=== PATIENT | female | born 1980 | race Caucasian/White ===

== ENCOUNTER → 2016-12-02 | Outpatient (CLI) | payer BC ==
[~2016-12-02] MED LIST: BENA25CA4 PO; MAXA10TA14 PO; MOME50SP; PERCOCET PO; SING10TA32 PO; TOPA100T8 OR; TOPA50TA7 PO; VALA1TAB OR; VOLT100T2 OR; ZYRT10TA2 PO
[2016-12-02 11:18] LABS: BASO % 0.7 % (0.0-1.0); EOS # 0.2 K/mm3 (0.0-0.50); EOS % 3.7 % (0.0-3.0); LARGE UNSTAINED CELL # 0.1 K/mm3 (0.0-0.4); LARGE UNSTAINED CELL % 1.9 % (0.0-4.0); LYMPH # 1.5 K/mm3 (1.5-4.5); LYMPH % 29.9 % (24.0-44.0); MEAN CORPUSCULAR HEMOGLOBIN 30.4 pg (27.0-33.0); MEAN CORPUSCULAR HGB CONC 34.7 g/dl (32.0-36.5); MEAN CORPUSCULAR VOLUME 87.6 fl (80.0-96.0); MONO # 0.4 K/mm3 (0.0-0.8); MONO % 8.2 % (0.0-5.0); NEUTROPHILS # 2.5 K/mm3 (1.8-7.7); NEUTROPHILS % 55.6 % (36.0-66.0); PLATELET COUNT, AUTOMATED 188 k/mm3 (150-450); RED CELL DISTRIBUTION WIDTH 13.3 % (11.5-14.5); WHITE BLOOD COUNT 4.6 K/mm3 (4.0-10.0)
[2016-12-02 11:34] LABS: ALBUMIN 3.5 GM/DL (3.2-5.2); ALBUMIN/GLOBULIN RATIO 1.17 (1.00-1.93); ALKALINE PHOSPHATASE 58 U/L (45-117); ALT/SGPT 30 U/L (12-78); ANION GAP 14 MEQ/L (8-16); AST/SGOT 20 U/L (15-37); BILIRUBIN,TOTAL 0.3 MG/DL (0.2-1.0); BLOOD UREA NITROGEN 7 MG/DL (7-18); CALCIUM LEVEL 8.8 MG/DL (8.5-10.1); CARBON DIOXIDE LEVEL 24 MEQ/L (21-32); CHLORIDE LEVEL 106 MEQ/L (98-107); CREATININE FOR GFR 0.57 MG/DL (0.55-1.02); FERRITIN 38 NG/ML (8-252); GLOMERULAR FILTRATION RATE > 60.0 (>60); GLUCOSE, FASTING 77 MG/DL (70-105); MAGNESIUM LEVEL 2.1 MG/DL (1.8-2.4); PERCENT SATURATION 29.4 % (13.2-37.4); PHOSPHORUS LEVEL 3.7 MG/DL (2.5-4.9); POTASSIUM SERUM 3.9 MEQ/L (3.5-5.1); SODIUM LEVEL 144 MEQ/L (136-145); TOTAL IRON BINDING CAPACITY 218 UG/DL (250-450); TOTAL PROTEIN 6.5 GM/DL (6.4-8.2)
[2016-12-02 11:37] LABS: VITAMIN B12 LEVEL 1508 PG/ML (247-911)
[2016-12-04 11:32] LABS: PRETREATED FOLATE FOR RBCFOL 7.3 NG/ML
== END ==
LOC: M LAB 10:26
PROVIDERS: ATTEND Surgery
DX: K91.2 Postsurgical malabsorption, not elsewhere classified (principal); Z98.84 Bariatric surgery status; E55.9 Vitamin D deficiency, unspecified

== ENCOUNTER 2017-01-16 08:19 | Emergency (ER) | payer BC ==
[~2017-01-16] VITALS: Ht 157.5 cm; Wt 85.7 kg
[2017-01-16] MEDS ORDERED: MULT1TAB18 PO (08:54)
[2017-01-16] MEDS ORDERED: LEXA1TAB PO (08:54)
[2017-01-16] MEDS ORDERED: NS 1,000 ML IV ONE (09:30)
[2017-01-16 09:57] LABS: BASO % 0.5 % (0.0-1.0); CONTROL LINE UCG INT CTR LINE PRESENT; EOS # 0.3 K/mm3 (0.0-0.50); EOS % 4.6 % (0.0-3.0); LARGE UNSTAINED CELL # 0.1 K/mm3 (0.0-0.4); LARGE UNSTAINED CELL % 2.3 % (0.0-4.0); LYMPH # 1.3 K/mm3 (1.5-4.5); LYMPH % 21.2 % (24.0-44.0); MEAN CORPUSCULAR HEMOGLOBIN 29.4 pg (27.0-33.0); MEAN CORPUSCULAR HGB CONC 32.8 g/dl (32.0-36.5); MEAN CORPUSCULAR VOLUME 89.6 fl (80.0-96.0); MONO # 0.4 K/mm3 (0.0-0.8); MONO % 6.9 % (0.0-5.0); NEUTROPHILS # 3.7 K/mm3 (1.8-7.7); NEUTROPHILS % 64.6 % (36.0-66.0); PLATELET COUNT, AUTOMATED 198 k/mm3 (150-450); RED CELL DISTRIBUTION WIDTH 13.2 % (11.5-14.5); WHITE BLOOD COUNT 5.7 K/mm3 (4.0-10.0)
[2017-01-16 10:09] LABS: ALBUMIN/GLOBULIN RATIO 0.83 (1.00-1.93); ALKALINE PHOSPHATASE 59 U/L (45-117); ALT/SGPT 19 U/L (12-78); ANION GAP 9 MEQ/L (8-16); AST/SGOT 10 U/L (15-37); BILIRUBIN,DIRECT < 0.1 MG/DL (0.0-0.2); BILIRUBIN,TOTAL 0.3 MG/DL (0.2-1.0); BLOOD UREA NITROGEN 4 MG/DL (7-18); CALCIUM LEVEL 8.8 MG/DL (8.5-10.1); CARBON DIOXIDE LEVEL 26 MEQ/L (21-32); CHLORIDE LEVEL 109 MEQ/L (98-107); CREATININE FOR GFR 0.51 MG/DL (0.55-1.02); GLOMERULAR FILTRATION RATE > 60.0 (>60); GLUCOSE, FASTING 82 MG/DL (70-105); POTASSIUM SERUM 3.1 MEQ/L (3.5-5.1); SODIUM LEVEL 144 MEQ/L (136-145); TOTAL PROTEIN 6.6 GM/DL (6.4-8.2)
[2017-01-16] MEDS ORDERED: ISOVUE-370 76% 100ML VIAL (Q9967) As Ordered ONE (10:19)
[2017-01-16 10:46] VITALS: BP 129/75
[2017-01-16] MEDS ORDERED: ULTR50TA PO (10:47)
[2017-01-16] MEDS ORDERED: POTA10TA16 PO (10:49)
--- NOTE | 2017-01-16 10:56 | REP ---
Dyspnea, possible pulmonary embolus. PRIORS: None. Contrast utilized: 75 mL Isovue 370. There is excellent visualization of the pulmonary arterial vasculature. There are no focal filling defects present that would be considered consistent with pulmonary emboli. There is no mediastinal or hilar mass or adenopathy. There are no pleural or pericardial effusions. The imaged upper abdomen and imaged osseous structures are within normal limits. Evaluation of the lung paulino show no abnormal masses, nodules, or opacities. IMPRESSION: CT findings are within normal limits. Signed by Brandon Beck DO 01/16/2017 11:06 A
--- NOTE | 2017-01-17 09:14 | ECGEPIP ---
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
== END 2017-01-16 10:54 | disposition home or self-care (01) ==
LOC: M ED 09:57
DX: M62.838 Other muscle spasm (principal); E87.5 Hyperkalemia; E66.9 Obesity, unspecified; Z79.899 Other long term (current) drug therapy; Z88.5 Allergy status to narcotic agent; Z88.0 Allergy status to penicillin; Z88.2 Allergy status to sulfonamides
CPT/HCPCS: 71275; 80048; 80076; 81001; 82550; 82553; 83690; 84703; 85025; 93005; 96360; 99282; Q9967

== ENCOUNTER → 2017-01-19 | Outpatient (REF) | payer BC ==
[~2017-01-19] MED LIST changes: +LEXA1TAB PO; +MULT1TAB18 PO; +POTA10TA16 PO; +ULTR50TA PO
[2017-01-19 11:37] LABS: ANION GAP 8 MEQ/L (8-16); BLOOD UREA NITROGEN 7 MG/DL (7-18); CALCIUM LEVEL 8.7 MG/DL (8.5-10.1); CARBON DIOXIDE LEVEL 26 MEQ/L (21-32); CHLORIDE LEVEL 112 MEQ/L (98-107); CREATININE FOR GFR 0.61 MG/DL (0.55-1.02); GLOMERULAR FILTRATION RATE > 60.0 (>60); GLUCOSE, FASTING 92 MG/DL (70-105); POTASSIUM SERUM 3.9 MEQ/L (3.5-5.1); SODIUM LEVEL 146 MEQ/L (136-145)
== END ==
LOC: M SFHCPLAZ 08:40
PROVIDERS: ATTEND Nurse Practitioner Family
DX: E87.6 Hypokalemia (principal)

== ENCOUNTER → 2017-05-09 | Outpatient (CLI) | payer BC ==
[~2017-05-09] MED LIST changes: +TOPA100T12 OR; -TOPA100T8 OR; -TOPA50TA7 PO; +TOPA50TA8 PO; -ULTR50TA PO; +ULTR50TA8 PO; -VALA1TAB OR; +VALA1TAB2 OR
[2017-05-09 10:42] LABS: BASO % 0.6 % (0.0-1.0); EOS # 0.1 K/mm3 (0.0-0.50); EOS % 2.9 % (0.0-3.0); LARGE UNSTAINED CELL # 0.1 K/mm3 (0.0-0.4); LARGE UNSTAINED CELL % 1.7 % (0.0-4.0); LYMPH # 1.6 K/mm3 (1.5-4.5); LYMPH % 30.1 % (24.0-44.0); MEAN CORPUSCULAR HEMOGLOBIN 29.8 pg (27.0-33.0); MEAN CORPUSCULAR VOLUME 90.4 fl (80.0-96.0); MONO # 0.2 K/mm3 (0.0-0.8); MONO % 3.9 % (0.0-5.0); NEUTROPHILS % 60.8 % (36.0-66.0); PLATELET COUNT, AUTOMATED 212 k/mm3 (150-450); RED CELL DISTRIBUTION WIDTH 13.1 % (11.5-14.5); WHITE BLOOD COUNT 4.9 K/mm3 (4.0-10.0)
[2017-05-09 11:37] LABS: ALBUMIN 3.1 GM/DL (3.2-5.2); ALBUMIN/GLOBULIN RATIO 0.91 (1.00-1.93); ALKALINE PHOSPHATASE 48 U/L (45-117); ALT/SGPT 20 U/L (12-78); ANION GAP 9 MEQ/L (8-16); AST/SGOT 14 U/L (15-37); BILIRUBIN,TOTAL 0.4 MG/DL (0.2-1.0); BLOOD UREA NITROGEN 11 MG/DL (7-18); CALCIUM LEVEL 8.8 MG/DL (8.5-10.1); CARBON DIOXIDE LEVEL 24 MEQ/L (21-32); CHLORIDE LEVEL 113 MEQ/L (98-107); CREATININE FOR GFR 0.72 MG/DL (0.55-1.02); FERRITIN 36 NG/ML (8-252); GLOMERULAR FILTRATION RATE > 60.0 (>60); GLUCOSE, FASTING 74 MG/DL (70-105); MAGNESIUM LEVEL 2.3 MG/DL (1.8-2.4); PERCENT SATURATION 33.7 % (13.2-45.0); PHOSPHORUS LEVEL 3.1 MG/DL (2.5-4.9); POTASSIUM SERUM 4.4 MEQ/L (3.5-5.1); SODIUM LEVEL 146 MEQ/L (136-145); TOTAL IRON BINDING CAPACITY 255 UG/DL (250-450); TOTAL PROTEIN 6.5 GM/DL (6.4-8.2)
[2017-05-10 10:51] LABS: VITAMIN B12 LEVEL 1111 PG/ML (247-911)
[2017-05-11 11:17] LABS: PRETREATED FOLATE FOR RBCFOL 10.3 NG/ML
== END ==
LOC: M LAB 08:57
PROVIDERS: ATTEND Surgery
DX: K91.2 Postsurgical malabsorption, not elsewhere classified (principal)

== ENCOUNTER 2017-09-03 13:35 | Emergency (ER) | payer BC ==
[~2017-09-03] VITALS: Ht 157.5 cm; Wt 62.7 kg
[2017-09-03] MEDS ORDERED: diphenhydrAMINE INJ 50MG/ML VIAL (J1200) IV ONE (17:30)
[2017-09-03] MEDS ORDERED: NS 1,000 ML IV ONE (17:30)
[2017-09-03] MEDS ORDERED: KETOROLAC 30 MG/ML VIAL (J1885) IV ONE (17:30)
[2017-09-03] MEDS ORDERED: ONDANSETRON 4MG/2ML VIAL (J2405) IV ONE (17:30)
[2017-09-03] MEDS ORDERED: KETO10TAB PO (18:30)
[2017-09-03] MEDS ORDERED: ZOFR4TAB3 PO (18:30)
[2017-09-03 18:35] VITALS: BP 102/50
== END 2017-09-03 18:37 | disposition home or self-care (01) ==
LOC: M ED 13:35
DX: G43.009 Migraine without aura, not intractable, without status migrainosus (principal); F41.9 Anxiety disorder, unspecified; F33.9 Major depressive disorder, recurrent, unspecified; Z79.899 Other long term (current) drug therapy; J30.89 Other allergic rhinitis; Z88.0 Allergy status to penicillin; Z88.1 Allergy status to other antibiotic agents; Z88.2 Allergy status to sulfonamides; Z88.5 Allergy status to narcotic agent; Z98.0 Intestinal bypass and anastomosis status; Z98.890 Other specified postprocedural states; Z87.891 Personal history of nicotine dependence
CPT/HCPCS: 96374; 96375; 99284; J1200; J1885; J2405

== ENCOUNTER → 2017-10-12 | Outpatient (CLI) | payer BC ==
[2017-10-12 20:44] LABS: BASO % 0.5 % (0.0-1.0); EOS # 0.3 10^3/uL (0.0-0.50); EOS % 3.3 % (0.0-3.0); HEMOGLOBIN 12.5 g/dl (12.0-16.0); IMMATURE GRANULOCYTE % 0.3 % (0-0); LYMPH # 3.1 10^3/uL (1.5-4.5); MEAN CORPUSCULAR HEMOGLOBIN 29.8 pg (27.0-33.0); MEAN CORPUSCULAR HGB CONC 32.9 g/dl (32.0-36.5); MEAN CORPUSCULAR VOLUME 90.7 fl (80.0-96.0); MONO # 0.4 10^3/uL (0.0-0.8); MONO % 5.7 % (0.0-5.0); NEUTROPHILS # 3.7 10^3/uL (1.8-7.7); NEUTROPHILS % 49.2 % (36.0-66.0); PLATELET COUNT, AUTOMATED 241 10^3/uL (150-450); RED BLOOD COUNT 4.19 10^6/uL (4.00-5.40); RED CELL DISTRIBUTION WIDTH 12.2 % (11.5-14.5); WHITE BLOOD COUNT 7.5 10^3/uL (4.0-10.0)
[2017-10-12 21:02] LABS: ALBUMIN 3.7 GM/DL (3.2-5.2); ALKALINE PHOSPHATASE 57 U/L (45-117); ALT/SGPT 44 U/L (12-78); ANION GAP 6 MEQ/L (8-16); AST/SGOT 31 U/L (7-37); BILIRUBIN,TOTAL 0.3 MG/DL (0.2-1.0); BLOOD UREA NITROGEN 15 MG/DL (7-18); CARBON DIOXIDE LEVEL 26 MEQ/L (21-32); CHLORIDE LEVEL 109 MEQ/L (98-107); CREATININE FOR GFR 0.71 MG/DL (0.55-1.02); FERRITIN 51 NG/ML (8-252); GLOMERULAR FILTRATION RATE > 60.0 (>60); GLUCOSE, FASTING 79 MG/DL (70-105); IRON (FE) 94 UG/DL (50-170); MAGNESIUM LEVEL 2.2 MG/DL (1.8-2.4); PERCENT SATURATION 29.7 % (13.2-45.0); PHOSPHORUS LEVEL 2.8 MG/DL (2.5-4.9); SODIUM LEVEL 141 MEQ/L (136-145); TOTAL IRON BINDING CAPACITY 316 UG/DL (250-450); TOTAL PROTEIN 7.4 GM/DL (6.4-8.2)
[2017-10-12 21:04] LABS: TOTAL 25(OH) VITAMIN D 48.2 NG/ML (30.0-100.0); VITAMIN B12 LEVEL > 2000 PG/ML (247-911)
[2017-10-12 22:09] LABS: ESTIMATED AVERAGE GLUCOSE 111 MG/DL (60-110); HEMOGLOBIN A1c 5.5 %
[2017-10-15 18:58] LABS: PRETREATED FOLATE FOR RBCFOL 11.7 NG/ML; RBC FOLATE 646.6 NG/ML (280-791)
== END ==
LOC: M LAB 19:53
DX: K91.2 Postsurgical malabsorption, not elsewhere classified (principal)
CPT/HCPCS: 83550

== ENCOUNTER → 2017-10-24 | Outpatient (REF) | payer BC | LOC: M SFHCLERA 09:43 | DX: R50.9 Fever, unspecified (principal) ==

== ENCOUNTER → 2017-11-20 | Outpatient (REF) | payer BC | LOC: M SFHCLERA 17:24 | DX: R30.0 Dysuria (principal); N89.8 Other specified noninflammatory disorders of vagina | CPT/HCPCS: 87086 ==

== ENCOUNTER → 2018-01-04 | Outpatient (CLI) | payer BC ==
[2018-01-04 19:43] LABS: PROLACTIN 5.3 NG/ML
[2018-01-04 19:44] LABS: FREE T4 0.78 NG/DL (0.76-1.46); THYROID STIMULATING HORMONE 0.793 uIU/ML (0.358-3.740)
== END ==
LOC: M LAB 16:52
DX: N92.6 Irregular menstruation, unspecified (principal); Z32.02 Encounter for pregnancy test, result negative
CPT/HCPCS: 84146

== ENCOUNTER → 2018-05-16 | Outpatient (CLI) | payer BC | LOC: M RAD 14:55 | DX: R10.9 Unspecified abdominal pain (principal); N83.201 Unspecified ovarian cyst, right side; N85.2 Hypertrophy of uterus | CPT/HCPCS: 76856 ==

== ENCOUNTER → 2018-06-09 | Outpatient (REF) | payer BC ==
[2018-06-09 12:34] LABS: HEMATOCRIT 38.5 % (36.0-47.0); HEMOGLOBIN 12.7 g/dl (12.0-15.5); MEAN CORPUSCULAR HEMOGLOBIN 31.4 pg (27.0-33.0); MEAN CORPUSCULAR VOLUME 95.3 fl (80.0-96.0); PLATELET COUNT, AUTOMATED 248 10^3/uL (150-450); RED BLOOD COUNT 4.04 10^6/uL (4.00-5.40); RED CELL DISTRIBUTION WIDTH 12.3 % (11.5-14.5); WHITE BLOOD COUNT 5.1 10^3/uL (4.0-10.0)
[2018-06-09 13:11] LABS: VITAMIN B12 LEVEL > 2000 PG/ML (247-911)
[2018-06-09 13:37] LABS: ALBUMIN 3.4 GM/DL (3.2-5.2); ALBUMIN/GLOBULIN RATIO 1.03 (1.00-1.93); ALKALINE PHOSPHATASE 60 U/L (45-117); ALT/SGPT 33 U/L (12-78); ANION GAP 8 MEQ/L (8-16); AST/SGOT 22 U/L (7-37); BILIRUBIN,TOTAL 0.3 MG/DL (0.2-1.0); BLOOD UREA NITROGEN 13 MG/DL (7-18); CALCIUM LEVEL 8.8 MG/DL (8.5-10.1); CARBON DIOXIDE LEVEL 25 MEQ/L (21-32); CHLORIDE LEVEL 111 MEQ/L (98-107); CHOLESTEROL LEVEL 203 MG/DL (<200); CREATININE FOR GFR 0.76 MG/DL (0.55-1.30); FREE T4 0.86 NG/DL (0.76-1.46); GLOMERULAR FILTRATION RATE > 60.0 (>60); GLUCOSE, FASTING 68 MG/DL (70-100); HDL CHOLESTEROL 58 MG/DL (>40); NON-HDL-C 145 MG/DL; POTASSIUM SERUM 4.4 MEQ/L (3.5-5.1); SODIUM LEVEL 144 MEQ/L (136-145); THYROID STIMULATING HORMONE 0.471 uIU/ML (0.358-3.740); TOTAL PROTEIN 6.7 GM/DL (6.4-8.2); TRIGLYCERIDES LEVEL 80 MG/DL (<150)
== END ==
LOC: M SFHCPLAZ 08:38
DX: Z00.00 Encounter for general adult medical examination without abnormal findings (principal); E78.5 Hyperlipidemia, unspecified; Z98.84 Bariatric surgery status
CPT/HCPCS: 84443

== ENCOUNTER → 2018-06-13 | Outpatient (CLI) | payer BC | LOC: M RAD 06:41 | DX: K46.9 Unspecified abdominal hernia without obstruction or gangrene (principal) ==

== ENCOUNTER 2018-09-09 06:06 | Day surgery (SDC) | payer BC ==
[2018-09-09] MEDS ORDERED: LR 1,000 ML IV (06:15)
[2018-09-09 06:35] LABS: HEMATOCRIT 36.1 % (36.0-47.0); HEMOGLOBIN 12.1 g/dl (12.0-15.5); MEAN CORPUSCULAR HEMOGLOBIN 30.9 pg (27.0-33.0); MEAN CORPUSCULAR HGB CONC 33.5 g/dl (32.0-36.5); MEAN CORPUSCULAR VOLUME 92.1 fl (80.0-96.0); PLATELET COUNT, AUTOMATED 212 10^3/uL (150-450); RED BLOOD COUNT 3.92 10^6/uL (4.00-5.40)
[2018-09-09 06:48] LABS: CONTROL LINE UCG INT CTR LINE PRESENT; URINE PREG TEST NEGATIVE (NEGATIVE)
[2018-09-09 07:02] LABS: ANION GAP 7 MEQ/L (8-16); BLOOD UREA NITROGEN 11 MG/DL (7-18); CALCIUM LEVEL 8.6 MG/DL (8.5-10.1); CARBON DIOXIDE LEVEL 27 MEQ/L (21-32); CHLORIDE LEVEL 108 MEQ/L (98-107); CREATININE FOR GFR 0.73 MG/DL (0.55-1.30); GLOMERULAR FILTRATION RATE > 60.0 (>60); GLUCOSE, FASTING 76 MG/DL (70-100); POTASSIUM SERUM 3.8 MEQ/L (3.5-5.1); SODIUM LEVEL 142 MEQ/L (136-145)
[2018-09-09 07:03] LABS: ALBUMIN 3.4 GM/DL (3.2-5.2); ALKALINE PHOSPHATASE 64 U/L (45-117); ALT/SGPT 56 U/L (12-78); AST/SGOT 43 U/L (7-37); BILIRUBIN,TOTAL 0.4 MG/DL (0.2-1.0); TOTAL PROTEIN 6.5 GM/DL (6.4-8.2)
[2018-09-09] MEDS ORDERED: LIDOCAINE 1% SDV INJ 30 ML VIAL As Ordered (07:22)
[2018-09-09] MEDS ORDERED: BUPIVACAINE HCL 0.25% 30 ML VIAL As Ordered ×2 (07:23→07:25)
[2018-09-09] MEDS ORDERED: VASOPRESSIN INJ 20 UNITS/ML VIAL As Ordered (07:24)
[2018-09-09] MEDS: ACETAMINOPHEN 650 MG SUPP As Ordered (08:00)
[2018-09-09] MEDS ORDERED: GLYCOPYRROLATE INJ 0.2 MG/ML 2 ML VIAL As Ordered (08:10)
[2018-09-09] MEDS ORDERED: fentaNYL 250 MCG/5 ML INJECTION (J3010) As Ordered (08:10)
[2018-09-09] MEDS ORDERED: KETOROLAC 60 MG/2 ML VIAL (J1885) As Ordered (08:10)
[2018-09-09] MEDS ORDERED: METOCLOPRAMIDE INJ 10MG/2ML VIAL (J2765) As Ordered (08:10)
[2018-09-09] MEDS ORDERED: dexameTHASONE 4 MG/ML 1ML VIAL (J1100) As Ordered (08:10)
[2018-09-09] MEDS ORDERED: LIDOCAINE 2% INJ 100 MG/5 ML SDV (FOR ANES.) As Ordered (08:10)
[2018-09-09] MEDS ORDERED: ROCURONIUM BROMIDE 50 MG/5 ML VIAL As Ordered ×2 (08:10)
[2018-09-09] MEDS ORDERED: ONDANSETRON 4MG/2ML VIAL (J2405) As Ordered (08:10)
[2018-09-09] MEDS ORDERED: PROPOFOL 200 MG/20 ML VIAL As Ordered (08:10)
[2018-09-09] MEDS ORDERED: MIDAZOLAM INJ 2 MG/2 ML VIAL (J2250) As Ordered (08:10)
[2018-09-09] MEDS ORDERED: NEOSTIGMINE 10 MG/10 ML VIAL (J2710) As Ordered (08:10)
[2018-09-09] MEDS ORDERED: LIDOCAINE 2% JELLY 30 ML As Ordered (08:17)
[2018-09-09] MEDS ORDERED: HYDROmorphone HCL 2 MG/ML 1ML VIAL (J1170) As Ordered (08:18)
[2018-09-09] MEDS: FLUORESCEIN 10% (100MG/ML) 5 ML VIAL As Ordered (09:05)
[2018-09-09] MEDS: BUPIVACAINE/EPIN 0.25% 30 ML VIAL As Ordered (10:21)
[2018-09-09] MEDS ORDERED: RIZATRIPTAN BENZOATE 10 MG TAB PO (10:45)
[2018-09-09] MEDS ORDERED: ACETAMINOPHEN TAB 650MG DOSE (2X325MG) PO (10:45)
[2018-09-09] MEDS ORDERED: MORPHINE 4 MG/ML 1ML VIAL/SYRINGE (J2270) IV (10:45)
[2018-09-09] MEDS ORDERED: PERCOCET 5MG/325MG TAB As Ordered (11:06)
[2018-09-09] MEDS ORDERED: fentaNYL 100 MCG/2 ML INJECTION (J3010) As Ordered (11:06)
[2018-09-09] MEDS: fentaNYL 100 MCG/2 ML INJECTION (J3010) IV ×4 (11:10→11:25)
[2018-09-09] MEDS ORDERED: ONDANSETRON 4MG/2ML VIAL (J2405) IV (11:15)
[2018-09-09] MEDS: LR 1,000 ML IV ×2 (11:15→12:38)
[2018-09-09] MEDS: PERCOCET 5MG/325MG TAB PO ×2 (11:20→12:03)
[2018-09-09] MEDS: HYDROMORPHONE HCL 0.5 MG/ 0.5 ML SYRINGE (J1170 PER 1) IV ×2 (11:40→11:45)
[2018-09-09] MEDS: ceFAZolin SOD 1 GM in D5W MINI-BAG PLUS 50 ML IV (16:37)
[2018-09-09] MEDS: NORCO, ANEXSIA 5/325MG TABLET (HYDROcodone/ACETAMINOPHEN) PO ×2 (16:38→20:42)
[2018-09-09] MEDS: KETOROLAC 30 MG/ML VIAL (J1885) IV ×2 (17:24→23:28)
[2018-09-09] MEDS: ESCITALOPRAM OXALATE 10 MG TAB (LEXAPRO) PO (17:24)
[2018-09-09] MEDS: ONDANSETRON 4MG/2ML VIAL (J2405) IV (19:00)
[2018-09-09] MEDS: POTASSIUM CHLORIDE 10 MEQ SR TABLET PO (20:41)
[2018-09-09] MEDS: MONTELUKAST 10 MG TAB PO (20:41)
[2018-09-09] MEDS: AMITRIPTYLINE 25 MG TAB PO (21:29)
[2018-09-09] MEDS: TOPIRAMATE (TopAMAX) 100 MG TAB PO (21:29)
[2018-09-09] MEDS: CETIRIZINE (ZyrTEC) 10 MG TAB PO (21:29)
[2018-09-10] MEDS: ceFAZolin SOD 1 GM in D5W MINI-BAG PLUS 50 ML IV ×2 (00:47→08:23)
[2018-09-10] MEDS: NORCO, ANEXSIA 5/325MG TABLET (HYDROcodone/ACETAMINOPHEN) PO ×2 (04:06→08:29)
[2018-09-10] MEDS: KETOROLAC 30 MG/ML VIAL (J1885) IV (07:24)
[2018-09-10] MEDS: ESCITALOPRAM OXALATE 10 MG TAB (LEXAPRO) PO (08:23)
[2018-09-10] MEDS: POTASSIUM CHLORIDE 10 MEQ SR TABLET PO (08:23)
[2018-09-10] MEDS: CYANOCOBALAMIN 500 MCG TAB PO (08:23)
[2018-09-10] MEDS ORDERED: RIZATRIPTAN BENZOATE 10 MG TAB PO (09:45)
== END 2018-09-10 10:10 | disposition home or self-care (01) ==
LOC: M SDC 06:06 → M PED 12:30
DX: R10.2 Pelvic and perineal pain (principal); G89.29 Other chronic pain; N83.291 Other ovarian cyst, right side; N92.1 Excessive and frequent menstruation with irregular cycle; N80.0 Endometriosis of uterus; N72 Inflammatory disease of cervix uteri; D25.1 Intramural leiomyoma of uterus; K43.9 Ventral hernia without obstruction or gangrene; G43.909 Migraine, unspecified, not intractable, without status migrainosus; F41.9 Anxiety disorder, unspecified; J30.89 Other allergic rhinitis; Z88.0 Allergy status to penicillin; Z88.2 Allergy status to sulfonamides; Z88.5 Allergy status to narcotic agent; Z79.899 Other long term (current) drug therapy; Z98.84 Bariatric surgery status
CPT/HCPCS: 58571

== ENCOUNTER 2019-01-18 00:21 | Emergency (ER) | payer BC ==
[~2019-01-18] VITALS: Ht 157.5 cm; Wt 71.8 kg
[~2019-01-18 00:21] MED LIST changes: +AMIT75TA PO; +BOTO10VL IM; +BUTACAP78 PO; +HYDR-3715 PO; +KETO10TAB PO; +LARI1TAB3 PO; +VITA100018 PO; +ZOFR4TAB14 PO; +ZYRT10CA5 PO; -ZYRT10TA2 PO
[2019-01-18 01:59] LABS: AMORPHOUS SEDIMENT SMALL (NEGATIVE); APPEARANCE, URINE CLOUDY (CLEAR); BACTERIA, URINE AUTO 1+ (NEGATIVE); BILIRUBIN, URINE AUTO NEGATIVE (NEGATIVE); BLOOD, URINE BLOOD 3+ (NEGATIVE); COLOR, URINE YELLOW (YELLOW); GLUCOSE, URINE (UA) AUTO NEGATIVE (NEGATIVE); KETONE, URINE AUTO NEGATIVE (NEGATIVE); LEUKOCYTE ESTERASE, URINE AUTO 3+ (NEGATIVE); MUCUS, URINE SMALL (NEGATIVE); NITRITE, URINE AUTO NEGATIVE (NEGATIVE); PROTEIN, URINE AUTO 1+ mg/dL (NEGATIVE); RBC, URINE AUTO TNTC /HPF (0-3); SPECIFIC GRAVITY URINE AUTO 1.016 (1.002-1.035); SQUAMOUS EPITHELIAL CELL UR AU 1 /HPF (0-6); TRANSITIONAL EPITHELIAL AUTO 1 /HPF; UROBILINOGEN, URINE AUTO 0.2 mg/dL (0.0-2.0); WBC, URINE AUTO TNTC /HPF (0-3)
[2019-01-18] MEDS ORDERED: PHENAZOPYRIDINE 100 MG TAB PO ONE (03:30)
[2019-01-18] MEDS ORDERED: CIPROFLOXACIN 500 MG TAB PO ONE (03:30)
[2019-01-18] MEDS ORDERED: DIFL150T PO (03:32)
[2019-01-18] MEDS ORDERED: PYRI1TAB5 PO (03:32)
[2019-01-18] MEDS ORDERED: CIPR-249 PO (03:32)
[2019-01-18] MEDS ORDERED: NS 500 ML IV ONE (03:45)
[2019-01-18] MEDS ORDERED: CIPROFLOXACIN 400 MG in APPROPRIATE DILUENT 1 EA IV ONE (03:45)
--- NOTE | 2019-01-18 05:35 | REPVR ---
EXAM: CT Abdomen and Pelvis Without Contrast EXAM DATE/TIME: 01/18/2019 3:33 AM CLINICAL HISTORY: 38 years old, female; Pain; Abdominal pain; Colic; Patient HX: Left colic; Additional info: L colic TECHNIQUE: Imaging protocol: Axial computed tomography images of the abdomen and pelvis without contrast. Coronal and sagittal reformatted images were created and reviewed. Radiation optimization: All CT scans at this facility use at least one of these dose optimization techniques: automated exposure control; mA and/or kV adjustment per patient size (includes targeted exams where dose is matched to clinical indication); or iterative reconstruction. COMPARISON: CT ABD PELVIS WITH CONTRAST 07/25/2014 7:45 PM FINDINGS: Lower thorax: Minimal bibasilar fibro-atelectatic change. ABDOMEN: Liver: Normal. No mass. Gallbladder and bile ducts: Status post cholecystectomy. Pancreas: Normal. No ductal dilation. Spleen: Normal. No splenomegaly. Adrenals: Normal. No mass. Kidneys and ureters: Minimal nonobstructing bilateral renal calculi. 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 There is collapse of the bypassed stomach. Surgical clips and sutures at the cecal tip consistent with appendectomy. Mild stool throughout much of the colon. Few colonic particularly diverticulitis. Appendix: No evidence of appendicitis. PELVIS: Bladder: Unremarkable as visualized. Reproductive: Status post hysterectomy. ABDOMEN and PELVIS: Intraperitoneal space: Normal. No free air. No significant fluid collection. Bones/joints: No acute fracture. No dislocation. Soft tissues: Small fat filled umbilical hernia. Vasculature: Normal. No abdominal aortic aneurysm. Lymph nodes: Normal. No enlarged lymph nodes. IMPRESSION: 1. Interval gastric bypass since 07/25/2014. 2. Status post cholecystectomy which is similar. 3. Interval hysterectomy and appendectomy. 4. Minimal nonobstructing bilateral renal calculi. Electronically signed by: Ralph Winter On 01/18/2019 05:34:46 AM
[2019-01-18 05:49] VITALS: BP 125/69
== END 2019-01-18 05:50 | disposition home or self-care (01) ==
LOC: M ED 00:21
DX: N39.0 Urinary tract infection, site not specified (principal); F32.9 Major depressive disorder, single episode, unspecified; J45.909 Unspecified asthma, uncomplicated; J30.2 Other seasonal allergic rhinitis; G43.909 Migraine, unspecified, not intractable, without status migrainosus; Z98.84 Bariatric surgery status; N20.0 Calculus of kidney; Z79.899 Other long term (current) drug therapy; Z88.0 Allergy status to penicillin; Z88.2 Allergy status to sulfonamides; Z88.5 Allergy status to narcotic agent
CPT/HCPCS: 74176; 81001; 87088; 87186; 96365; 96366; 99284; J0744

== ENCOUNTER → 2019-06-03 | Outpatient (CLI) | payer BC ==
[~2019-06-03] MED LIST changes: +CIPR-249 PO; +DIFL150T PO; +PYRI1TAB5 PO
[2019-06-03 09:30] LABS: BASO # 0.1 10^3/uL (0.0-0.2); EOS # 0.3 10^3/uL (0.0-0.50); EOS % 5.1 % (0.0-3.0); HEMATOCRIT 35.9 % (36.0-47.0); HEMOGLOBIN 11.7 g/dl (12.0-15.5); LYMPH # 1.7 10^3/uL (1.5-4.5); LYMPH % 31.6 % (24.0-44.0); MEAN CORPUSCULAR HGB CONC 32.6 g/dl (32.0-36.5); MEAN CORPUSCULAR VOLUME 95.2 fl (80.0-96.0); MONO # 0.3 10^3/uL (0.0-0.8); MONO % 5.3 % (0.0-5.0); PLATELET COUNT, AUTOMATED 230 10^3/uL (150-450); RED BLOOD COUNT 3.77 10^6/uL (4.00-5.40); WHITE BLOOD COUNT 5.3 10^3/uL (4.0-10.0)
[2019-06-03 09:45] LABS: ALBUMIN 3.3 GM/DL (3.2-5.2); ALT/SGPT 28 U/L (12-78); BILIRUBIN,TOTAL 0.4 MG/DL (0.2-1.0); BLOOD UREA NITROGEN 15 MG/DL (7-18); CARBON DIOXIDE LEVEL 27 MEQ/L (21-32); CHLORIDE LEVEL 114 MEQ/L (98-107); CREATININE FOR GFR 0.66 MG/DL (0.55-1.30); GLOMERULAR FILTRATION RATE > 60.0 (>60); GLUCOSE, FASTING 88 MG/DL (70-100); POTASSIUM SERUM 4.5 MEQ/L (3.5-5.1); SODIUM LEVEL 149 MEQ/L (136-145); TOTAL PROTEIN 6.2 GM/DL (6.4-8.2)
[2019-06-06 09:03] LABS: TOTAL 25(OH) VITAMIN D 31.2 NG/ML (30.0-100.0)
[2019-06-06 09:04] LABS: FOLATE 17.8 NG/ML (>5.4); VITAMIN B12 LEVEL 519 PG/ML (247-911)
[2019-06-08 00:06] LABS: VITAMIN E(ALPHA TOCOPHEROL) 15.4 mg/L (5.9-19.4); VITAMIN E(GAMMA TOCOPHEROL) 0.8 mg/L (0.7-4.9)
== END ==
LOC: M LAB 08:35
PROVIDERS: ATTEND Psychiatry & Neurology Neurology
DX: G43.909 Migraine, unspecified, not intractable, without status migrainosus (principal); Z98.84 Bariatric surgery status

== ENCOUNTER → 2019-07-16 | Outpatient (REF) | payer BC ==
[2019-07-16 14:58] LABS: APPEARANCE, URINE HAZY (CLEAR); BACTERIA, URINE AUTO NEGATIVE (NEGATIVE); BILIRUBIN, URINE AUTO NEGATIVE (NEGATIVE); BLOOD, URINE BLOOD NEGATIVE (NEGATIVE); COLOR, URINE YELLOW (YELLOW); GLUCOSE, URINE (UA) AUTO NEGATIVE (NEGATIVE); KETONE, URINE AUTO NEGATIVE (NEGATIVE); LEUKOCYTE ESTERASE, URINE AUTO NEGATIVE (NEGATIVE); MUCUS, URINE SMALL (NEGATIVE); NITRITE, URINE AUTO NEGATIVE (NEGATIVE); PROTEIN, URINE AUTO NEGATIVE (NEGATIVE); RBC, URINE AUTO 1 /HPF (0-3); SPECIFIC GRAVITY URINE AUTO 1.016 (1.002-1.035); SQUAMOUS EPITHELIAL CELL UR AU 3 /HPF (0-6); UROBILINOGEN, URINE AUTO 0.2 mg/dL (0.0-2.0); WBC, URINE AUTO 0 /HPF (0-3)
== END ==
LOC: M LAB REF 08:35
PROVIDERS: ATTEND Physician Assistant Medical
DX: N39.0 Urinary tract infection, site not specified (principal)

== ENCOUNTER → 2020-02-13 | Outpatient (CLI) | payer BC ==
[~2020-02-13] MED LIST changes: -VALA1TAB2 OR; +VALA1TAB5 OR
[2020-02-13 09:08] LABS: HEMATOCRIT 36.3 % (36.0-47.0); HEMOGLOBIN 11.7 g/dl (12.0-15.5); MEAN CORPUSCULAR HEMOGLOBIN 28.4 pg (27.0-33.0); MEAN CORPUSCULAR HGB CONC 32.2 g/dl (32.0-36.5); MEAN CORPUSCULAR VOLUME 88.1 fl (80.0-96.0); PLATELET COUNT, AUTOMATED 233 10^3/uL (150-450); RED BLOOD COUNT 4.12 10^6/uL (4.00-5.40); WHITE BLOOD COUNT 4.3 10^3/uL (4.0-10.0)
[2020-02-13 09:43] LABS: ALBUMIN 3.2 GM/DL (3.2-5.2); ALT/SGPT 29 U/L (12-78); BILIRUBIN,TOTAL 0.3 MG/DL (0.2-1.0); BLOOD UREA NITROGEN 12 MG/DL (7-18); CALCIUM LEVEL 8.5 MG/DL (8.5-10.1); CARBON DIOXIDE LEVEL 23 MEQ/L (21-32); CHLORIDE LEVEL 115 MEQ/L (98-107); CREATININE FOR GFR 0.67 MG/DL (0.55-1.30); FREE T4 0.88 NG/DL (0.76-1.46); GLOMERULAR FILTRATION RATE > 60.0 (>60); GLUCOSE, FASTING 87 MG/DL (70-100); POTASSIUM SERUM 3.9 MEQ/L (3.5-5.1); SODIUM LEVEL 144 MEQ/L (136-145); THYROID STIMULATING HORMONE 0.667 uIU/ML (0.358-3.740); TOTAL PROTEIN 6.6 GM/DL (6.4-8.2)
[2020-02-13 09:47] LABS: FOLLICLE STIMULATING HORMONE 9.6 mIU/mL; LUTEINIZING HORMONE 10.8 mIU/mL
[2020-02-13 09:56] LABS: HEMOGLOBIN A1c 5.1 %
== END ==
LOC: M LAB 08:28
PROVIDERS: ATTEND Family Medicine
DX: R53.83 Other fatigue (principal); R45.4 Irritability and anger; B37.3 Candidiasis of vulva and vagina; F32.9 Major depressive disorder, single episode, unspecified

== ENCOUNTER → 2020-04-27 | Outpatient (REF) | payer BC ==
[~2020-04-27] MED LIST changes: +ALL10TAB2 PO; +AMBI5TAB PO; +DICY10CA13 PO; +FAMO1TAB25 PO; +IMIT50TA PO; +MULT1TAB8 PO; +ONDA4TAB6 PO; +SUCR1SS PO; -TOPA100T12 OR; +TOPA100T12 PO; +TOPI200T7 PO
[2020-05-23 14:07] LABS: APPEARANCE, URINE HAZY (CLEAR); BACTERIA, URINE AUTO NEGATIVE (NEGATIVE); BILIRUBIN, URINE AUTO NEGATIVE (NEGATIVE); BLOOD, URINE BLOOD NEGATIVE (NEGATIVE); COLOR, URINE YELLOW (YELLOW); GLUCOSE, URINE (UA) AUTO NEGATIVE (NEGATIVE); KETONE, URINE AUTO NEGATIVE (NEGATIVE); LEUKOCYTE ESTERASE, URINE AUTO NEGATIVE (NEGATIVE); MUCUS, URINE SMALL (NEGATIVE); NITRITE, URINE AUTO NEGATIVE (NEGATIVE); PROTEIN, URINE AUTO NEGATIVE (NEGATIVE); RBC, URINE AUTO 1 /HPF (0-3); SPECIFIC GRAVITY URINE AUTO 1.019 (1.002-1.035); SQUAMOUS EPITHELIAL CELL UR AU 1 /HPF (0-6); UROBILINOGEN, URINE AUTO 0.2 mg/dL (0.0-2.0); WBC, URINE AUTO 12 /HPF (0-3)
== END ==
LOC: M LAB REF 07:08
PROVIDERS: ATTEND Physician Assistant Medical
DX: N39.0 Urinary tract infection, site not specified (principal)

== ENCOUNTER 2020-05-31 17:46 | Emergency (ER) | payer BC ==
[~2020-05-31] VITALS: Ht 157.5 cm; Wt 86.1 kg
[~2020-05-31 17:46] MED LIST changes: -ALL10TAB2 PO; -AMBI5TAB PO; -DICY10CA13 PO; -FAMO1TAB25 PO; -IMIT50TA PO; -MULT1TAB8 PO; -ONDA4TAB6 PO; -SUCR1SS PO; -TOPI200T7 PO
[2020-05-31] MEDS ORDERED: ONDANSETRON 4MG/2ML VIAL IV ONE ×2 (19:15→22:45)
[2020-05-31] MEDS ORDERED: NS 1,000 ML IV ONE (19:15)
[2020-05-31] MEDS ORDERED: KETOROLAC 30 MG/ML 1ML VIAL IV ONE (19:15)
[2020-05-31 19:27] LABS: BASO % 0.4 % (0.0-1.0); EOS # 0.1 10^3/uL (0.0-0.5); EOS % 1.2 % (0.0-3.0); HEMATOCRIT 34.1 % (36.0-47.0); HEMOGLOBIN 10.9 g/dl (12.0-15.5); LYMPH # 1.3 10^3/uL (1.5-5.0); LYMPH % 18.6 % (24.0-44.0); MEAN CORPUSCULAR HEMOGLOBIN 27.6 pg (27.0-33.0); MEAN CORPUSCULAR VOLUME 86.3 fl (80.0-96.0); MONO # 0.9 10^3/uL (0.0-0.8); MONO % 12.6 % (0.0-5.0); NEUTROPHILS # 4.6 10^3/uL (1.5-8.5); NEUTROPHILS % 67.1 % (36.0-66.0); PLATELET COUNT, AUTOMATED 291 10^3/uL (150-450); RED BLOOD COUNT 3.95 10^6/uL (4.00-5.40); WHITE BLOOD COUNT 6.8 10^3/uL (4.0-10.0)
[2020-05-31 19:35] LABS: ALBUMIN 3.1 GM/DL (3.2-5.2); ALT/SGPT 47 U/L (12-78); BILIRUBIN,DIRECT < 0.1 MG/DL (0.0-0.2); BILIRUBIN,TOTAL 0.3 MG/DL (0.2-1.0); LIPASE 71 U/L (73-393); TOTAL PROTEIN 6.5 GM/DL (6.4-8.2)
[2020-05-31 21:13] VITALS: BP 113/58
[2020-05-31] MEDS ORDERED: ISOVUE-370 76% 100ML VIAL As Ordered ONE (21:28)
--- NOTE | 2020-05-31 22:20 | REPVR ---
PROCEDURE INFORMATION: Exam: CT Abdomen And Pelvis With Contrast Exam date and time: 05/31/2020 9:43 PM Age: 40 years old Clinical indication: Abdominal pain; Generalized; Additional info: nausea and diarrhea TECHNIQUE: Imaging protocol: Computed tomography of the abdomen and pelvis with intravenous contrast. Radiation optimization: All CT scans at this facility use at least one of these dose optimization techniques: automated exposure control; mA and/or kV adjustment per patient size (includes targeted exams where dose is matched to clinical indication); or iterative reconstruction. Contrast material: ISOVUE 370; Contrast volume: 100 ml; Contrast route: INTRAVENOUS (IV); COMPARISON: CT ABD PELVIS W/O CONTRAST 01/18/2019 3:42 AM FINDINGS: Lungs: The imaged portions of the lung bases are clear. The lungs were not fully imaged. Heart: No cardiomegaly or pericardial effusion. Liver: Unremarkable. No liver lesion is identified. The contour of the liver is smooth. No hepatomegaly is noted. Gallbladder and bile ducts: There has been a cholecystectomy. There is no fluid collection in the gallbladder fossa. No dilation of the bile ducts is noted. No calcified stones are seen in the common bile duct. Pancreas: Normal. No dilation of the main pancreatic duct is noted. There is no inflammatory fat stranding around the pancreas to suggest acute pancreatitis. Spleen: Normal. No splenomegaly is noted. Incidental note is made of two small accessory spleens. Adrenals: Normal. No adrenal mass is noted. Kidneys and ureters: The kidneys are normal in appearance. No renal lesion is noted. No stones are noted in the kidneys or ureters. There is no hydronephrosis or hydroureter. There are no wedge-shaped areas of low attenuation in the kidneys to suggest pyelonephritis. There is no renal abscess or perinephric fluid collection. Stomach and bowel: Postoperative changes are noted from a Issac-en-Y gastric bypass surgery. There is thickening of the wall of the ascending colon and transverse colon with associated pericolonic inflammatory fat stranding, which are findings compatible with a colitis. No perforated viscus, fistula, pneumatosis intestinalis, or bowel obstruction is noted. Appendix: The appendix has been removed. Intraperitoneal space: No fluid collection. No free air. Retroperitoneal space: No fluid collection. No mass. Vasculature: The abdominal aorta is patent, normal in caliber, and there is no dissection. The iliac arteries, common femoral arteries, renal arteries, celiac artery, superior mesenteric artery, and inferior mesenteric artery are patent. Lymph nodes: No enlarged lymph nodes. Bladder: The urinary bladder is decompressed, limiting its optimal evaluation. No stones are seen in the bladder. Reproductive: There has been a hysterectomy. The ovaries are not identified and may have been removed. No adnexal mass is noted. Bones/joints: There is no fracture or dislocation. No suspicious osteolytic or osteoblastic lesion. Soft tissues: There is a small fat and fluid containing umbilical hernia. IMPRESSION: 1. Colitis involving the ascending colon and transverse colon. No free air or abscess. 2. Small fat and fluid containing umbilical hernia. Electronically signed by: Ashish Orourke On 05/31/2020 22:19:41 PM
[2020-05-31] MEDS ORDERED: DICYCLOMINE 10 MG CAP PO ONE (22:45)
[2020-05-31] MEDS ORDERED: DICY10CA13 PO (22:57)
[2020-05-31] MEDS ORDERED: ONDA4TAB6 PO (22:57)
[2020-08-01] MEDS ORDERED: SUCR1SS PO (14:33)
[2020-08-01] MEDS ORDERED: ALL10TAB2 PO (14:33)
[2020-08-01] MEDS ORDERED: TOPI200T7 PO (14:33)
[2020-08-01] MEDS ORDERED: IMIT50TA PO (14:33)
[2020-08-01] MEDS ORDERED: ONDA4TAB6 PO (14:33)
[2020-08-01] MEDS ORDERED: MULT1TAB8 PO (14:33)
[2020-08-01] MEDS ORDERED: AMBI5TAB PO (14:33)
[2020-08-01] MEDS ORDERED: FAMO1TAB25 PO (14:33)
== END 2020-05-31 23:11 | disposition home or self-care (01) ==
LOC: M ED 17:46
DX: A04.5 Campylobacter enteritis (principal); Z79.899 Other long term (current) drug therapy; Z91.048 Other nonmedicinal substance allergy status; Z88.0 Allergy status to penicillin; Z88.2 Allergy status to sulfonamides; Z88.1 Allergy status to other antibiotic agents; Z88.5 Allergy status to narcotic agent; Z90.710 Acquired absence of both cervix and uterus; Z98.890 Other specified postprocedural states; Z90.89 Acquired absence of other organs; Z98.0 Intestinal bypass and anastomosis status; Z86.69 Personal history of other diseases of the nervous system and sense organs
CPT/HCPCS: 74177; 80047; 80076; 81001; 83605; 83690; 85025; 87507; 96374; 96375; 96376; 99284; J1885; J2405; Q9967

== ENCOUNTER → 2020-08-03 | Outpatient (CLI) | payer BC ==
[~2020-08-03] MED LIST changes: +ALL10TAB2 PO; +AMBI5TAB PO; +DICY10CA13 PO; +FAMO1TAB25 PO; +IMIT50TA PO; +MULT1TAB8 PO; +ONDA4TAB6 PO; +SUCR1SS PO; +TOPI200T7 PO
== END ==
LOC: M LABSMTC 11:27
PROVIDERS: ATTEND Anesthesiology
DX: Z01.818 Encounter for other preprocedural examination (principal); Z20.828 Contact with and (suspected) exposure to other viral communicable diseases
CPT/HCPCS: C9803; U0003

== ENCOUNTER 2020-08-08 08:36 | Day surgery (SDC) | payer BC ==
[~2020-08-08] VITALS: Ht 157.5 cm; Wt 44.5 kg
[~2020-08-08 08:36] MED LIST changes: +NS 1,000 ML IV ONE
[2020-08-08] MEDS ORDERED: LIDOCAINE 2% 100MG/5ML SDV (FOR ANES.) As Ordered ONE ×2 (09:31→09:33)
[2020-08-08] MEDS ORDERED: propofoL 200 MG/20 ML VIAL As Ordered ONE ×2 (09:31→09:41)
--- NOTE | 2020-08-08 10:05 | ROOR ---
Patient Name: Nick Guzman Procedure Date: 08/08/2020 9:30 AM Date of : 1980 Age: 40 Room: [facility] Gender: Female Note Status: Finalized Procedure: Upper GI endoscopy Indications: Epigastric abdominal pain, Nausea Providers: Aubrey Bañuelos MD Referring MD: GUTIERREZ GALLARDO MD Requesting Provider: Medicines: Monitored Anesthesia Care Complications: No immediate complications. Procedure: Pre-Anesthesia Assessment: - Prior to the procedure, a History and Physical was performed, and patient medications and allergies were reviewed. The patient is competent. The risks and benefits of the procedure and the sedation options and risks were discussed with the patient. All questions were answered and informed consent was obtained. Patient identification and proposed procedure were verified by the physician, the nurse and the anesthesiologist in the procedure room. Mental Status Examination: alert and oriented. Airway Examination: normal oropharyngeal airway and neck mobility. Respiratory Examination: clear to auscultation. CV Examination: normal. Prophylactic Antibiotics: The patient does not require prophylactic antibiotics. Prior Anticoagulants: The patient has taken no previous anticoagulant or antiplatelet agents. ASA Grade Assessment: II - A patient with mild systemic disease. After reviewing the risks and benefits, the patient was deemed in satisfactory condition to undergo the procedure. The anesthesia plan was to use monitored anesthesia care (MAC). Immediately prior to administration of medications, the patient was re-assessed for adequacy to receive sedatives. The heart rate, respiratory rate, oxygen saturations, blood pressure, adequacy of pulmonary ventilation, and response to care were monitored throughout the procedure. The physical status of the patient was re-assessed after the procedure. The Endoscope was introduced through the mouth, and advanced to the second part of duodenum. The upper GI endoscopy was accomplished without difficulty. The patient tolerated the procedure well. Findings: The examined esophagus was normal. The Z-line was regular and was found 35 cm from the incisors. Evidence of a Issac-en-Y gastrojejunostomy was found. The gastrojejunal anastomosis was characterized by healthy appearing mucosa, erythema and an intact staple line. This was traversed. The fihcz-sq-hfkazwr limb was characterized by healthy appearing mucosa. The jejunojejunal anastomosis was characterized by healthy appearing mucosa. The cdwletpc-ki-zlqjvcp limb was not examined as it could not be found. Scattered mild inflammation characterized by erythema and granularity was found in the gastric fundus. Biopsies were taken with a cold forceps for Helicobacter pylori testing. Verification of patient identification for the specimen was done by the physician and nurse using the patient's name, date and medical record number. Estimated blood loss was minimal. The examined jejunum was normal. Biopsies for histology were taken with a cold forceps for evaluation of celiac disease. Impression: - Normal esophagus. - Z-line regular, 35 cm from the incisors. - Issac-en-Y gastrojejunostomy with gastrojejunal anastomosis characterized by healthy appearing mucosa, erythema and an intact staple line. - Gastritis. Biopsied. - Normal examined jejunum. Biopsied. Recommendation: - Patient has a contact number available for emergencies. The signs and symptoms of potential delayed complications were discussed with the patient. Return to normal activities tomorrow. Written discharge instructions were provided to the patient. - Post gastric bypass diet (small frequent meals and avoid fatty/ fried foods). - Continue present medications. - Await pathology results. - Follow an antireflux regimen. - Telephone GI clinic for pathology results in 2 weeks. - Return to primary care physician. Aubrey Bañuelos MD Aubrey Bañuelos MD 08/08/2020 10:04:42 AM Electronically signed by Aubrey Bañuelos MD Number of Addenda: 0 Note Initiated On: 08/08/2020 9:30 AM Estimated Blood Loss: Estimated blood loss was minimal.
[2020-08-08 10:20] VITALS: BP 155/69
== END 2020-08-08 10:31 | disposition home or self-care (01) ==
LOC: M OPP 08:36
PROVIDERS: ATTEND Internal Medicine Gastroenterology
DX: K29.70 Gastritis, unspecified, without bleeding (principal); Z98.0 Intestinal bypass and anastomosis status; R10.13 Epigastric pain; R11.0 Nausea; K21.9 Gastro-esophageal reflux disease without esophagitis; Z79.899 Other long term (current) drug therapy; Z88.0 Allergy status to penicillin; Z88.2 Allergy status to sulfonamides; Z88.5 Allergy status to narcotic agent

== ENCOUNTER → 2020-09-10 | Outpatient (REF) | payer SELFPAY ==
[~2020-09-10] MED LIST changes: -NS 1,000 ML IV ONE
== END ==
LOC: M LABCAHC 09:14
PROVIDERS: ATTEND Pediatrics
DX: Z20.828 Contact with and (suspected) exposure to other viral communicable diseases (principal)

== ENCOUNTER 2021-04-11 00:37 | Emergency (ER) | payer BC, SELFPAY ==
[~2021-04-11] VITALS: Ht 157.5 cm; Wt 73.3 kg
[~2021-04-11 00:37] MED LIST changes: +FAMO10TA50 PO; -FAMO1TAB25 PO
[2021-04-11 01:25] LABS: BASO # 0.1 10^3/uL (0.0-0.2); BASO % 0.8 % (0.0-1.0); EOS # 0.3 10^3/uL (0.0-0.5); EOS % 4.8 % (0.0-3.0); HEMATOCRIT 33.1 % (36.0-47.0); HEMOGLOBIN 10.2 g/dl (12.0-15.5); LYMPH % 31.3 % (24.0-44.0); MEAN CORPUSCULAR HGB CONC 30.8 g/dl (32.0-36.5); MEAN CORPUSCULAR VOLUME 84.4 fl (80.0-96.0); MONO # 0.4 10^3/uL (0.0-0.8); NEUTROPHILS # 3.7 10^3/uL (1.5-8.5); NEUTROPHILS % 56.8 % (36.0-66.0); PLATELET COUNT, AUTOMATED 345 10^3/uL (150-450); RED BLOOD COUNT 3.92 10^6/uL (4.00-5.40); WHITE BLOOD COUNT 6.5 10^3/uL (4.0-10.0)
[2021-04-11] MEDS ORDERED: KETOROLAC 30 MG/ML 1ML VIAL IV ONE (01:40)
[2021-04-11 02:00] LABS: ALBUMIN 3.5 GM/DL (3.2-5.2); ALT/SGPT 25 U/L (12-78); BILIRUBIN,DIRECT < 0.1 MG/DL (0.0-0.2); BILIRUBIN,TOTAL 0.2 MG/DL (0.2-1.0); BLOOD UREA NITROGEN 16 MG/DL (7-18); CALCIUM LEVEL 8.8 MG/DL (8.5-10.1); CARBON DIOXIDE LEVEL 26 MEQ/L (21-32); CHLORIDE LEVEL 111 MEQ/L (98-107); CK-MB VALUE MASS 2.1 NG/ML (<3.6); CPK CREATINE PHOSPHOKINASE 142 U/L (26-192); CREATININE FOR GFR 0.73 MG/DL (0.55-1.30); GLOMERULAR FILTRATION RATE > 60.0 (>58); GLUCOSE, FASTING 89 MG/DL (70-100); MB/CK RELATIVE INDEX 1.48 (< OR =4); POTASSIUM SERUM 3.5 MEQ/L (3.5-5.1); SODIUM LEVEL 143 MEQ/L (136-145); TOTAL PROTEIN 6.5 GM/DL (6.4-8.2); TROPONIN I < 0.02 NG/ML (< 0.10)
[2021-04-11] MEDS ORDERED: ISOVUE-370 76% 100ML VIAL As Ordered ONE (02:03)
--- NOTE | 2021-04-11 03:51 | REPVR ---
PROCEDURE INFORMATION: Exam: XR Chest Exam date and time: 04/11/2021 1:39 AM Age: 41 years old Clinical indication: Other: Chest pain TECHNIQUE: Imaging protocol: XR of the chest. Views: 1 view. COMPARISON: CT ANGIO CHEST 01/16/2017 10:23 AM FINDINGS: LUNGS and PLEURAL SPACE: The lungs are symmetrically expanded. Lung volumes are within normal limits. No evidence of peribronchial thickening. There is no consolidation, pneumothorax, or pleural effusion. No evidence of pulmonary vascular redistribution or overt edema. MEDIASTINUM: There is no mediastinal shift or widening. CARDIAC SILHOUETTE: Cardiothoracic ratio is within normal limits. BONY THORAX: No acute findings are seen. There is mild scoliosis. IMPRESSION: No acute infiltrate. Other findings discussed above. Electronically signed by: Allen Francis On 04/11/2021 03:50:35 AM
--- NOTE | 2021-04-11 04:09 | REPVR ---
PROCEDURE INFORMATION: Exam: CTA Chest With Contrast Exam date and time: 04/11/2021 3:31 AM Age: 41 years old Clinical indication: Sternal or substernal pain; Additional info: Antiphospolipid ab, chest pain TECHNIQUE: Imaging protocol: Computed tomographic angiography of the chest with contrast. 3D rendering (Not supervised by radiologist): MIP and/or 3D reconstructed images were created by the technologist. Radiation optimization: All CT scans at this facility use at least one of these dose optimization techniques: automated exposure control; mA and/or kV adjustment per patient size (includes targeted exams where dose is matched to clinical indication); or iterative reconstruction. Contrast material: ISOVUE 370; Contrast volume: 75 ml; Contrast route: INTRAVENOUS (IV); COMPARISON: CT ANGIO CHEST 01/16/2017 10:23 AM FINDINGS: PULMONARY ARTERIES: Diameter of the main pulmonary trunk is 2.4 cm, within normal limits. Enhancement within the pulmonary arteries is preserved bilaterally through the distal segmental levels, without evidence of acute appearing occlusive pulmonary emboli. HEART AND AORTA: Cardiac size is at the upper end of normal. Trace amount of pericardial fluid noted. Evaluation of the aortic root and ascending thoracic aorta is compromised by cardiac motion artifact. No thoracic aortic aneurysm or dissection is seen otherwise. Visualized proximal great vessels within the superior mediastinum are preserved. MEDIASTINUM: No mediastinal gas. The visualized thyroid gland is within normal limits. There is some soft tissue density within the anterior mediastinal fat, most likely residual thymus. No mediastinal hematoma seen. Trace amount of fluid is seen within the pericardial recesses. Mediastinal and hilar lymph nodes are noted but not obviously pathologic by size criteria. No hiatal hernia or periesophageal inflammatory change. LUNGS: The lungs are symmetrically expanded. There is no consolidation, pneumothorax or pleural effusion. No evidence of an acute interstitial or alveolar infiltrate. No peribronchial thickening. No pulmonary edema. No suspicious pulmonary parenchymal mass. UPPER ABDOMEN: No free air or free fluid within the visualized upper most abdomen. Surgical clips are seen in the gallbladder fossa. Gastric postoperative changes are noted, consistent with gastric bypass. The stomach is not sufficiently distended to evaluate for complete diagnostic evaluation. Small bowel loops incompletely assessed but in the left mid abdomen are slightly distended with fluid and gas up to 3 cm in diameter. There is postsurgical change of bowel loops in this area. This could be postoperative. Differential may include ileus or gastroenteritis. If there is suspicion for developing or partial obstruction, consider radiographic follow-up or small-bowel follow-through. Portions of the colon visualized colon are slightly distended with fecal material. This could be correlated clinically for significance. MSK AND BODY WALL: Mild degenerative changes of the spine noted. There is scoliosis. IMPRESSION: No evidence for acute pulmonary embolus. No pulmonary infiltrate, effusion or pneumothorax. Gastrointestinal findings, incompletely assessed to be correlated clinically for significance as discussed above. Other incidental findings discussed above. Electronically signed by: lAlen Francis On 04/11/2021 04:08:28 AM
[2021-04-11] MEDS ORDERED: PERCOCET 5MG/325MG TAB PO ONE (04:40)
[2021-04-11 04:57] LABS: CK-MB VALUE MASS 1.2 NG/ML (<3.6); CPK CREATINE PHOSPHOKINASE 151 U/L (26-192); MB/CK RELATIVE INDEX 0.79 (< OR =4); TROPONIN I < 0.02 NG/ML (< 0.10)
[2021-04-11] MEDS ORDERED: GI COCKTAIL 50ML BTL(HYOSCYAMINE/MAALOX/LIDOCAINE VISCOUS)(1:3:1) PO ONE (05:05)
[2021-04-11] MEDS ORDERED: SUCR1TA PO (05:11)
[2021-04-11 05:15] VITALS: BP 164/99
--- NOTE | 2021-04-11 07:50 | ED PDOC ---
Post-Departure Follow-Up radiology report faxed to Criss Lyle MD Apr 11, 2021 07:50
--- NOTE | 2021-04-11 16:59 | ECGEPIP ---
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
--- NOTE | 2021-04-11 17:00 | ECGEPIP ---
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
== END 2021-04-11 05:25 | disposition home or self-care (01) ==
LOC: M ED 00:37
DX: R07.89 Other chest pain (principal); G43.909 Migraine, unspecified, not intractable, without status migrainosus; F32.9 Major depressive disorder, single episode, unspecified; Z82.49 Family history of ischemic heart disease and other diseases of the circulatory system; Z79.899 Other long term (current) drug therapy; J30.9 Allergic rhinitis, unspecified; Z88.0 Allergy status to penicillin; Z88.2 Allergy status to sulfonamides; Z88.5 Allergy status to narcotic agent
CPT/HCPCS: 71045; 71275; 80048; 80076; 82550; 82553; 84484; 85025; 93005; 93041; 94760; 96374; 99285; J1885; Q9967

== ENCOUNTER → 2021-05-07 | Outpatient (CLI) | payer BC ==
[~2021-05-07] MED LIST changes: +SUCR1TA PO
[2021-05-07 14:47] LABS: ALBUMIN 3.4 GM/DL (3.2-5.2); ALT/SGPT 21 U/L (12-78); BILIRUBIN,TOTAL 0.3 MG/DL (0.2-1.0); BLOOD UREA NITROGEN 10 MG/DL (7-18); CALCIUM LEVEL 8.7 MG/DL (8.5-10.1); CARBON DIOXIDE LEVEL 23 MEQ/L (21-32); CHLORIDE LEVEL 111 MEQ/L (98-107); CHOLESTEROL LEVEL 188 MG/DL (<200); CHOLESTEROL RISK RATIO 3.357 (<5); FERRITIN 7 NG/ML (8-252); FOLATE 9.2 NG/ML; FREE T4 0.97 NG/DL (0.76-1.46); GLOMERULAR FILTRATION RATE > 60.0 (>58); GLUCOSE, FASTING 85 MG/DL (70-100); HDL CHOLESTEROL 56 MG/DL (>40); IRON (FE) 25 UG/DL (50-170); LDL CHOLESTEROL 118 MG/DL (<100); MAGNESIUM LEVEL 2.3 MG/DL (1.8-2.4); NON-HDL-C 132 MG/DL; PERCENT SATURATION 8.1 % (13.2-45.0); SODIUM LEVEL 142 MEQ/L (136-145); THYROID STIMULATING HORMONE 0.602 uIU/ML (0.358-3.740); TOTAL 25(OH) VITAMIN D 34.4 NG/ML (30.0-100.0); TOTAL IRON BINDING CAPACITY 309 UG/DL (250-450); TOTAL PROTEIN 6.3 GM/DL (6.4-8.2); TRIGLYCERIDES LEVEL 72 MG/DL (<150); VITAMIN B12 LEVEL 332 PG/ML
== END ==
LOC: M PLALAB 10:03
PROVIDERS: ATTEND Family Medicine
DX: F41.9 Anxiety disorder, unspecified (principal)

== ENCOUNTER → 2021-05-13 | Outpatient (CLI) | payer BC ==
--- NOTE | 2021-05-13 10:37 | REP ---
INDICATION: S/P HERNIA REPAIR W/ LLQ PAIN. COMPARISON: Abdomen ultrasound dated 06/13/2018. TECHNIQUE: Multiple ultrasonographic images of the left inguinal canal. FINDINGS: Patient has had an interim left inguinal canal hernia repair 2 years ago. The patient complains of pain when walking. The pain is in the same area as previously. She does not feel a bulge. When sitting or lying down there is no pain. Images of the left inguinal canal are performed without and with Valsalva. No hernia is identified today. Incidentally a left ovarian cyst is identified measuring 2.7 x 2.3 x 1.8 cm. There is vascular flow in the left ovary with the Doppler resistive index in the parenchymal arteries measuring 0.61. IMPRESSION: No left inguinal hernia is identified. There is a left ovarian cyst as described. There is vascular flow in the left ovary. <Electronically signed by Jevon Rivas > 05/13/21 1030
== END ==
LOC: M RAD 09:33
PROVIDERS: ATTEND Physician Assistant Medical
DX: N83.202 Unspecified ovarian cyst, left side (principal)

== ENCOUNTER → 2021-05-20 | Outpatient (REF) | payer BC | LOC: M SFHCWAGY 12:41 | PROVIDERS: ATTEND Obstetrics & Gynecology | DX: Z12.72 Encounter for screening for malignant neoplasm of vagina (principal); Z01.419 Encounter for gynecological examination (general) (routine) without abnormal findings ==

== ENCOUNTER 2021-06-17 01:13 | Emergency (ER) | payer BC ==
[~2021-06-17] VITALS: Ht 157.5 cm; Wt 66.1 kg
[2021-06-17] MEDS ORDERED: NS 1,000 ML IV ONE (08:45)
--- NOTE | 2021-06-17 09:22 | REP ---
INDICATION: LLQ pain/L pelvic pain, h/o ovarian cysts COMPARISON: None. TECHNIQUE: Transabdominal pelvic ultrasound followed by transvaginal examination for better evaluation of the endometrium and adnexa with color Doppler evaluation of the ovaries. FINDINGS: Bladder is unremarkable and measures 7.3 x 5.8 x 4.4 cm. Patient is noted to be status post hysterectomy. Right ovary is not visualized. Left ovary measures 2.7 x 3.5 x 2.6 cm (RI 0.45) and includes 2.1 cm dominant follicle. No significant pelvic free fluid. IMPRESSION: Complex presumed involuting follicle in the left ovary. <Electronically signed by Armando Patel > 06/17/21 [id number]
[2021-06-17] MEDS: GASTROGRAFIN SOLUTION 30ML PO SCH ×2 (10:20→11:07)
[2021-06-17 10:21] LABS: BASO # 0.1 10^3/uL (0.0-0.2); BASO % 0.9 % (0.0-1.0); EOS # 0.2 10^3/uL (0.0-0.5); EOS % 3.9 % (0.0-3.0); HEMATOCRIT 31.4 % (36.0-47.0); HEMOGLOBIN 9.8 g/dl (12.0-15.5); LYMPH # 1.2 10^3/uL (1.5-5.0); LYMPH % 21.8 % (24.0-44.0); MEAN CORPUSCULAR HEMOGLOBIN 25.9 pg (27.0-33.0); MEAN CORPUSCULAR HGB CONC 31.2 g/dl (32.0-36.5); MEAN CORPUSCULAR VOLUME 83.1 fl (80.0-96.0); MONO # 0.4 10^3/uL (0.0-0.8); MONO % 7.7 % (2.0-8.0); NEUTROPHILS # 3.5 10^3/uL (1.5-8.5); NEUTROPHILS % 65.3 % (36.0-66.0); PLATELET COUNT, AUTOMATED 297 10^3/uL (150-450); RED BLOOD COUNT 3.78 10^6/uL (4.00-5.40); WHITE BLOOD COUNT 5.3 10^3/uL (4.0-10.0)
[2021-06-17 10:44] LABS: ALT/SGPT 22 U/L (12-78); BILIRUBIN,DIRECT < 0.1 MG/DL (0.0-0.2); BILIRUBIN,TOTAL 0.2 MG/DL (0.2-1.0); LIPASE 136 U/L (73-393)
[2021-06-17] MEDS ORDERED: KETOROLAC 30 MG/ML 1ML VIAL IV ONE (11:00)
[2021-06-17] MEDS ORDERED: ISOVUE-370 76% 100ML VIAL As Ordered ONE (11:51)
[2021-06-17 11:53] LABS: FERRITIN 6 NG/ML (8-252); IRON (FE) 15 UG/DL (50-170); PERCENT SATURATION 5.1 % (13.2-45.0); TOTAL IRON BINDING CAPACITY 297 UG/DL (250-450)
[2021-06-17 11:58] LABS: VITAMIN B12 LEVEL 375 PG/ML (247-911)
[2021-06-17 11:59] LABS: FOLATE 9.1 NG/ML (>5.4)
--- NOTE | 2021-06-17 12:38 | REP ---
INDICATION: LLQ pain, h/o hernia repair and gastric bypass COMPARISON: 05/31/2020. TECHNIQUE: CT Scan of the abdomen and pelvis was performed with intravenous administration of 100 cc of Isovue 370, and oral contrast. Sagittal and coronal reconstruction images are performed. FINDINGS: Lung bases: Unremarkable. Liver: Normal Gallbladder: Prior cholecystectomy. Spleen: Normal. Adrenals: Normal. Pancreas: Normal. Kidneys: Normal. Small and large bowel: There is no evidence of bowel wall thickening or inflammation. A few sigmoid diverticula are present. Prior gastric surgery. There is no free air or obstruction. Free fluid: None. Abdominal aorta: No aneurysm or dissection. Adenopathy: None. Appendix: Prior appendectomy. Osseous structures: Unremarkable. Pelvis: No mass. Prior hysterectomy. There is a small umbilical hernia containing soft tissue, unchanged in appearance compared to the prior study. IMPRESSION: No acute pathology. <Electronically signed by Jevon Pardo > 06/17/21 [id number]
[2021-06-17] MEDS ORDERED: FERR324T21 PO (13:21)
[2021-06-17] MEDS ORDERED: COLA100C5 PO (13:21)
[2021-06-17 14:01] VITALS: BP 132/79
== END 2021-06-17 14:04 | disposition home or self-care (01) ==
LOC: M ED 01:13
DX: N83.202 Unspecified ovarian cyst, left side (principal); D50.9 Iron deficiency anemia, unspecified; G43.909 Migraine, unspecified, not intractable, without status migrainosus; F41.9 Anxiety disorder, unspecified; F32.9 Major depressive disorder, single episode, unspecified; Z98.84 Bariatric surgery status; J30.1 Allergic rhinitis due to pollen; Z88.0 Allergy status to penicillin; Z88.2 Allergy status to sulfonamides; Z88.5 Allergy status to narcotic agent
CPT/HCPCS: 74177; 76830; 76856; 80047; 80076; 81001; 82607; 82728; 82746; 83550; 83690; 85025; 93976; 96361; 96374; 99284; J1885; Q9963; Q9967

== ENCOUNTER → 2021-06-20 | Outpatient (CLI) | payer BC ==
[~2021-06-20] MED LIST changes: +BUPR150T5 PO; +COLA100C5 PO; +FERR324T21 PO; +FLUC10TA PO; -MOME50SP; +NASO50SP3; +OXYC1TAB23 PO; +POTA-149 PO; -POTA10TA16 PO
== END ==
LOC: M WHC 08:03
PROVIDERS: ATTEND Obstetrics & Gynecology
DX: Z12.31 Encounter for screening mammogram for malignant neoplasm of breast (principal)

== ENCOUNTER → 2021-08-20 | Outpatient (CLI) | payer BC ==
[~2021-08-20] MED LIST changes: -BUPR150T5 PO; -FLUC10TA PO; +MOME50SP; -NASO50SP3; -OXYC1TAB23 PO; -POTA-149 PO; +POTA10TA16 PO
--- NOTE | 2021-08-21 07:36 | REP ---
INDICATION: LEFT BREAST ADD VIEWS. Left breast mass seen at screening mammogram COMPARISON: Screening mammogram, 06/20/2021. TECHNIQUE: 2D and 3D focal compression spot images of the left breast were performed in the CC and MLO orientations. Targeted left breast ultrasound was performed. FINDINGS: The [place] volumetric breast density pattern is b, there are scattered areas of fibroglandular density.. In the posterior 3rd of the left breast above and lateral to the nipple, in the upper outer quadrant, there is an isodense focal asymmetry. Left breast ultrasound: 1 o'clock, 6 cm deep to the nipple, 7 x 7 x 3 mm, intramammary lymph node. IMPRESSION: BIRADS/ACR : Category 2: Benign finding. This patient's Tyrer-Cuzick lifetime breast cancer risk assessment score is 12.1%. This mammogram was interpreted with the aid of an FDA-approved computer-aided detection system. The patient letter being requested is M2. RECOMMENDATION: Repeat screening mammography recommended 1 year (for women over 40). <Electronically signed by Reymundo Farley > 08/21/21 0726
== END ==
LOC: M WHC 10:21
PROVIDERS: ATTEND Obstetrics & Gynecology
DX: Z12.31 Encounter for screening mammogram for malignant neoplasm of breast (principal)

== ENCOUNTER → 2021-10-02 | Outpatient (CLI) | payer BC ==
[~2021-10-02] MED LIST changes: +BUPR150T5 PO
[2021-10-02 08:54] LABS: HEMATOCRIT 38.2 % (36.0-47.0); HEMOGLOBIN 12.5 g/dl (12.0-15.5); MEAN CORPUSCULAR HEMOGLOBIN 29.8 pg (27.0-33.0); MEAN CORPUSCULAR HGB CONC 32.7 g/dl (32.0-36.5); PLATELET COUNT, AUTOMATED 256 10^3/uL (150-450); WHITE BLOOD COUNT 6.6 10^3/uL (4.0-10.0)
[2021-10-02 09:04] LABS: INR 0.95; PROTHROMBIN TIME 13.1 SECONDS (12.7-14.5)
== END ==
LOC: M LAB 08:23
PROVIDERS: ATTEND Family Medicine
DX: Z01.818 Encounter for other preprocedural examination (principal)

== ENCOUNTER → 2021-10-03 | Outpatient (CLI) | payer BC | LOC: M LABSMTC 09:52 | PROVIDERS: ATTEND Anesthesiology | DX: Z01.818 Encounter for other preprocedural examination (principal); Z11.52 Encounter for screening for COVID-19 ==

== ENCOUNTER → 2021-10-06 | Outpatient (REF) | payer BC ==
[2021-10-06 18:29] LABS: COLLAGEN EPINEPHRINE > 277 SECONDS (74-162)
[2021-10-06 18:42] LABS: COLLAGEN ADP 76 SECONDS (56-103)
== END ==
LOC: M LAB 18:09
PROVIDERS: ATTEND Family Medicine
DX: Z01.818 Encounter for other preprocedural examination (principal); K43.2 Incisional hernia without obstruction or gangrene

== ENCOUNTER 2021-10-08 08:26 | Day surgery (SDC) | payer BC ==
[~2021-10-08] VITALS: Ht 157.5 cm; Wt 64.6 kg
[~2021-10-08 08:26] MED LIST changes: -MOME50SP; +NASO50SP3; +POTA-149 PO; -POTA10TA16 PO
[2021-10-08] MEDS ORDERED: OXYC1TAB23 PO (11:46)
[2021-10-08 13:15] VITALS: BP 116/69
[2021-10-08] MEDS ORDERED: FLUC10TA PO (15:17)
== END 2021-10-08 13:24 | disposition home or self-care (01) ==
LOC: M SDC 08:26
PROVIDERS: ATTEND Surgery
DX: K42.0 Umbilical hernia with obstruction, without gangrene (principal); K43.2 Incisional hernia without obstruction or gangrene; M62.08 Separation of muscle (nontraumatic), other site; D50.9 Iron deficiency anemia, unspecified; K21.9 Gastro-esophageal reflux disease without esophagitis; Z90.710 Acquired absence of both cervix and uterus; Z98.84 Bariatric surgery status; G43.909 Migraine, unspecified, not intractable, without status migrainosus; F41.9 Anxiety disorder, unspecified; F32.9 Major depressive disorder, single episode, unspecified; J30.1 Allergic rhinitis due to pollen; J32.9 Chronic sinusitis, unspecified; Z86.16 Personal history of COVID-19; Z88.5 Allergy status to narcotic agent; Z88.0 Allergy status to penicillin; Z88.2 Allergy status to sulfonamides; Z88.8 Allergy status to other drugs, medicaments and biological substances; Z87.891 Personal history of nicotine dependence; Z79.899 Other long term (current) drug therapy
CPT/HCPCS: 49657; 64486; C1781; C9290; J0131; J1100; J1956; J2250; J2405; J2765; J3010; S2900

== ENCOUNTER → 2021-10-30 | Outpatient (CLI) | payer BC ==
[~2021-10-30] MED LIST changes: +FLUC10TA PO; +OXYC1TAB23 PO
[2021-10-30 11:57] LABS: CLOSTRIDIUM DIFFICILE PCR NEGATIVE (NEGATIVE)
== END ==
LOC: M LAB 10:44
PROVIDERS: ATTEND Surgery
DX: R19.7 Diarrhea, unspecified (principal)

== ENCOUNTER 2022-02-08 18:25 | Emergency (ER) | payer BC ==
[~2022-02-08] VITALS: Ht 157.5 cm; Wt 61.5 kg
[~2022-02-08 18:25] MED LIST changes: +BUPR-71 PO; -BUPR150T5 PO
[2022-02-08] MEDS ORDERED: KETOROLAC 30 MG/ML 1ML VIAL IM ONE (22:10)
[2022-02-08 22:28] VITALS: BP 123/66
== END 2022-02-08 22:29 | disposition home or self-care (01) ==
LOC: M ED 18:25
DX: S93.402A Sprain of unspecified ligament of left ankle, initial encounter (principal); W10.8XXA Fall (on) (from) other stairs and steps, initial encounter; Y92.89 Other specified places as the place of occurrence of the external cause
CPT/HCPCS: 73610; 73630; 96372; 99284; J1885

== ENCOUNTER → 2022-02-14 | Outpatient (CLI) | payer BC ==
[~2022-02-14] MED LIST changes: +AMIT-257 PO; +BUSP15TA47 PO; +CLON0.5T17 PO; +DICY1CAP8 PO; +DOCU-153 PO; +HYDR-3363 PO; +LEXA1TAB2 PO; +MIRA3350 PO; +PANT40TA29 PO; +PRAM0.252 PO; +VALA1TAB5 PO
== END ==
LOC: M LABSMTC 11:15
PROVIDERS: ATTEND Anesthesiology
DX: Z01.818 Encounter for other preprocedural examination (principal); Z11.52 Encounter for screening for COVID-19

== ENCOUNTER 2022-02-19 09:57 | Observation (INO) | payer BC ==
[~2022-02-19] VITALS: Ht 157.5 cm; Wt 58.6 kg
[~2022-02-19 09:57] MED LIST changes: +CLINDAMYCIN 600 MG in IV 1 EA IV ONE
[2022-02-19] MEDS ORDERED: fentaNYL 250 MCG/5 ML INJECTION As Ordered ONE (11:10)
[2022-02-19] MEDS ORDERED: LIDOCAINE 2% 100MG/5ML SDV (FOR ANES.) As Ordered ONE (11:11)
[2022-02-19] MEDS ORDERED: MIDAZOLAM INJ 2MG/2ML VIAL (J2250 PER 1MG) As Ordered ONE (11:11)
[2022-02-19] MEDS ORDERED: propofoL 200 MG/20 ML VIAL As Ordered ONE (11:11)
[2022-02-19] MEDS ORDERED: ROCURONIUM BROMIDE 50 MG/5 ML VIAL As Ordered ONE ×2 (11:12→13:02)
[2022-02-19] MEDS ORDERED: dexameTHASONE 4 MG/ML 1ML VIAL (J1100 PER 1MG) As Ordered ONE (11:13)
[2022-02-19] MEDS ORDERED: GENTAMICIN SULF 80MG/2ML VIAL As Ordered ONE (11:29)
[2022-02-19] MEDS ORDERED: BUPIVACAINE HCL 0.25% 10ML VIAL As Ordered ONE (11:29)
[2022-02-19] MEDS ORDERED: BUPIVACAINE LIPOSOME/PF 1.3% 20ML VIAL (13.3MG/ML)(EXPAREL) As Ordered ONE (11:30)
[2022-02-19] MEDS ORDERED: ACETAMINOPHEN 1000MG 100ML IV BTL (OFIRMEV) (J0131 PER 10MG) As Ordered ONE (12:13)
[2022-02-19] MEDS ORDERED: PHENYLephrine 500MCG 5ML (100MCG/ML) SYRINGE As Ordered ONE ×2 (12:13→12:38)
[2022-02-19] MEDS ORDERED: ePHEDrine SULFATE 25 MG/5 ML(5MG/ML) SYRINGE As Ordered ONE (13:15)
[2022-02-19] MEDS ORDERED: METOCLOPRAMIDE INJ 10MG/2ML VIAL (J2765 PER 1) As Ordered ONE (13:32)
[2022-02-19] MEDS ORDERED: diphenhydrAMINE 50MG/ML VIAL (J1200) As Ordered ONE (13:32)
[2022-02-19] MEDS ORDERED: HYDROmorphone HCL 2MG/ML 1ML VIAL As Ordered ONE (13:47)
[2022-02-19] MEDS ORDERED: SUGAMMADEX SODIUM 500 MG/5 ML VIAL (BRIDION) As Ordered ONE (14:26)
[2022-02-19] MEDS ORDERED: ONDANSETRON 4MG/2ML VIAL As Ordered ONE (14:26)
[2022-02-19] MEDS ORDERED: ONDANSETRON 4MG/2ML VIAL IV PRN ×2 (15:20→16:20)
[2022-02-19] MEDS: LR 1,000 ML IV SCH (15:20)
[2022-02-19] MEDS ORDERED: ACETAMINOPHEN TAB 650MG DOSE (2X325MG) PO PRN (15:20)
[2022-02-19] MEDS ORDERED: LR 1,000 ML IV SCH (16:20)
[2022-02-19] MEDS ORDERED: oxyCODONE 5MG TAB PO PRN (16:20)
[2022-02-19] MEDS ORDERED: fentaNYL 100 MCG/2 ML INJECTION IV PRN (16:20)
[2022-02-19] MEDS ORDERED: HYDROMORPHONE HCL 0.5 MG/ 0.5 ML SYRINGE (J1170 PER 1) IV PRN (16:20)
[2022-02-19 17:30] VITALS: BP 95/62
[2022-02-19 18:00] VITALS: BP 91/59
[2022-02-19] MEDS ORDERED: CLINDAMYCIN 600 MG in IV 1 EA IV ONE (18:00)
[2022-02-19 18:30] VITALS: BP 92/59
[2022-02-19] MEDS: traMADol 50 MG TAB PO PRN ×2 (18:35→22:36)
[2022-02-19 19:50] VITALS: BP 91/59
[2022-02-19 20:37] VITALS: BP 94/60
[2022-02-19 21:54] VITALS: BP 116/71
[2022-02-19] MEDS ORDERED: PROCHLORPERAZINE 10MG/2ML VIAL (J0780 PER 1) IV ONE (22:15)
[2022-02-19] MEDS ORDERED: diphenhydrAMINE 50MG/ML VIAL (J1200) IV ONE (22:15)
[2022-02-20 01:17] VITALS: BP 94/63
[2022-02-20] MEDS: traMADol 50 MG TAB PO PRN (06:19)
[2022-02-20] MEDS: LR 1,000 ML IV SCH (06:19)
[2022-02-20 06:40] VITALS: BP 96/63
[2022-02-20] MEDS ORDERED: RIZATRIPTAN MLT 10 MG TAB PO PRN (08:20)
[2022-02-20] MEDS ORDERED: PERCOCET 5MG/325MG TAB PO PRN (08:20)
[2022-02-20 10:00] VITALS: BP 101/64
[2022-02-20] MEDS ORDERED: PERCOCET PO (10:03)
== END 2022-02-20 14:00 | disposition home or self-care (01) ==
LOC: M SDC 09:57 → M MS5PR 09:58 → M SDC 02-20 14:00
PROVIDERS: ADMIT Plastic Surgery Surgery of the Hand; ATTEND Plastic Surgery Surgery of the Hand
DX: M79.3 Panniculitis, unspecified (principal); R19.09 Other intra-abdominal and pelvic swelling, mass and lump; G43.909 Migraine, unspecified, not intractable, without status migrainosus; K21.9 Gastro-esophageal reflux disease without esophagitis; Z98.84 Bariatric surgery status; J30.1 Allergic rhinitis due to pollen; Z88.0 Allergy status to penicillin; Z88.5 Allergy status to narcotic agent; Z88.2 Allergy status to sulfonamides
CPT/HCPCS: 15830; 15847; 88300; 88305; 88342; 96374; 96375; C9290; J0131; J0780; J1100; J1170; J1200; J1580; J2250; J2370; J2405; J2765; J3010

== ENCOUNTER 2022-02-26 21:35 | Emergency (ER) | payer BC ==
[~2022-02-26] VITALS: Ht 157.5 cm; Wt 65.9 kg
[~2022-02-26 21:35] MED LIST changes: -CLINDAMYCIN 600 MG in IV 1 EA IV ONE
[2022-02-27] MEDS ORDERED: PERCOCET 5MG/325MG TAB PO ONE (00:05)
[2022-02-27 00:25] LABS: BASO % 0.6 % (0.0-1.0); EOS # 0.2 10^3/uL (0.0-0.5); EOS % 3.7 % (0.0-3.0); HEMATOCRIT 30.1 % (36.0-47.0); HEMOGLOBIN 9.6 g/dl (12.0-15.5); LYMPH # 1.9 10^3/uL (1.5-5.0); LYMPH % 30.1 % (24.0-44.0); MEAN CORPUSCULAR HEMOGLOBIN 29.9 pg (27.0-33.0); MEAN CORPUSCULAR HGB CONC 31.9 g/dl (32.0-36.5); MEAN CORPUSCULAR VOLUME 93.8 fl (80.0-96.0); MONO # 0.5 10^3/uL (0.0-0.8); MONO % 8.3 % (2.0-8.0); NEUTROPHILS # 3.6 10^3/uL (1.5-8.5); NEUTROPHILS % 56.8 % (36.0-66.0); PLATELET COUNT, AUTOMATED 325 10^3/uL (150-450); RED BLOOD COUNT 3.21 10^6/uL (4.00-5.40); WHITE BLOOD COUNT 6.4 10^3/uL (4.0-10.0)
[2022-02-27 00:38] LABS: ALBUMIN 2.3 GM/DL (3.2-5.2); ALT/SGPT 9 U/L (12-78); BILIRUBIN,DIRECT < 0.1 MG/DL (0.0-0.2); BILIRUBIN,TOTAL 0.2 MG/DL (0.2-1.0); BLOOD UREA NITROGEN 17 MG/DL (7-18); CALCIUM LEVEL 7.8 MG/DL (8.5-10.1); CARBON DIOXIDE LEVEL 25 MEQ/L (21-32); CHLORIDE LEVEL 113 MEQ/L (98-107); CREATININE FOR GFR 0.64 MG/DL (0.55-1.30); GLOMERULAR FILTRATION RATE > 60.0 (>58); GLUCOSE, FASTING 82 MG/DL (70-100); POTASSIUM SERUM 3.6 MEQ/L (3.5-5.1); SODIUM LEVEL 142 MEQ/L (136-145); TOTAL PROTEIN 4.8 GM/DL (6.4-8.2)
[2022-02-27] MEDS ORDERED: ISOVUE-370 76% 100ML VIAL As Ordered ONE (01:03)
[2022-02-27 01:49] VITALS: BP 108/63
[2022-02-27] MEDS ORDERED: SUMA100T2 PO (18:26)
[2022-02-27] MEDS ORDERED: CLON0.5T2 PO (18:26)
[2022-02-27] MEDS ORDERED: LEXA1TAB2 PO (18:26)
== END 2022-02-27 02:05 | disposition home or self-care (01) ==
LOC: M ED 21:35
DX: L76.32 Postprocedural hematoma of skin and subcutaneous tissue following other procedure (principal); G43.909 Migraine, unspecified, not intractable, without status migrainosus; Z86.16 Personal history of COVID-19; F32.A Depression, unspecified; F41.9 Anxiety disorder, unspecified; Z98.84 Bariatric surgery status; Z88.0 Allergy status to penicillin; Z88.2 Allergy status to sulfonamides; Z88.6 Allergy status to analgesic agent; Z79.899 Other long term (current) drug therapy
CPT/HCPCS: 36415; 74177; 80048; 80076; 85025; 93970; 99283; Q9967

== ENCOUNTER 2022-02-27 13:39 | Inpatient (IN) | payer BC ==
[~2022-02-27] VITALS: Ht 157.5 cm; Wt 67.1 kg
[2022-02-27] MEDS ORDERED: fentaNYL 100 MCG/2 ML INJECTION IV ONE (16:10)
[2022-02-27] MEDS ORDERED: FUROSEMIDE 20MG/2ML VIAL (J1940) IV ONE (16:55)
[2022-02-27] MEDS ORDERED: SUMA100T2 PO (18:26)
[2022-02-27] MEDS ORDERED: LEXA1TAB2 PO (18:26)
[2022-02-27] MEDS ORDERED: CLON0.5T2 PO (18:26)
[2022-02-27] MEDS ORDERED: HOME MED LIST COMPLETE! XX SCH (18:30)
[2022-02-27 19:46] LABS: RSV AMPLIFICATION NEGATIVE (NEGATIVE)
[2022-02-27] MEDS: NORCO, ANEXSIA 5/325MG TABLET (HYDROcodone/ACETAMINOPHEN) PO PRN (20:53)
[2022-02-27] MEDS ORDERED: ONDANSETRON 4MG/2ML VIAL IV ONE (21:00)
[2022-02-27] MEDS: PRAMIPEXOLE 0.25 MG TAB PO SCH (21:00)
[2022-02-27 22:25] VITALS: BP 116/83
[2022-02-27] MEDS ORDERED: KETOROLAC 30 MG/ML 1ML VIAL IV ONE (22:50)
[2022-02-28] MEDS ORDERED: ONDANSETRON 4MG ORAL DISINTEGRATING TAB PO PRN (01:30)
[2022-02-28] MEDS ORDERED: MIRALAX *UNIT DOSE* 17GM PACKET PO PRN (01:30)
[2022-02-28] MEDS ORDERED: DOCUSATE SODIUM 100MG CAPSULE PO PRN (01:30)
[2022-02-28] MEDS ORDERED: CETIRIZINE (ZyrTEC) 10 MG TAB PO PRN (01:30)
[2022-02-28] MEDS ORDERED: zolPIDEM TARTRATE 5 MG TAB PO PRN (01:30)
[2022-02-28] MEDS ORDERED: PANTOPRAZOLE 40MG TAB (PROTONIX) PO PRN (01:30)
[2022-02-28] MEDS: MONTELUKAST 10 MG TAB PO SCH ×2 (02:28→20:15)
[2022-02-28] MEDS: AMITRIPTYLINE 50 MG TAB PO SCH ×2 (02:29→20:15)
[2022-02-28] MEDS: ACETAMINOPHEN TAB 650MG DOSE (2X325MG) PO PRN ×2 (02:30→17:07)
[2022-02-28] MEDS: SUMAtriptan SUCCINATE 25 MG TAB PO PRN ×2 (05:54→18:16)
[2022-02-28 06:00] VITALS: BP 109/72
[2022-02-28 06:12] LABS: HEMATOCRIT 29.4 % (36.0-47.0); HEMOGLOBIN 9.4 g/dl (12.0-15.5); MEAN CORPUSCULAR HEMOGLOBIN 29.8 pg (27.0-33.0); MEAN CORPUSCULAR VOLUME 93.3 fl (80.0-96.0); PLATELET COUNT, AUTOMATED 298 10^3/uL (150-450); RED BLOOD COUNT 3.15 10^6/uL (4.00-5.40); WHITE BLOOD COUNT 5.5 10^3/uL (4.0-10.0)
[2022-02-28 06:40] LABS: BLOOD UREA NITROGEN 12 MG/DL (7-18); CALCIUM LEVEL 8.2 MG/DL (8.5-10.1); CARBON DIOXIDE LEVEL 26 MEQ/L (21-32); CHLORIDE LEVEL 112 MEQ/L (98-107); CREATININE FOR GFR 0.51 MG/DL (0.55-1.30); GLOMERULAR FILTRATION RATE > 60.0 (>58); GLUCOSE, FASTING 87 MG/DL (70-100); MAGNESIUM LEVEL 1.9 MG/DL (1.8-2.4); POTASSIUM SERUM 3.9 MEQ/L (3.5-5.1); SODIUM LEVEL 141 MEQ/L (136-145)
[2022-02-28] MEDS: buPROPion **SR TABLET** (ZYBAN) 150MG PO SCH ×2 (08:28→20:14)
[2022-02-28] MEDS: busPIRone 5 MG TAB PO SCH ×2 (08:29→20:15)
[2022-02-28] MEDS: TOPIRAMATE (TopAMAX) 100 MG TAB PO SCH ×2 (08:29→20:15)
[2022-02-28] MEDS: clonazePAM 0.5 MG TAB PO PRN ×2 (08:31→21:11)
[2022-02-28] MEDS: ESCITALOPRAM OXALATE 10 MG TAB (LEXAPRO) PO SCH (08:33)
[2022-02-28] MEDS: NORCO, ANEXSIA 5/325MG TABLET (HYDROcodone/ACETAMINOPHEN) PO PRN ×3 (08:33→21:11)
[2022-02-28] MEDS ORDERED: FUROSEMIDE 20 MG TAB PO ONE (09:35)
[2022-02-28] MEDS ORDERED: FUROSEMIDE 20MG/2ML VIAL (J1940) IV ONE (11:45)
[2022-02-28 14:00] VITALS: BP 111/76
[2022-02-28] MEDS ORDERED: INFLUENZA QUADRIVALENT PF VACCINE 0.5ML SYRINGE IM ONE (17:00)
[2022-02-28] MEDS: hydrOXYzine 25 MG TAB PO PRN (17:07)
[2022-02-28] MEDS: PRAMIPEXOLE 0.25 MG TAB PO SCH (20:14)
[2022-02-28 22:00] VITALS: BP 114/81
[2022-03-01 06:00] VITALS: BP 114/74
[2022-03-01 07:16] LABS: HEMATOCRIT 30.2 % (36.0-47.0); HEMOGLOBIN 9.5 g/dl (12.0-15.5); MEAN CORPUSCULAR HEMOGLOBIN 29.5 pg (27.0-33.0); MEAN CORPUSCULAR HGB CONC 31.5 g/dl (32.0-36.5); MEAN CORPUSCULAR VOLUME 93.8 fl (80.0-96.0); PLATELET COUNT, AUTOMATED 317 10^3/uL (150-450); RED BLOOD COUNT 3.22 10^6/uL (4.00-5.40); WHITE BLOOD COUNT 6.2 10^3/uL (4.0-10.0)
[2022-03-01 07:50] LABS: ALBUMIN 2.3 GM/DL (3.2-5.2); BLOOD UREA NITROGEN 13 MG/DL (7-18); CALCIUM LEVEL 8.2 MG/DL (8.5-10.1); CARBON DIOXIDE LEVEL 26 MEQ/L (21-32); CHLORIDE LEVEL 112 MEQ/L (98-107); GLOMERULAR FILTRATION RATE > 60.0 (>58); GLUCOSE, FASTING 82 MG/DL (70-100); POTASSIUM SERUM 3.9 MEQ/L (3.5-5.1); PREALBUMIN 21.1 MG/DL (20.0-40.0); SODIUM LEVEL 142 MEQ/L (136-145)
[2022-03-01] MEDS: buPROPion **SR TABLET** (ZYBAN) 150MG PO SCH ×2 (08:42→20:43)
[2022-03-01] MEDS: busPIRone 5 MG TAB PO SCH ×2 (08:42→20:43)
[2022-03-01] MEDS: ESCITALOPRAM OXALATE 10 MG TAB (LEXAPRO) PO SCH (08:42)
[2022-03-01] MEDS: TOPIRAMATE (TopAMAX) 100 MG TAB PO SCH ×2 (08:42→20:44)
[2022-03-01] MEDS ORDERED: FUROSEMIDE 20MG/2ML VIAL (J1940) IV ONE (09:30)
[2022-03-01] MEDS: clonazePAM 0.5 MG TAB PO PRN ×2 (10:05→20:42)
[2022-03-01] MEDS: NORCO, ANEXSIA 5/325MG TABLET (HYDROcodone/ACETAMINOPHEN) PO PRN ×3 (10:06→23:27)
[2022-03-01] MEDS: SUMAtriptan SUCCINATE 25 MG TAB PO PRN ×2 (11:12→23:39)
[2022-03-01 14:00] VITALS: BP 114/73
[2022-03-01] MEDS: hydrOXYzine 25 MG TAB PO PRN (15:27)
[2022-03-01] MEDS: ACETAMINOPHEN TAB 650MG DOSE (2X325MG) PO PRN ×2 (15:27→20:45)
[2022-03-01] MEDS: MONTELUKAST 10 MG TAB PO SCH (20:43)
[2022-03-01] MEDS: PRAMIPEXOLE 0.25 MG TAB PO SCH (20:43)
[2022-03-01] MEDS: AMITRIPTYLINE 50 MG TAB PO SCH (20:43)
[2022-03-01 22:00] VITALS: BP 118/74
[2022-03-02 06:00] VITALS: BP 120/81
[2022-03-02 06:27] LABS: HEMATOCRIT 32.2 % (36.0-47.0); HEMOGLOBIN 9.9 g/dl (12.0-15.5); MEAN CORPUSCULAR HEMOGLOBIN 29.4 pg (27.0-33.0); MEAN CORPUSCULAR HGB CONC 30.7 g/dl (32.0-36.5); MEAN CORPUSCULAR VOLUME 95.5 fl (80.0-96.0); PLATELET COUNT, AUTOMATED 339 10^3/uL (150-450); RED BLOOD COUNT 3.37 10^6/uL (4.00-5.40); WHITE BLOOD COUNT 8.2 10^3/uL (4.0-10.0)
[2022-03-02 06:54] LABS: ALBUMIN 2.5 GM/DL (3.2-5.2); BLOOD UREA NITROGEN 16 MG/DL (7-18); CALCIUM LEVEL 8.3 MG/DL (8.5-10.1); CARBON DIOXIDE LEVEL 27 MEQ/L (21-32); CHLORIDE LEVEL 109 MEQ/L (98-107); CREATININE FOR GFR 0.56 MG/DL (0.55-1.30); GLOMERULAR FILTRATION RATE > 60.0 (>58); GLUCOSE, FASTING 82 MG/DL (70-100); MAGNESIUM LEVEL 2.1 MG/DL (1.8-2.4); POTASSIUM SERUM 4.1 MEQ/L (3.5-5.1); SODIUM LEVEL 141 MEQ/L (136-145)
[2022-03-02] MEDS: clonazePAM 0.5 MG TAB PO PRN (08:13)
[2022-03-02] MEDS: ESCITALOPRAM OXALATE 10 MG TAB (LEXAPRO) PO SCH (08:14)
[2022-03-02] MEDS: buPROPion **SR TABLET** (ZYBAN) 150MG PO SCH (08:14)
[2022-03-02] MEDS: busPIRone 5 MG TAB PO SCH (08:14)
[2022-03-02] MEDS: TOPIRAMATE (TopAMAX) 100 MG TAB PO SCH (08:14)
[2022-03-02] MEDS: NORCO, ANEXSIA 5/325MG TABLET (HYDROcodone/ACETAMINOPHEN) PO PRN (08:15)
[2022-03-02] MEDS ORDERED: PERCOCET PO (08:59)
[2022-03-02] MEDS ORDERED: FURO20TA2 PO (08:59)
[2022-03-02] MEDS ORDERED: FUROSEMIDE 20 MG TAB PO SCH (09:00)
== END 2022-03-02 10:40 | disposition home or self-care (01) | DRG 425 ==
LOC: M ED 13:39 → M ED INP 16:54 → M MS5PR 22:19
PROVIDERS: ADMIT Family Medicine; ATTEND Family Medicine
DX: E87.70 Fluid overload, unspecified (principal); E88.09 Other disorders of plasma-protein metabolism, not elsewhere classified; F32.A Depression, unspecified; F41.9 Anxiety disorder, unspecified; G43.909 Migraine, unspecified, not intractable, without status migrainosus; J30.9 Allergic rhinitis, unspecified; R60.0 Localized edema; Z98.890 Other specified postprocedural states; Z79.899 Other long term (current) drug therapy; Z88.0 Allergy status to penicillin; Z88.2 Allergy status to sulfonamides; Z88.5 Allergy status to narcotic agent

== ENCOUNTER → 2022-03-10 | Outpatient (CLI) | payer BC ==
[~2022-03-10] MED LIST changes: +CLON0.5T2 PO; +FURO20TA2 PO; +SUMA100T2 PO
== END ==
LOC: M LAB 11:40
PROVIDERS: ATTEND Plastic Surgery Surgery of the Hand
DX: M54.07 Panniculitis affecting regions of neck and back, lumbosacral region (principal)

== ENCOUNTER → 2022-03-27 | Outpatient (CLI) | payer BC ==
[~2022-03-27] MED LIST changes: +HYDR1CAP25 PO; +POTA-136 PO; +RIZA10TA58 SL
[2022-03-27 13:36] LABS: HEMOGLOBIN 13.4 g/dl (12.0-15.5); MEAN CORPUSCULAR HEMOGLOBIN 29.3 pg (27.0-33.0); MEAN CORPUSCULAR HGB CONC 34.4 g/dl (32.0-36.5); MEAN CORPUSCULAR VOLUME 85.3 fl (80.0-96.0); PLATELET COUNT, AUTOMATED 357 10^3/uL (150-450); RED BLOOD COUNT 4.57 10^6/uL (4.00-5.40); WHITE BLOOD COUNT 5.9 10^3/uL (4.0-10.0)
[2022-03-27 14:24] LABS: ALBUMIN 3.4 GM/DL (3.2-5.2); ALT/SGPT 24 U/L (12-78); BILIRUBIN,TOTAL 0.2 MG/DL (0.2-1.0); BLOOD UREA NITROGEN 16 MG/DL (7-18); CARBON DIOXIDE LEVEL 38 MEQ/L (21-32); CHLORIDE LEVEL 82 MEQ/L (98-107); CREATININE FOR GFR 0.86 MG/DL (0.55-1.30); GLOMERULAR FILTRATION RATE > 60.0 (>58); GLUCOSE, FASTING 81 MG/DL (70-100); MAGNESIUM LEVEL 2.2 MG/DL (1.8-2.4); POTASSIUM SERUM 2.4 MEQ/L (3.5-5.1); SODIUM LEVEL 130 MEQ/L (136-145); TOTAL PROTEIN 6.9 GM/DL (6.4-8.2)
== END ==
LOC: M PLALAB 10:14
PROVIDERS: ATTEND Family Medicine
DX: E88.09 Other disorders of plasma-protein metabolism, not elsewhere classified (principal)

== ENCOUNTER 2022-03-29 19:26 | Inpatient (IN) | payer BC ==
[~2022-03-29] VITALS: Ht 157.5 cm; Wt 56.1 kg
[~2022-03-29 19:26] MED LIST changes: -HYDR1CAP25 PO; -POTA-136 PO; -RIZA10TA58 SL
[2022-03-29 20:02] LABS: BASO # 0.1 10^3/uL (0.0-0.2); BASO % 0.6 % (0.0-1.0); EOS # 0.2 10^3/uL (0.0-0.5); EOS % 2.2 % (0.0-3.0); HEMOGLOBIN 13.5 g/dl (12.0-15.5); LYMPH # 1.9 10^3/uL (1.5-5.0); LYMPH % 20.9 % (24.0-44.0); MEAN CORPUSCULAR HEMOGLOBIN 29.9 pg (27.0-33.0); MEAN CORPUSCULAR HGB CONC 36.5 g/dl (32.0-36.5); MONO # 0.6 10^3/uL (0.0-0.8); MONO % 7.2 % (2.0-8.0); NEUTROPHILS # 6.1 10^3/uL (1.5-8.5); NEUTROPHILS % 68.8 % (36.0-66.0); PLATELET COUNT, AUTOMATED 335 10^3/uL (150-450); RED BLOOD COUNT 4.51 10^6/uL (4.00-5.40); WHITE BLOOD COUNT 8.9 10^3/uL (4.0-10.0)
[2022-03-29 20:13] LABS: INR 0.93; PROTHROMBIN TIME 12.9 SECONDS (12.7-14.5)
[2022-03-29 20:21] LABS: HCG, SERUM QUALITATIVE NEGATIVE (NEGATIVE)
[2022-03-29 20:24] LABS: CK-MB VALUE MASS 2.3 NG/ML (<3.6); MB/CK RELATIVE INDEX 1.54 (< OR =4)
[2022-03-29 20:34] LABS: AMPHETAMINES LEVEL URINE NEGATIVE (NEGATIVE); BARBITURATES URINE NEGATIVE (NEGATIVE); BENZODIAZEPINES URINE NEGATIVE (NEGATIVE); CANNABINOIDS URINE NEGATIVE (NEGATIVE); COCAINE METABOLITE URINE NEGATIVE (NEGATIVE); METHADONE URINE NEGATIVE (NEGATIVE); OPIATES URINE NEGATIVE (NEGATIVE); PHENCYCLIDINE URINE NEGATIVE (NEGATIVE)
[2022-03-29 20:39] LABS: BLOOD UREA NITROGEN 19 MG/DL (7-18); CALCIUM LEVEL 9.4 MG/DL (8.5-10.1); CARBON DIOXIDE LEVEL 37 MEQ/L (21-32); CHLORIDE LEVEL 79 MEQ/L (98-107); CREATININE FOR GFR 1.05 MG/DL (0.55-1.30); FREE T4 1.56 NG/DL (0.76-1.46); GLOMERULAR FILTRATION RATE > 60.0 (>58); GLUCOSE, FASTING 125 MG/DL (70-100); MAGNESIUM LEVEL 2.2 MG/DL (1.8-2.4); POTASSIUM SERUM 1.8 MEQ/L (3.5-5.1); SODIUM LEVEL 126 MEQ/L (136-145); THYROID STIMULATING HORMONE 0.776 uIU/ML (0.358-3.740)
[2022-03-29] MEDS ORDERED: KCL 10MEQ/100ML SWI (KRUN) 10 MEQ in IV 1 EA IV ONE (20:40)
[2022-03-29] MEDS ORDERED: METOCLOPRAMIDE INJ 10MG/2ML VIAL (J2765 PER 1) IV ONE (20:40)
[2022-03-29] MEDS ORDERED: POTASSIUM CHLORIDE 10MEQ SR TABLET PO ONE (20:40)
[2022-03-29] MEDS ORDERED: KETOROLAC 30 MG/ML 1ML VIAL IV ONE (22:05)
[2022-03-29] MEDS ORDERED: HYDR1CAP25 PO (22:35)
[2022-03-29] MEDS ORDERED: RIZA10TA58 SL (22:35)
[2022-03-29] MEDS ORDERED: HOME MED LIST COMPLETE! XX SCH (22:35)
[2022-03-29] MEDS ORDERED: ACETAMINOPHEN TAB 650MG DOSE (2X325MG) PO PRN (23:00)
[2022-03-29] MEDS ORDERED: MAALOX 30 ML SUSP *UDC PO PRN (23:00)
[2022-03-29] MEDS ORDERED: MOM 30ML SUSPENSION UDC PO PRN (23:00)
[2022-03-29] MEDS ORDERED: PANTOPRAZOLE 40MG TAB (PROTONIX) PO PRN (23:25)
[2022-03-29] MEDS ORDERED: RIZATRIPTAN MLT 10 MG TAB SL PRN (23:25)
[2022-03-29] MEDS ORDERED: SUMAtriptan SUCCINATE 25 MG TAB PO PRN (23:25)
[2022-03-30 00:16] LABS: RSV AMPLIFICATION NEGATIVE (NEGATIVE)
[2022-03-30 00:35] LABS: BLOOD UREA NITROGEN 18 MG/DL (7-18); CALCIUM LEVEL 8.8 MG/DL (8.5-10.1); CARBON DIOXIDE LEVEL 32 MEQ/L (21-32); CHLORIDE LEVEL 80 MEQ/L (98-107); GLOMERULAR FILTRATION RATE > 60.0 (>58); GLUCOSE, FASTING 90 MG/DL (70-100); SODIUM LEVEL 124 MEQ/L (136-145)
[2022-03-30] MEDS: KCL 10MEQ/100ML SWI (KRUN) 10 MEQ in IV 1 EA IV SCH ×6 (00:38→11:44)
[2022-03-30] MEDS: POTASSIUM CHLORIDE 10MEQ SR TABLET PO SCH ×6 (00:38→20:40)
[2022-03-30] MEDS ORDERED: NS 500 ML IV ONE (01:35)
[2022-03-30] MEDS ORDERED: POTASSIUM CHLORIDE INJ 10 MEQ in NS 1,000 ML IV SCH (02:00)
[2022-03-30 03:23] VITALS: BP 80/48
[2022-03-30 03:48] LABS: BASO % 0.6 % (0.0-1.0); EOS # 0.3 10^3/uL (0.0-0.5); EOS % 4.4 % (0.0-3.0); HEMATOCRIT 31.1 % (36.0-47.0); LYMPH % 31.2 % (24.0-44.0); MEAN CORPUSCULAR HEMOGLOBIN 30.1 pg (27.0-33.0); MEAN CORPUSCULAR HGB CONC 35.7 g/dl (32.0-36.5); MEAN CORPUSCULAR VOLUME 84.3 fl (80.0-96.0); MONO # 0.6 10^3/uL (0.0-0.8); NEUTROPHILS # 3.5 10^3/uL (1.5-8.5); NEUTROPHILS % 54.5 % (36.0-66.0); PLATELET COUNT, AUTOMATED 274 10^3/uL (150-450); RED BLOOD COUNT 3.69 10^6/uL (4.00-5.40); WHITE BLOOD COUNT 6.4 10^3/uL (4.0-10.0)
[2022-03-30 03:59] LABS: HEMOGLOBIN 11.1 g/dl (12.0-15.5)
[2022-03-30 04:10] LABS: BLOOD UREA NITROGEN 18 MG/DL (7-18); CALCIUM LEVEL 8.1 MG/DL (8.5-10.1); CARBON DIOXIDE LEVEL 33 MEQ/L (21-32); CHLORIDE LEVEL 86 MEQ/L (98-107); CREATININE FOR GFR 0.94 MG/DL (0.55-1.30); GLOMERULAR FILTRATION RATE > 60.0 (>58); GLUCOSE, FASTING 87 MG/DL (70-100); POTASSIUM SERUM 2.2 MEQ/L (3.5-5.1); SODIUM LEVEL 130 MEQ/L (136-145)
[2022-03-30 04:27] VITALS: BP 102/68
[2022-03-30] MEDS: HEPARIN SOD (PORCINE) 5000UNITS/ML 1ML VIAL/SYRINGE SC SCH ×3 (05:33→21:19)
[2022-03-30] MEDS ORDERED: POTASSIUM CHLORIDE 10MEQ SR TABLET PO ONE ×2 (06:00→13:35)
[2022-03-30 08:00] VITALS: BP 96/54
[2022-03-30] MEDS: ESCITALOPRAM OXALATE 10 MG TAB (LEXAPRO) PO SCH (08:02)
[2022-03-30] MEDS: busPIRone 5 MG TAB PO SCH ×2 (08:02→20:39)
[2022-03-30] MEDS: TOPIRAMATE (TopAMAX) 100 MG TAB PO SCH ×2 (08:02→20:41)
[2022-03-30] MEDS: buPROPion **SR TABLET** (ZYBAN) 150MG PO SCH ×2 (08:02→20:41)
[2022-03-30 08:47] LABS: BLOOD UREA NITROGEN 15 MG/DL (7-18); CALCIUM LEVEL 8.8 MG/DL (8.5-10.1); CARBON DIOXIDE LEVEL 31 MEQ/L (21-32); CHLORIDE LEVEL 89 MEQ/L (98-107); CREATININE FOR GFR 0.78 MG/DL (0.55-1.30); GLOMERULAR FILTRATION RATE > 60.0 (>58); GLUCOSE, FASTING 80 MG/DL (70-100); POTASSIUM SERUM 2.5 MEQ/L (3.5-5.1); SODIUM LEVEL 130 MEQ/L (136-145)
[2022-03-30] MEDS ORDERED: ONDANSETRON 4MG 2ML VIAL IV PRN (13:40)
[2022-03-30 14:33] LABS: BLOOD UREA NITROGEN 14 MG/DL (7-18); CALCIUM LEVEL 9.6 MG/DL (8.5-10.1); CARBON DIOXIDE LEVEL 31 MEQ/L (21-32); CHLORIDE LEVEL 98 MEQ/L (98-107); CREATININE FOR GFR 1.03 MG/DL (0.55-1.30); GLOMERULAR FILTRATION RATE > 60.0 (>58); GLUCOSE, FASTING 152 MG/DL (70-100); POTASSIUM SERUM 2.6 MEQ/L (3.5-5.1); SODIUM LEVEL 137 MEQ/L (136-145)
[2022-03-30 19:40] VITALS: BP 86/54
[2022-03-30 20:15] VITALS: BP 92/58
[2022-03-30] MEDS: MONTELUKAST 10 MG TAB PO SCH (20:38)
[2022-03-30] MEDS: AMITRIPTYLINE 50 MG TAB PO SCH (20:41)
[2022-03-30] MEDS: PRAMIPEXOLE 0.25 MG TAB PO SCH (20:41)
[2022-03-30 20:50] LABS: BLOOD UREA NITROGEN 18 MG/DL (7-18); CALCIUM LEVEL 8.8 MG/DL (8.5-10.1); CARBON DIOXIDE LEVEL 33 MEQ/L (21-32); CHLORIDE LEVEL 99 MEQ/L (98-107); CREATININE FOR GFR 0.94 MG/DL (0.55-1.30); GLOMERULAR FILTRATION RATE > 60.0 (>58); GLUCOSE, FASTING 117 MG/DL (70-100); POTASSIUM SERUM 2.8 MEQ/L (3.5-5.1); SODIUM LEVEL 136 MEQ/L (136-145)
[2022-03-30 23:45] VITALS: BP 95/54
[2022-03-31] VITALS (9 sets, daily range): BP systolic 78–114; BP diastolic 50–64
[2022-03-31 02:01] LABS: BLOOD UREA NITROGEN 19 MG/DL (7-18); CARBON DIOXIDE LEVEL 33 MEQ/L (21-32); CHLORIDE LEVEL 101 MEQ/L (98-107); GLOMERULAR FILTRATION RATE > 60.0 (>58); GLUCOSE, FASTING 104 MG/DL (70-100); SODIUM LEVEL 140 MEQ/L (136-145)
[2022-03-31 02:02] LABS: POTASSIUM SERUM 2.7 MEQ/L (3.5-5.1)
[2022-03-31] MEDS ORDERED: POTASSIUM CHLORIDE 10MEQ SR TABLET PO ONE ×3 (03:00→19:20)
[2022-03-31] MEDS: HEPARIN SOD (PORCINE) 5000UNITS/ML 1ML VIAL/SYRINGE SC SCH ×3 (05:46→21:54)
[2022-03-31 06:41] LABS: BASO # 0.1 10^3/uL (0.0-0.2); BASO % 0.9 % (0.0-1.0); EOS # 0.4 10^3/uL (0.0-0.5); EOS % 6.3 % (0.0-3.0); HEMOGLOBIN 11.5 g/dl (12.0-15.5); LYMPH # 1.8 10^3/uL (1.5-5.0); LYMPH % 32.5 % (24.0-44.0); MEAN CORPUSCULAR HEMOGLOBIN 29.9 pg (27.0-33.0); MEAN CORPUSCULAR HGB CONC 33.8 g/dl (32.0-36.5); MEAN CORPUSCULAR VOLUME 88.5 fl (80.0-96.0); MONO # 0.5 10^3/uL (0.0-0.8); MONO % 9.2 % (2.0-8.0); NEUTROPHILS # 2.9 10^3/uL (1.5-8.5); NEUTROPHILS % 50.9 % (36.0-66.0); PLATELET COUNT, AUTOMATED 273 10^3/uL (150-450); RED BLOOD COUNT 3.84 10^6/uL (4.00-5.40); WHITE BLOOD COUNT 5.7 10^3/uL (4.0-10.0)
[2022-03-31 06:59] LABS: BLOOD UREA NITROGEN 16 MG/DL (7-18); CALCIUM LEVEL 9.2 MG/DL (8.5-10.1); CARBON DIOXIDE LEVEL 32 MEQ/L (21-32); CHLORIDE LEVEL 100 MEQ/L (98-107); CREATININE FOR GFR 0.73 MG/DL (0.55-1.30); GLOMERULAR FILTRATION RATE > 60.0 (>58); GLUCOSE, FASTING 94 MG/DL (70-100); POTASSIUM SERUM 2.9 MEQ/L (3.5-5.1); SODIUM LEVEL 139 MEQ/L (136-145)
[2022-03-31] MEDS: TOPIRAMATE (TopAMAX) 100 MG TAB PO SCH ×2 (09:47→21:55)
[2022-03-31] MEDS: ESCITALOPRAM OXALATE 10 MG TAB (LEXAPRO) PO SCH (09:48)
[2022-03-31] MEDS: buPROPion **SR TABLET** (ZYBAN) 150MG PO SCH ×2 (09:48→21:55)
[2022-03-31] MEDS: busPIRone 5 MG TAB PO SCH ×2 (09:48→21:55)
[2022-03-31] MEDS: POTASSIUM CHLORIDE 10MEQ SR TABLET PO SCH ×3 (09:48→21:55)
[2022-03-31 11:37] LABS: APPEARANCE, URINE CLEAR (CLEAR); BACTERIA, URINE AUTO 1+ (NEGATIVE); BILIRUBIN, URINE AUTO NEGATIVE (NEGATIVE); BLOOD, URINE BLOOD NEGATIVE (NEGATIVE); COLOR, URINE YELLOW (YELLOW); GLUCOSE, URINE (UA) AUTO NEGATIVE (NEGATIVE); KETONE, URINE AUTO NEGATIVE (NEGATIVE); LEUKOCYTE ESTERASE, URINE AUTO NEGATIVE (NEGATIVE); MUCUS, URINE SMALL (NEGATIVE); NITRITE, URINE AUTO NEGATIVE (NEGATIVE); PROTEIN, URINE AUTO NEGATIVE (NEGATIVE); RBC, URINE AUTO 0 /HPF (0-3); SPECIFIC GRAVITY URINE AUTO 1.006 (1.002-1.035); SQUAMOUS EPITHELIAL CELL UR AU 1 /HPF (0-6); UROBILINOGEN, URINE AUTO 0.2 mg/dL (0.0-2.0); WBC, URINE AUTO 1 /HPF (0-3)
[2022-03-31] MEDS ORDERED: POTA-136 PO ×2 (12:27→13:39)
[2022-03-31 13:28] LABS: BLOOD UREA NITROGEN 13 MG/DL (7-18); CALCIUM LEVEL 8.8 MG/DL (8.5-10.1); CARBON DIOXIDE LEVEL 33 MEQ/L (21-32); CHLORIDE LEVEL 95 MEQ/L (98-107); CREATININE FOR GFR 0.69 MG/DL (0.55-1.30); GLOMERULAR FILTRATION RATE > 60.0 (>58); GLUCOSE, FASTING 92 MG/DL (70-100); POTASSIUM SERUM 2.7 MEQ/L (3.5-5.1); SODIUM LEVEL 133 MEQ/L (136-145)
[2022-03-31 14:16] LABS: CREATININE,RANDOM URINE 39.3 MG/DL; POTASSIUM RANDOM URINE 30.9 MEQ/L
[2022-03-31 18:03] LABS: BLOOD UREA NITROGEN 11 MG/DL (7-18); CALCIUM LEVEL 9.7 MG/DL (8.5-10.1); CARBON DIOXIDE LEVEL 35 MEQ/L (21-32); CHLORIDE LEVEL 92 MEQ/L (98-107); GLOMERULAR FILTRATION RATE > 60.0 (>58); GLUCOSE, FASTING 100 MG/DL (70-100); POTASSIUM SERUM 2.8 MEQ/L (3.5-5.1); SODIUM LEVEL 131 MEQ/L (136-145)
[2022-03-31] MEDS: ONDANSETRON 4MG ORAL DISINTEGRATING TAB PO PRN (19:39)
[2022-03-31] MEDS ORDERED: NS 1,000 ML IV ONE ×2 (21:05→23:05)
[2022-03-31] MEDS: AMITRIPTYLINE 50 MG TAB PO SCH (21:56)
[2022-03-31] MEDS: PRAMIPEXOLE 0.25 MG TAB PO SCH (21:56)
[2022-03-31] MEDS: MONTELUKAST 10 MG TAB PO SCH (21:56)
[2022-03-31] MEDS ORDERED: ONDANSETRON 4MG 2ML VIAL IV ONE (22:00)
[2022-04-01] VITALS (8 sets, daily range): BP systolic 82–101; BP diastolic 48–60
[2022-04-01 01:18] LABS: BLOOD UREA NITROGEN 11 MG/DL (7-18); CALCIUM LEVEL 7.6 MG/DL (8.5-10.1); CARBON DIOXIDE LEVEL 33 MEQ/L (21-32); CHLORIDE LEVEL 102 MEQ/L (98-107); CREATININE FOR GFR 0.66 MG/DL (0.55-1.30); GLOMERULAR FILTRATION RATE > 60.0 (>58); GLUCOSE, FASTING 86 MG/DL (70-100); POTASSIUM SERUM 2.6 MEQ/L (3.5-5.1); SODIUM LEVEL 138 MEQ/L (136-145)
[2022-04-01] MEDS ORDERED: MIDODRINE 5 MG TAB PO ONE (02:00)
[2022-04-01] MEDS ORDERED: POTASSIUM CHLORIDE 10MEQ SR TABLET PO ONE ×2 (02:00→05:00)
[2022-04-01] MEDS ORDERED: LR 1,000 ML IV ONE ×4 (02:00→06:30)
[2022-04-01] MEDS: HEPARIN SOD (PORCINE) 5000UNITS/ML 1ML VIAL/SYRINGE SC SCH ×3 (06:16→21:15)
[2022-04-01 07:07] LABS: BASO % 0.9 % (0.0-1.0); EOS # 0.4 10^3/uL (0.0-0.5); EOS % 8.8 % (0.0-3.0); HEMATOCRIT 28.5 % (36.0-47.0); LYMPH # 1.9 10^3/uL (1.5-5.0); MEAN CORPUSCULAR HGB CONC 33.3 g/dl (32.0-36.5); MEAN CORPUSCULAR VOLUME 89.9 fl (80.0-96.0); MONO # 0.4 10^3/uL (0.0-0.8); MONO % 8.6 % (2.0-8.0); NEUTROPHILS # 1.7 10^3/uL (1.5-8.5); NEUTROPHILS % 37.7 % (36.0-66.0); PLATELET COUNT, AUTOMATED 234 10^3/uL (150-450); RED BLOOD COUNT 3.17 10^6/uL (4.00-5.40); WHITE BLOOD COUNT 4.4 10^3/uL (4.0-10.0)
[2022-04-01 07:12] LABS: HEMOGLOBIN 9.5 g/dl (12.0-15.5)
[2022-04-01 07:35] LABS: BLOOD UREA NITROGEN 8 MG/DL (7-18); CALCIUM LEVEL 8.3 MG/DL (8.5-10.1); CARBON DIOXIDE LEVEL 31 MEQ/L (21-32); CHLORIDE LEVEL 107 MEQ/L (98-107); CREATININE FOR GFR 0.67 MG/DL (0.55-1.30); GLOMERULAR FILTRATION RATE > 60.0 (>58); GLUCOSE, FASTING 81 MG/DL (70-100); MAGNESIUM LEVEL 1.7 MG/DL (1.8-2.4); POTASSIUM SERUM 3.2 MEQ/L (3.5-5.1); SODIUM LEVEL 141 MEQ/L (136-145)
[2022-04-01] MEDS: MIDODRINE 5 MG TAB PO SCH ×2 (07:53→17:24)
[2022-04-01] MEDS: ESCITALOPRAM OXALATE 10 MG TAB (LEXAPRO) PO SCH (08:59)
[2022-04-01] MEDS: POTASSIUM CHLORIDE 10MEQ SR TABLET PO SCH ×4 (08:59→20:54)
[2022-04-01] MEDS: buPROPion **SR TABLET** (ZYBAN) 150MG PO SCH ×2 (09:00→20:55)
[2022-04-01] MEDS: busPIRone 5 MG TAB PO SCH ×2 (09:00→20:54)
[2022-04-01] MEDS: TOPIRAMATE (TopAMAX) 100 MG TAB PO SCH ×2 (09:00→20:53)
[2022-04-01] MEDS ORDERED: MAGNESIUM OXIDE 400MG TAB (MAG-OX) PO ONE (09:00)
[2022-04-01] MEDS ORDERED: MAG SULF 1GM/100ML (MAG RUN) 1 GM in IV 1 EA IV ONE (09:00)
[2022-04-01 10:48] LABS: POTASSIUM RANDOM URINE 7.1 MEQ/L
[2022-04-01 12:46] LABS: BLOOD UREA NITROGEN 7 MG/DL (7-18); CALCIUM LEVEL 9.1 MG/DL (8.5-10.1); CARBON DIOXIDE LEVEL 29 MEQ/L (21-32); CHLORIDE LEVEL 106 MEQ/L (98-107); GLOMERULAR FILTRATION RATE > 60.0 (>58); GLUCOSE, FASTING 89 MG/DL (70-100); POTASSIUM SERUM 3.7 MEQ/L (3.5-5.1); SODIUM LEVEL 138 MEQ/L (136-145)
[2022-04-01 18:53] LABS: BLOOD UREA NITROGEN 7 MG/DL (7-18); CALCIUM LEVEL 8.9 MG/DL (8.5-10.1); CARBON DIOXIDE LEVEL 28 MEQ/L (21-32); CHLORIDE LEVEL 108 MEQ/L (98-107); CREATININE FOR GFR 0.75 MG/DL (0.55-1.30); GLOMERULAR FILTRATION RATE > 60.0 (>58); GLUCOSE, FASTING 96 MG/DL (70-100); POTASSIUM SERUM 3.8 MEQ/L (3.5-5.1); SODIUM LEVEL 140 MEQ/L (136-145)
[2022-04-01] MEDS: AMITRIPTYLINE 50 MG TAB PO SCH (20:55)
[2022-04-01] MEDS: PRAMIPEXOLE 0.25 MG TAB PO SCH (20:55)
[2022-04-01] MEDS: MONTELUKAST 10 MG TAB PO SCH (20:55)
[2022-04-01] MEDS: ONDANSETRON 4MG ORAL DISINTEGRATING TAB PO PRN (22:11)
[2022-04-02] VITALS: BP 94/62
[2022-04-02 04:00] VITALS: BP 91/50
[2022-04-02] MEDS: HEPARIN SOD (PORCINE) 5000UNITS/ML 1ML VIAL/SYRINGE SC SCH (05:45)
[2022-04-02 05:55] LABS: BASO % 0.6 % (0.0-1.0); EOS # 0.4 10^3/uL (0.0-0.5); EOS % 5.9 % (0.0-3.0); HEMATOCRIT 31.8 % (36.0-47.0); HEMOGLOBIN 10.4 g/dl (12.0-15.5); LYMPH # 1.7 10^3/uL (1.5-5.0); MEAN CORPUSCULAR HEMOGLOBIN 29.8 pg (27.0-33.0); MEAN CORPUSCULAR HGB CONC 32.7 g/dl (32.0-36.5); MEAN CORPUSCULAR VOLUME 91.1 fl (80.0-96.0); MONO # 0.4 10^3/uL (0.0-0.8); MONO % 5.5 % (2.0-8.0); NEUTROPHILS # 4.4 10^3/uL (1.5-8.5); NEUTROPHILS % 62.9 % (36.0-66.0); PLATELET COUNT, AUTOMATED 247 10^3/uL (150-450); RED BLOOD COUNT 3.49 10^6/uL (4.00-5.40)
[2022-04-02 06:28] LABS: BLOOD UREA NITROGEN 9 MG/DL (7-18); CALCIUM LEVEL 8.6 MG/DL (8.5-10.1); CARBON DIOXIDE LEVEL 26 MEQ/L (21-32); CHLORIDE LEVEL 111 MEQ/L (98-107); CREATININE FOR GFR 0.68 MG/DL (0.55-1.30); GLOMERULAR FILTRATION RATE > 60.0 (>58); GLUCOSE, FASTING 87 MG/DL (70-100); POTASSIUM SERUM 4.3 MEQ/L (3.5-5.1); SODIUM LEVEL 142 MEQ/L (136-145)
[2022-04-02] MEDS ORDERED: POTA-136 PO (07:33)
[2022-04-02 07:51] VITALS: BP 98/48
[2022-04-02] MEDS: MIDODRINE 5 MG TAB PO SCH (08:12)
[2022-04-02] MEDS: busPIRone 5 MG TAB PO SCH (08:12)
[2022-04-02] MEDS: buPROPion **SR TABLET** (ZYBAN) 150MG PO SCH (08:12)
[2022-04-02] MEDS: TOPIRAMATE (TopAMAX) 100 MG TAB PO SCH (08:12)
[2022-04-02] MEDS: ESCITALOPRAM OXALATE 10 MG TAB (LEXAPRO) PO SCH (08:12)
[2022-04-02] MEDS ORDERED: POTASSIUM CHLORIDE 10MEQ SR TABLET PO SCH (09:00)
[2022-04-02 09:29] LABS: MAGNESIUM LEVEL 2.1 MG/DL (1.8-2.4)
== END 2022-04-02 10:00 | disposition home or self-care (01) | DRG 204 ==
LOC: M ED 19:26 → M ED INP 23:00 → M PCU 03-30 01:17
PROVIDERS: ADMIT Family Medicine; ATTEND Internal Medicine Nephrology
DX: I95.1 Orthostatic hypotension (principal); E87.3 Alkalosis; E87.1 Hypo-osmolality and hyponatremia; E83.42 Hypomagnesemia; F50.9 Eating disorder, unspecified; G43.909 Migraine, unspecified, not intractable, without status migrainosus; F32.A Depression, unspecified; F41.9 Anxiety disorder, unspecified; E87.6 Hypokalemia; E86.0 Dehydration; R11.0 Nausea; I95.89 Other hypotension; R40.0 Somnolence; R53.1 Weakness; M48.061 Spinal stenosis, lumbar region without neurogenic claudication; J30.9 Allergic rhinitis, unspecified; Z98.84 Bariatric surgery status; Z90.49 Acquired absence of other specified parts of digestive tract; Z79.899 Other long term (current) drug therapy; Z88.0 Allergy status to penicillin; Z88.5 Allergy status to narcotic agent; Z88.2 Allergy status to sulfonamides

== ENCOUNTER → 2022-04-14 | Outpatient (CLI) | payer BC ==
[~2022-04-14] MED LIST changes: +HYDR1CAP25 PO; +POTA-136 PO; +RIZA10TA58 SL
[2022-04-14 18:38] LABS: ALBUMIN 3.4 GM/DL (3.2-5.2); ALT/SGPT 21 U/L (12-78); BILIRUBIN,TOTAL 0.3 MG/DL (0.2-1.0); BLOOD UREA NITROGEN 9 MG/DL (7-18); CALCIUM LEVEL 9.3 MG/DL (8.5-10.1); CARBON DIOXIDE LEVEL 33 MEQ/L (21-32); CHLORIDE LEVEL 96 MEQ/L (98-107); CREATININE FOR GFR 0.86 MG/DL (0.55-1.30); GLOMERULAR FILTRATION RATE > 60.0 (>58); GLUCOSE, FASTING 79 MG/DL (70-100); POTASSIUM SERUM 2.6 MEQ/L (3.5-5.1); SODIUM LEVEL 134 MEQ/L (136-145); TOTAL PROTEIN 6.4 GM/DL (6.4-8.2)
== END ==
LOC: M PLALAB 12:52
DX: E87.8 Other disorders of electrolyte and fluid balance, not elsewhere classified (principal)

== ENCOUNTER 2022-04-17 19:00 | Inpatient (IN) | payer BC ==
[~2022-04-17] VITALS: Ht 157.5 cm; Wt 51.2 kg
[~2022-04-17 19:00] MED LIST changes: -POTA10CA32 PO
[2022-04-17] MEDS ORDERED: KCL 10MEQ/100ML SWI (KRUN) 10 MEQ in IV 1 EA IV ONE ×4 (20:55)
[2022-04-17 21:02] LABS: BASO # 0.1 10^3/uL (0.0-0.2); BASO % 0.7 % (0.0-1.0); EOS # 0.4 10^3/uL (0.0-0.5); EOS % 4.5 % (0.0-3.0); HEMATOCRIT 32.9 % (36.0-47.0); HEMOGLOBIN 11.7 g/dl (12.0-15.5); LYMPH # 2.7 10^3/uL (1.5-5.0); LYMPH % 31.8 % (24.0-44.0); MEAN CORPUSCULAR HEMOGLOBIN 30.3 pg (27.0-33.0); MEAN CORPUSCULAR HGB CONC 35.6 g/dl (32.0-36.5); MEAN CORPUSCULAR VOLUME 85.2 fl (80.0-96.0); MONO # 0.5 10^3/uL (0.0-0.8); MONO % 6.2 % (2.0-8.0); NEUTROPHILS # 4.7 10^3/uL (1.5-8.5); NEUTROPHILS % 56.4 % (36.0-66.0); PLATELET COUNT, AUTOMATED 333 10^3/uL (150-450); RED BLOOD COUNT 3.86 10^6/uL (4.00-5.40); WHITE BLOOD COUNT 8.4 10^3/uL (4.0-10.0)
[2022-04-17 21:56] LABS: BLOOD UREA NITROGEN 11 MG/DL (7-18); CALCIUM LEVEL 8.6 MG/DL (8.5-10.1); CARBON DIOXIDE LEVEL 31 MEQ/L (21-32); CHLORIDE LEVEL 99 MEQ/L (98-107); CREATININE FOR GFR 0.73 MG/DL (0.55-1.30); GLOMERULAR FILTRATION RATE > 60.0 (>58); GLUCOSE, FASTING 90 MG/DL (70-100); MAGNESIUM LEVEL 2.2 MG/DL (1.8-2.4); POTASSIUM SERUM 2.4 MEQ/L (3.5-5.1); SODIUM LEVEL 138 MEQ/L (136-145)
[2022-04-17] MEDS ORDERED: POTA10CA32 PO (22:37)
[2022-04-17] MEDS ORDERED: ONDA4TAB6 PO (22:37)
[2022-04-17] MEDS ORDERED: HOME MED LIST COMPLETE! XX SCH (22:40)
[2022-04-17 23:06] LABS: RSV AMPLIFICATION NEGATIVE (NEGATIVE)
[2022-04-17] MEDS ORDERED: ACETAMINOPHEN TAB 650MG DOSE (2X325MG) PO PRN (23:25)
[2022-04-18 06:18] LABS: APPEARANCE, URINE CLEAR (CLEAR); BACTERIA, URINE AUTO NEGATIVE (NEGATIVE); BILIRUBIN, URINE AUTO NEGATIVE (NEGATIVE); BLOOD, URINE BLOOD NEGATIVE (NEGATIVE); COLOR, URINE STRAW (YELLOW); GLUCOSE, URINE (UA) AUTO NEGATIVE (NEGATIVE); KETONE, URINE AUTO NEGATIVE (NEGATIVE); LEUKOCYTE ESTERASE, URINE AUTO NEGATIVE (NEGATIVE); MUCUS, URINE SMALL (NEGATIVE); NITRITE, URINE AUTO NEGATIVE (NEGATIVE); PROTEIN, URINE AUTO NEGATIVE (NEGATIVE); RBC, URINE AUTO 1 /HPF (0-3); SPECIFIC GRAVITY URINE AUTO 1.004 (1.002-1.035); SQUAMOUS EPITHELIAL CELL UR AU 0 /HPF (0-6); UROBILINOGEN, URINE AUTO 0.2 mg/dL (0.0-2.0); WBC, URINE AUTO 1 /HPF (0-3)
[2022-04-18 06:28] LABS: CREATININE,RANDOM URINE 27.9 MG/DL; POTASSIUM RANDOM URINE 4.4 MEQ/L
[2022-04-18 06:31] LABS: BLOOD UREA NITROGEN 9 MG/DL (7-18); CALCIUM LEVEL 8.6 MG/DL (8.5-10.1); CARBON DIOXIDE LEVEL 30 MEQ/L (21-32); CHLORIDE LEVEL 103 MEQ/L (98-107); CREATININE FOR GFR 0.79 MG/DL (0.55-1.30); GLOMERULAR FILTRATION RATE > 60.0 (>58); GLUCOSE, FASTING 98 MG/DL (70-100); MAGNESIUM LEVEL 2.1 MG/DL (1.8-2.4); POTASSIUM SERUM 2.4 MEQ/L (3.5-5.1); SODIUM LEVEL 141 MEQ/L (136-145)
[2022-04-18] MEDS: KCL 10MEQ/100ML SWI (KRUN) 10 MEQ in IV 1 EA IV SCH ×2 (07:12→08:39)
[2022-04-18 07:29] LABS: OSMOLALITY URINE 232 MOSM/KG (50-1400)
[2022-04-18] MEDS ORDERED: POTASSIUM CHLORIDE 10% LIQ 20 MEQ/15 ML UDC PO ONE (08:00)
[2022-04-18] MEDS ORDERED: POTASSIUM CHLORIDE 10MEQ SR TABLET PO SCH (09:00)
[2022-04-18] MEDS ORDERED: PANTOPRAZOLE 40MG TAB (PROTONIX) PO PRN (09:45)
[2022-04-18] MEDS ORDERED: SUMAtriptan SUCCINATE 25 MG TAB PO PRN (09:45)
[2022-04-18] MEDS ORDERED: DOCUSATE SODIUM 100MG CAPSULE PO PRN (09:45)
[2022-04-18] MEDS ORDERED: CETIRIZINE (ZyrTEC) 10 MG TAB PO PRN (09:45)
[2022-04-18] MEDS ORDERED: valACYclovir HCL 500 MG TAB PO PRN (09:45)
[2022-04-18 11:39] LABS: BLOOD UREA NITROGEN 9 MG/DL (7-18); CALCIUM LEVEL 8.5 MG/DL (8.5-10.1); CARBON DIOXIDE LEVEL 31 MEQ/L (21-32); CHLORIDE LEVEL 105 MEQ/L (98-107); CREATININE FOR GFR 0.64 MG/DL (0.55-1.30); GLOMERULAR FILTRATION RATE > 60.0 (>58); GLUCOSE, FASTING 103 MG/DL (70-100); POTASSIUM SERUM 2.5 MEQ/L (3.5-5.1); SODIUM LEVEL 142 MEQ/L (136-145)
[2022-04-18] MEDS: busPIRone 5 MG TAB PO SCH ×2 (12:53→22:13)
[2022-04-18] MEDS: ESCITALOPRAM OXALATE 10 MG TAB (LEXAPRO) PO SCH (12:53)
[2022-04-18] MEDS: buPROPion **SR TABLET** (ZYBAN) 150MG PO SCH ×2 (12:53→20:22)
[2022-04-18 13:30] LABS: BLOOD UREA NITROGEN 8 MG/DL (7-18); CALCIUM LEVEL 8.7 MG/DL (8.5-10.1); CARBON DIOXIDE LEVEL 30 MEQ/L (21-32); CHLORIDE LEVEL 105 MEQ/L (98-107); CREATININE FOR GFR 0.69 MG/DL (0.55-1.30); GLOMERULAR FILTRATION RATE > 60.0 (>58); GLUCOSE, FASTING 143 MG/DL (70-100); POTASSIUM SERUM 2.4 MEQ/L (3.5-5.1); SODIUM LEVEL 143 MEQ/L (136-145)
[2022-04-18 15:00] VITALS: BP 96/59
[2022-04-18 17:40] LABS: BLOOD UREA NITROGEN 9 MG/DL (7-18); CALCIUM LEVEL 8.7 MG/DL (8.5-10.1); CARBON DIOXIDE LEVEL 27 MEQ/L (21-32); CHLORIDE LEVEL 108 MEQ/L (98-107); GLOMERULAR FILTRATION RATE > 60.0 (>58); GLUCOSE, FASTING 90 MG/DL (70-100); POTASSIUM SERUM 3.5 MEQ/L (3.5-5.1); SODIUM LEVEL 142 MEQ/L (136-145)
[2022-04-18 17:48] LABS: OSMOLALITY SERUM 279 MOSM/KG (275-295)
[2022-04-18 18:00] VITALS: BP_SYST 102; BP_SYST 87; BP_DIAS 51; BP_DIAS 56
[2022-04-18 18:24] LABS: VENOUS BASE EXCESS -0.3 (-2.0-2.0); VENOUS HCO3 23.8 MEQ/L (23.0-27.0); VENOUS O2 SATURATION 81.9 % (60.0-80.0); VENOUS PARTIAL PRESSURE CO2 36.8 mmHg (38.0-50.0); VENOUS PARTIAL PRESSURE O2 43.5 mmHg (30.0-50.0); VENOUS PH 7.428 UNITS (7.330-7.430); VENOUS STANDARD HCO3 23.9 MEQ/L; VENOUS TOTAL CO2 24.9 MEQ/L (24.0-28.0)
[2022-04-18 19:19] VITALS: BP 92/58
[2022-04-18 20:04] VITALS: BP 90/52
[2022-04-18] MEDS: KCL 20MEQ IN D5/NS 1000ML 1,000 ML IV SCH (20:19)
[2022-04-18] MEDS: MONTELUKAST 10 MG TAB PO SCH (20:22)
[2022-04-18] MEDS: PRAMIPEXOLE 0.25 MG TAB PO SCH (20:22)
[2022-04-18] MEDS: TOPIRAMATE (TopAMAX) 100 MG TAB PO SCH (20:22)
[2022-04-18] MEDS: AMITRIPTYLINE 50 MG TAB PO SCH (20:22)
[2022-04-18] MEDS: ENOXAPARIN 30MG/0.3ML SYRINGE (J1650 PER 10MG) SC SCH (20:23)
[2022-04-18] MEDS: POTASSIUM CHLORIDE 10MEQ SR TABLET PO SCH (20:23)
[2022-04-18 20:49] VITALS: BP 96/62
[2022-04-18] MEDS: zolPIDEM TARTRATE 5 MG TAB PO PRN (20:51)
[2022-04-18] MEDS: clonazePAM 0.5 MG TAB PO PRN (20:52)
[2022-04-18 22:40] VITALS: BP 90/58
[2022-04-19] VITALS (10 sets, daily range): BP systolic 80–115; BP diastolic 43–75
[2022-04-19] MEDS ORDERED: NS 500 ML IV ONE ×2 (05:00→05:50)
[2022-04-19] MEDS: KCL 20MEQ IN D5/NS 1000ML 1,000 ML IV SCH (06:38)
[2022-04-19 07:49] LABS: HEMATOCRIT 31.4 % (36.0-47.0); HEMOGLOBIN 10.5 g/dl (12.0-15.5); MEAN CORPUSCULAR HEMOGLOBIN 29.9 pg (27.0-33.0); MEAN CORPUSCULAR HGB CONC 33.4 g/dl (32.0-36.5); MEAN CORPUSCULAR VOLUME 89.5 fl (80.0-96.0); PLATELET COUNT, AUTOMATED 262 10^3/uL (150-450); RED BLOOD COUNT 3.51 10^6/uL (4.00-5.40); WHITE BLOOD COUNT 5.3 10^3/uL (4.0-10.0)
[2022-04-19 08:26] LABS: BLOOD UREA NITROGEN 6 MG/DL (7-18); CALCIUM LEVEL 8.1 MG/DL (8.5-10.1); CARBON DIOXIDE LEVEL 28 MEQ/L (21-32); CHLORIDE LEVEL 110 MEQ/L (98-107); CREATININE FOR GFR 0.61 MG/DL (0.55-1.30); FREE T4 1.03 NG/DL (0.76-1.46); GLOMERULAR FILTRATION RATE > 60.0 (>58); GLUCOSE, FASTING 99 MG/DL (70-100); POTASSIUM SERUM 2.9 MEQ/L (3.5-5.1); SODIUM LEVEL 144 MEQ/L (136-145)
[2022-04-19] MEDS ORDERED: POTASSIUM CHLORIDE 10MEQ SR TABLET PO ONE (08:35)
[2022-04-19] MEDS: ESCITALOPRAM OXALATE 10 MG TAB (LEXAPRO) PO SCH (08:45)
[2022-04-19] MEDS: TOPIRAMATE (TopAMAX) 100 MG TAB PO SCH ×2 (08:45→20:29)
[2022-04-19] MEDS: buPROPion **SR TABLET** (ZYBAN) 150MG PO SCH ×2 (08:45→20:29)
[2022-04-19] MEDS: POTASSIUM CHLORIDE 10MEQ SR TABLET PO SCH ×3 (08:46→20:29)
[2022-04-19] MEDS: busPIRone 5 MG TAB PO SCH ×2 (08:46→21:01)
[2022-04-19 11:37] LABS: POTASSIUM 24 HOUR URINE 31.8 MEQ/24HR (25-125); POTASSIUM URINE 9.8 MEQ/L
[2022-04-19] MEDS: ONDANSETRON 4MG TAB PO PRN (16:30)
[2022-04-19 20:28] LABS: BLOOD UREA NITROGEN 10 MG/DL (7-18); CALCIUM LEVEL 7.8 MG/DL (8.5-10.1); CARBON DIOXIDE LEVEL 29 MEQ/L (21-32); CHLORIDE LEVEL 110 MEQ/L (98-107); CREATININE FOR GFR 0.75 MG/DL (0.55-1.30); GLOMERULAR FILTRATION RATE > 60.0 (>58); GLUCOSE, FASTING 118 MG/DL (70-100); POTASSIUM SERUM 3.1 MEQ/L (3.5-5.1); SODIUM LEVEL 143 MEQ/L (136-145)
[2022-04-19] MEDS: MONTELUKAST 10 MG TAB PO SCH (20:29)
[2022-04-19] MEDS: AMITRIPTYLINE 50 MG TAB PO SCH (20:29)
[2022-04-19] MEDS: PRAMIPEXOLE 0.25 MG TAB PO SCH (20:29)
[2022-04-19] MEDS: ENOXAPARIN 30MG/0.3ML SYRINGE (J1650 PER 10MG) SC SCH (20:30)
[2022-04-19] MEDS ORDERED: NS 1,000 ML IV SCH (20:50)
[2022-04-19] MEDS: clonazePAM 0.5 MG TAB PO PRN (21:02)
[2022-04-19] MEDS: zolPIDEM TARTRATE 5 MG TAB PO PRN (21:54)
[2022-04-20] VITALS: BP 100/58
[2022-04-20] MEDS ORDERED: NS 1,000 ML IV ONE (02:40)
[2022-04-20 04:35] VITALS: BP 110/70
[2022-04-20 04:44] LABS: HEMATOCRIT 29.9 % (36.0-47.0); HEMOGLOBIN 9.9 g/dl (12.0-15.5); MEAN CORPUSCULAR HEMOGLOBIN 30.1 pg (27.0-33.0); MEAN CORPUSCULAR HGB CONC 33.1 g/dl (32.0-36.5); MEAN CORPUSCULAR VOLUME 90.9 fl (80.0-96.0); PLATELET COUNT, AUTOMATED 250 10^3/uL (150-450); RED BLOOD COUNT 3.29 10^6/uL (4.00-5.40); WHITE BLOOD COUNT 6.1 10^3/uL (4.0-10.0)
[2022-04-20 05:09] LABS: BLOOD UREA NITROGEN 8 MG/DL (7-18); CALCIUM LEVEL 7.9 MG/DL (8.5-10.1); CARBON DIOXIDE LEVEL 24 MEQ/L (21-32); CHLORIDE LEVEL 115 MEQ/L (98-107); CREATININE FOR GFR 0.67 MG/DL (0.55-1.30); GLOMERULAR FILTRATION RATE > 60.0 (>58); GLUCOSE, FASTING 82 MG/DL (70-100); POTASSIUM SERUM 2.8 MEQ/L (3.5-5.1); SODIUM LEVEL 144 MEQ/L (136-145)
[2022-04-20] MEDS ORDERED: POTASSIUM CHLORIDE 10MEQ SR TABLET PO ONE (06:00)
[2022-04-20 08:00] VITALS: BP 88/50
[2022-04-20] MEDS: TOPIRAMATE (TopAMAX) 100 MG TAB PO SCH ×2 (08:15→20:26)
[2022-04-20] MEDS: buPROPion **SR TABLET** (ZYBAN) 150MG PO SCH ×2 (08:15→20:24)
[2022-04-20] MEDS: ESCITALOPRAM OXALATE 10 MG TAB (LEXAPRO) PO SCH (08:16)
[2022-04-20 08:28] LABS: ALBUMIN 2.6 GM/DL (3.2-5.2); ALT/SGPT 15 U/L (12-78); BILIRUBIN,TOTAL 0.2 MG/DL (0.2-1.0); BLOOD UREA NITROGEN 7 MG/DL (7-18); CALCIUM LEVEL 8.2 MG/DL (8.5-10.1); CARBON DIOXIDE LEVEL 27 MEQ/L (21-32); CHLORIDE LEVEL 111 MEQ/L (98-107); GLOMERULAR FILTRATION RATE > 60.0 (>58); GLUCOSE, FASTING 88 MG/DL (70-100); POTASSIUM SERUM 3.2 MEQ/L (3.5-5.1); SODIUM LEVEL 144 MEQ/L (136-145); TOTAL PROTEIN 5.2 GM/DL (6.4-8.2)
[2022-04-20] MEDS ORDERED: POTASSIUM CHLORIDE 10MEQ SR TABLET PO SCH ×2 (09:00)
[2022-04-20] MEDS: busPIRone 5 MG TAB PO SCH ×2 (09:17→20:25)
[2022-04-20] MEDS: clonazePAM 0.5 MG TAB PO PRN ×2 (09:17→20:35)
[2022-04-20] MEDS: KCL 20MEQ IN D5/NS 1000ML 1,000 ML IV SCH ×2 (11:24→20:26)
[2022-04-20] MEDS: POTASSIUM CHL PWD 20 MEQ PACKET PO SCH ×3 (11:24→20:25)
[2022-04-20 13:13] VITALS: BP 90/52
[2022-04-20 16:12] VITALS: BP 93/54
[2022-04-20] MEDS ORDERED: GOLYTELY SOLN 4000 ML BTL PO ONE (19:00)
[2022-04-20] MEDS: MONTELUKAST 10 MG TAB PO SCH (20:23)
[2022-04-20] MEDS: PRAMIPEXOLE 0.25 MG TAB PO SCH (20:24)
[2022-04-20 20:25] VITALS: BP 94/62
[2022-04-20] MEDS: AMITRIPTYLINE 50 MG TAB PO SCH (20:25)
[2022-04-20] MEDS: ENOXAPARIN 30MG/0.3ML SYRINGE (J1650 PER 10MG) SC SCH (20:25)
[2022-04-20] MEDS: zolPIDEM TARTRATE 5 MG TAB PO PRN (20:34)
[2022-04-21] VITALS: BP 96/62
[2022-04-21] MEDS: ONDANSETRON 4MG TAB PO PRN ×3 (02:37→21:24)
[2022-04-21] MEDS: KCL 20MEQ IN D5/NS 1000ML 1,000 ML IV SCH ×2 (02:42→11:36)
[2022-04-21 06:13] VITALS: BP 98/54
[2022-04-21 06:37] LABS: HEMATOCRIT 29.9 % (36.0-47.0); HEMOGLOBIN 10.1 g/dl (12.0-15.5); MEAN CORPUSCULAR HEMOGLOBIN 30.3 pg (27.0-33.0); MEAN CORPUSCULAR HGB CONC 33.8 g/dl (32.0-36.5); MEAN CORPUSCULAR VOLUME 89.8 fl (80.0-96.0); PLATELET COUNT, AUTOMATED 240 10^3/uL (150-450); RED BLOOD COUNT 3.33 10^6/uL (4.00-5.40); WHITE BLOOD COUNT 4.9 10^3/uL (4.0-10.0)
[2022-04-21 07:12] LABS: ALBUMIN 2.5 GM/DL (3.2-5.2); ALT/SGPT 23 U/L (12-78); BILIRUBIN,TOTAL 0.3 MG/DL (0.2-1.0); BLOOD UREA NITROGEN 4 MG/DL (7-18); CALCIUM LEVEL 8.2 MG/DL (8.5-10.1); CARBON DIOXIDE LEVEL 27 MEQ/L (21-32); CHLORIDE LEVEL 110 MEQ/L (98-107); CREATININE FOR GFR 0.58 MG/DL (0.55-1.30); GLOMERULAR FILTRATION RATE > 60.0 (>58); GLUCOSE, FASTING 89 MG/DL (70-100); POTASSIUM SERUM 2.8 MEQ/L (3.5-5.1); SODIUM LEVEL 142 MEQ/L (136-145); TOTAL PROTEIN 5.3 GM/DL (6.4-8.2)
[2022-04-21 08:00] VITALS: BP 88/50
[2022-04-21] MEDS: busPIRone 5 MG TAB PO SCH ×2 (08:12→21:15)
[2022-04-21] MEDS: ESCITALOPRAM OXALATE 10 MG TAB (LEXAPRO) PO SCH (08:12)
[2022-04-21] MEDS: buPROPion **SR TABLET** (ZYBAN) 150MG PO SCH ×2 (08:12→21:15)
[2022-04-21] MEDS: POTASSIUM CHL PWD 20 MEQ PACKET PO SCH ×3 (08:12→21:15)
[2022-04-21] MEDS: clonazePAM 0.5 MG TAB PO PRN ×2 (08:17→21:24)
[2022-04-21] MEDS: RIZATRIPTAN MLT 10 MG TAB SL SCH (10:32)
[2022-04-21 11:45] LABS: BLOOD UREA NITROGEN 3 MG/DL (7-18); CALCIUM LEVEL 8.4 MG/DL (8.5-10.1); CARBON DIOXIDE LEVEL 29 MEQ/L (21-32); CHLORIDE LEVEL 109 MEQ/L (98-107); CREATININE FOR GFR 0.64 MG/DL (0.55-1.30); GLOMERULAR FILTRATION RATE > 60.0 (>58); GLUCOSE, FASTING 81 MG/DL (70-100); POTASSIUM SERUM 3.5 MEQ/L (3.5-5.1); SODIUM LEVEL 142 MEQ/L (136-145)
[2022-04-21 12:28] VITALS: BP 98/55
[2022-04-21] MEDS ORDERED: fentaNYL 100 MCG/2 ML INJECTION As Ordered ONE (14:35)
[2022-04-21] MEDS ORDERED: LIDOCAINE 2% 100MG/5ML SDV (FOR ANES.) As Ordered ONE (14:36)
[2022-04-21] MEDS ORDERED: propofoL 200 MG/20 ML VIAL As Ordered ONE ×2 (14:36→14:51)
[2022-04-21] MEDS ORDERED: ePHEDrine SULFATE 25 MG/5 ML(5MG/ML) SYRINGE As Ordered ONE (14:42)
[2022-04-21] MEDS ORDERED: PHENYLephrine 500MCG 5ML (100MCG/ML) SYRINGE As Ordered ONE ×2 (14:47→15:01)
[2022-04-21 16:28] VITALS: BP 90/51
[2022-04-21 19:57] VITALS: BP 98/62
[2022-04-21] MEDS ORDERED: TOPIRAMATE (TopAMAX) 100 MG TAB PO SCH (21:00)
[2022-04-21] MEDS: ENOXAPARIN 30MG/0.3ML SYRINGE (J1650 PER 10MG) SC SCH (21:13)
[2022-04-21] MEDS: MONTELUKAST 10 MG TAB PO SCH (21:15)
[2022-04-21] MEDS: PRAMIPEXOLE 0.25 MG TAB PO SCH (21:17)
[2022-04-21] MEDS: zolPIDEM TARTRATE 5 MG TAB PO PRN (21:18)
[2022-04-21] MEDS: AMITRIPTYLINE 50 MG TAB PO SCH (21:18)
[2022-04-22] VITALS (7 sets, daily range): BP systolic 88–102; BP diastolic 50–62
[2022-04-22 06:33] LABS: HEMATOCRIT 29.6 % (36.0-47.0); HEMOGLOBIN 9.6 g/dl (12.0-15.5); MEAN CORPUSCULAR HEMOGLOBIN 29.5 pg (27.0-33.0); MEAN CORPUSCULAR HGB CONC 32.4 g/dl (32.0-36.5); MEAN CORPUSCULAR VOLUME 91.1 fl (80.0-96.0); PLATELET COUNT, AUTOMATED 230 10^3/uL (150-450); RED BLOOD COUNT 3.25 10^6/uL (4.00-5.40); WHITE BLOOD COUNT 4.7 10^3/uL (4.0-10.0)
[2022-04-22 07:11] LABS: ALBUMIN 2.4 GM/DL (3.2-5.2); ALT/SGPT 27 U/L (12-78); BILIRUBIN,TOTAL < 0.1 MG/DL (0.2-1.0); BLOOD UREA NITROGEN 6 MG/DL (7-18); CALCIUM LEVEL 8.3 MG/DL (8.5-10.1); CARBON DIOXIDE LEVEL 28 MEQ/L (21-32); CHLORIDE LEVEL 111 MEQ/L (98-107); CREATININE FOR GFR 0.66 MG/DL (0.55-1.30); GLOMERULAR FILTRATION RATE > 60.0 (>58); GLUCOSE, FASTING 87 MG/DL (70-100); POTASSIUM SERUM 3.1 MEQ/L (3.5-5.1); SODIUM LEVEL 144 MEQ/L (136-145)
[2022-04-22] MEDS: buPROPion **SR TABLET** (ZYBAN) 150MG PO SCH ×2 (09:13→22:43)
[2022-04-22] MEDS: ESCITALOPRAM OXALATE 10 MG TAB (LEXAPRO) PO SCH (09:13)
[2022-04-22] MEDS: busPIRone 5 MG TAB PO SCH ×2 (09:14→22:43)
[2022-04-22] MEDS: POTASSIUM CHL PWD 20 MEQ PACKET PO SCH ×3 (09:14→22:49)
[2022-04-22] MEDS: clonazePAM 0.5 MG TAB PO PRN ×2 (09:35→22:49)
[2022-04-22] MEDS: RIZATRIPTAN MLT 10 MG TAB SL SCH ×3 (09:35→23:13)
[2022-04-22] MEDS ORDERED: aMILoride 5 MG TAB PO ONE (11:35)
[2022-04-22] MEDS: ONDANSETRON 4MG TAB PO PRN (20:11)
[2022-04-22] MEDS ORDERED: TOPIRAMATE (TopAMAX) 25 MG TAB PO SCH (21:00)
[2022-04-22] MEDS: AMITRIPTYLINE 50 MG TAB PO SCH (22:45)
[2022-04-22] MEDS: MONTELUKAST 10 MG TAB PO SCH (22:45)
[2022-04-22] MEDS: zolPIDEM TARTRATE 5 MG TAB PO PRN (22:46)
[2022-04-22] MEDS: PRAMIPEXOLE 0.25 MG TAB PO SCH (22:46)
[2022-04-22] MEDS: DIVALPROEX 250MG *ER* TAB PO SCH (22:49)
[2022-04-22] MEDS: ENOXAPARIN 30MG/0.3ML SYRINGE (J1650 PER 10MG) SC SCH (22:54)
[2022-04-23 00:30] VITALS: BP 98/64
[2022-04-23] MEDS ORDERED: SLF 3 ML SYR IV PRN (01:40)
[2022-04-23 04:00] VITALS: BP 94/60
[2022-04-23] MEDS ORDERED: SLF 3 ML SYR IV SCH (06:00)
[2022-04-23 07:57] LABS: HEMATOCRIT 30.9 % (36.0-47.0); HEMOGLOBIN 9.8 g/dl (12.0-15.5); MEAN CORPUSCULAR HEMOGLOBIN 29.6 pg (27.0-33.0); MEAN CORPUSCULAR HGB CONC 31.7 g/dl (32.0-36.5); MEAN CORPUSCULAR VOLUME 93.4 fl (80.0-96.0); PLATELET COUNT, AUTOMATED 255 10^3/uL (150-450); RED BLOOD COUNT 3.31 10^6/uL (4.00-5.40); WHITE BLOOD COUNT 5.2 10^3/uL (4.0-10.0)
[2022-04-23 08:00] VITALS: BP 96/49
[2022-04-23] MEDS: buPROPion **SR TABLET** (ZYBAN) 150MG PO SCH (08:08)
[2022-04-23] MEDS: POTASSIUM CHL PWD 20 MEQ PACKET PO SCH (08:08)
[2022-04-23] MEDS: DIVALPROEX 250MG *ER* TAB PO SCH (08:09)
[2022-04-23] MEDS: ESCITALOPRAM OXALATE 10 MG TAB (LEXAPRO) PO SCH (08:09)
[2022-04-23] MEDS: busPIRone 5 MG TAB PO SCH (08:09)
[2022-04-23 08:37] LABS: ALBUMIN 2.7 GM/DL (3.2-5.2); ALT/SGPT 30 U/L (12-78); BILIRUBIN,TOTAL 0.2 MG/DL (0.2-1.0); BLOOD UREA NITROGEN 8 MG/DL (7-18); CALCIUM LEVEL 8.7 MG/DL (8.5-10.1); CARBON DIOXIDE LEVEL 28 MEQ/L (21-32); CHLORIDE LEVEL 111 MEQ/L (98-107); CREATININE FOR GFR 0.72 MG/DL (0.55-1.30); GLOMERULAR FILTRATION RATE > 60.0 (>58); GLUCOSE, FASTING 82 MG/DL (70-100); POTASSIUM SERUM 3.6 MEQ/L (3.5-5.1); SODIUM LEVEL 145 MEQ/L (136-145); TOTAL PROTEIN 5.4 GM/DL (6.4-8.2)
[2022-04-23] MEDS ORDERED: aMILoride 5 MG TAB PO SCH (09:00)
[2022-04-23] MEDS: clonazePAM 0.5 MG TAB PO PRN (11:52)
[2022-04-23] MEDS ORDERED: AMIL5TAB4 PO (12:26)
[2022-04-23] MEDS ORDERED: DEPA250T2 PO (12:26)
[2022-04-23] MEDS ORDERED: POTA20PW PO (12:26)
[2022-04-23 14:00] VITALS: BP 96/53
[2022-04-24] MEDS ORDERED: POTA-151 PO (18:35)
== END 2022-04-23 15:10 | disposition home or self-care (01) | DRG 425 ==
LOC: M ED 19:00 → M ED INP 19:01 → ENRESERV 04-18 13:06 → M MSPAV 04-18 15:03 → M 4MAIN 04-18 17:46 → OBSVTOIN 04-18 18:02 → M 4MAIN 04-18 18:02
PROVIDERS: ADMIT Internal Medicine; ATTEND Family Medicine
PROC: 0DB98ZX Excision of Duodenum, Via Natural or Artificial Opening Endoscopic, Diagnostic (ICD-10-PCS; 2022-04-21)
PROC: 0DBA8ZX Excision of Jejunum, Via Natural or Artificial Opening Endoscopic, Diagnostic (ICD-10-PCS; principal; 2022-04-21 14:00)
DX: E87.6 Hypokalemia (principal); I95.89 Other hypotension; D50.9 Iron deficiency anemia, unspecified; T42.6X5A Adverse effect of other antiepileptic and sedative-hypnotic drugs, initial encounter; G47.00 Insomnia, unspecified; F41.9 Anxiety disorder, unspecified; F32.A Depression, unspecified; G43.909 Migraine, unspecified, not intractable, without status migrainosus; G25.81 Restless legs syndrome; J30.9 Allergic rhinitis, unspecified; K64.4 Residual hemorrhoidal skin tags; D12.8 Benign neoplasm of rectum; K64.8 Other hemorrhoids; Z98.84 Bariatric surgery status; Z88.0 Allergy status to penicillin; Z88.2 Allergy status to sulfonamides; Z88.5 Allergy status to narcotic agent; Z90.49 Acquired absence of other specified parts of digestive tract; Z79.899 Other long term (current) drug therapy

== ENCOUNTER → 2022-04-17 | Outpatient (CLI) | payer BC ==
[~2022-04-17] MED LIST changes: +POTA10CA32 PO
[2022-04-17 15:12] LABS: ALBUMIN 3.2 GM/DL (3.2-5.2); ALT/SGPT 19 U/L (12-78); BILIRUBIN,TOTAL 0.3 MG/DL (0.2-1.0); BLOOD UREA NITROGEN 11 MG/DL (7-18); CARBON DIOXIDE LEVEL 32 MEQ/L (21-32); CHLORIDE LEVEL 97 MEQ/L (98-107); CREATININE FOR GFR 0.77 MG/DL (0.55-1.30); GLOMERULAR FILTRATION RATE > 60.0 (>58); GLUCOSE, FASTING 81 MG/DL (70-100); POTASSIUM SERUM 2.4 MEQ/L (3.5-5.1); SODIUM LEVEL 139 MEQ/L (136-145); TOTAL PROTEIN 6.3 GM/DL (6.4-8.2)
== END ==
LOC: M PLALAB 12:24
DX: E87.6 Hypokalemia (principal)

== ENCOUNTER 2022-04-24 17:48 | Emergency (ER) | payer BC ==
[~2022-04-24] VITALS: Ht 157.5 cm; Wt 54.5 kg
[~2022-04-24 17:48] MED LIST changes: +AMIL5TAB4 PO; +DEPA250T2 PO; +POTA10CA32 PO; +POTA20PW PO
[2022-04-24] MEDS ORDERED: POTA-151 PO (18:35)
[2022-04-24] MEDS ORDERED: LORazepam 1 MG TAB PO ONE (20:10)
[2022-04-24] MEDS ORDERED: ACETAMINOPHEN TAB 650MG DOSE (2X325MG) PO ONE (20:35)
[2022-04-24 22:35] VITALS: BP 113/65
== END 2022-04-24 22:36 | disposition home or self-care (01) ==
LOC: EDBD 17:48 → M ED 17:48
DX: F41.9 Anxiety disorder, unspecified (principal); F32.A Depression, unspecified; E87.6 Hypokalemia; Z98.84 Bariatric surgery status; Z88.0 Allergy status to penicillin; Z88.1 Allergy status to other antibiotic agents; Z88.2 Allergy status to sulfonamides; Z88.5 Allergy status to narcotic agent; J30.89 Other allergic rhinitis; Z79.899 Other long term (current) drug therapy

== ENCOUNTER → 2022-05-04 | Outpatient (CLI) | payer BC ==
[~2022-05-04] MED LIST changes: +POTA-151 PO
[2022-05-04 12:59] LABS: ALBUMIN 2.8 GM/DL (3.2-5.2); ALT/SGPT 27 U/L (12-78); BILIRUBIN,TOTAL 0.2 MG/DL (0.2-1.0); BLOOD UREA NITROGEN 11 MG/DL (7-18); CALCIUM LEVEL 8.9 MG/DL (8.5-10.1); CARBON DIOXIDE LEVEL 31 MEQ/L (21-32); CHLORIDE LEVEL 108 MEQ/L (98-107); CREATININE FOR GFR 0.71 MG/DL (0.55-1.30); GLOMERULAR FILTRATION RATE > 60.0 (>58); GLUCOSE, FASTING 77 MG/DL (70-100); MAGNESIUM LEVEL 2.2 MG/DL (1.8-2.4); POTASSIUM SERUM 4.6 MEQ/L (3.5-5.1); SODIUM LEVEL 141 MEQ/L (136-145); TOTAL PROTEIN 6.3 GM/DL (6.4-8.2)
== END ==
LOC: M PLALAB 08:56
PROVIDERS: ATTEND Family Medicine
DX: E87.6 Hypokalemia (principal); E88.09 Other disorders of plasma-protein metabolism, not elsewhere classified

== ENCOUNTER → 2022-05-04 | Outpatient (CLI) | payer BC ==
[2022-05-04 12:23] LABS: BASO % 0.7 % (0.0-1.0); EOS # 0.3 10^3/uL (0.0-0.5); EOS % 5.1 % (0.0-3.0); HEMATOCRIT 34.5 % (36.0-47.0); HEMOGLOBIN 10.9 g/dl (12.0-15.5); LYMPH # 1.3 10^3/uL (1.5-5.0); LYMPH % 23.3 % (24.0-44.0); MEAN CORPUSCULAR HEMOGLOBIN 29.9 pg (27.0-33.0); MEAN CORPUSCULAR HGB CONC 31.6 g/dl (32.0-36.5); MEAN CORPUSCULAR VOLUME 94.5 fl (80.0-96.0); MONO # 0.5 10^3/uL (0.0-0.8); MONO % 9.4 % (2.0-8.0); NEUTROPHILS # 3.3 10^3/uL (1.5-8.5); NEUTROPHILS % 61.1 % (36.0-66.0); PLATELET COUNT, AUTOMATED 273 10^3/uL (150-450); RED BLOOD COUNT 3.65 10^6/uL (4.00-5.40); WHITE BLOOD COUNT 5.5 10^3/uL (4.0-10.0)
[2022-05-04 13:01] LABS: ALBUMIN 2.8 GM/DL (3.2-5.2); ALT/SGPT 29 U/L (12-78); BILIRUBIN,TOTAL 0.2 MG/DL (0.2-1.0); BLOOD UREA NITROGEN 11 MG/DL (7-18); CALCIUM LEVEL 8.6 MG/DL (8.5-10.1); CARBON DIOXIDE LEVEL 30 MEQ/L (21-32); CHLORIDE LEVEL 108 MEQ/L (98-107); CREATININE FOR GFR 0.68 MG/DL (0.55-1.30); GLOMERULAR FILTRATION RATE > 60.0 (>58); GLUCOSE, FASTING 77 MG/DL (70-100); MAGNESIUM LEVEL 2.3 MG/DL (1.8-2.4); POTASSIUM SERUM 5.1 MEQ/L (3.5-5.1); SODIUM LEVEL 142 MEQ/L (136-145); TOTAL PROTEIN 5.9 GM/DL (6.4-8.2); VALPROIC ACID (DEPAKOTE) 18.3 UG/ML (50.0-100.0)
== END ==
LOC: M PLALAB 08:54
PROVIDERS: ATTEND Psychiatry & Neurology Neurology
DX: R51.9 Headache, unspecified (principal)

== ENCOUNTER 2022-07-17 17:53 | Emergency (ER) | payer BC ==
[~2022-07-17] VITALS: Ht 157.5 cm; Wt 64.9 kg
[~2022-07-17 17:53] MED LIST changes: -MAXA10TA14 PO; +RIZA10TA64 PO
[2022-07-17] MEDS ORDERED: EXCETAB32 PO (18:10)
[2022-07-17] MEDS ORDERED: FURO20TA2 (18:10)
[2022-07-17 20:16] LABS: BASO # 0.1 10^3/uL (0.0-0.2); BASO % 0.7 % (0.0-1.0); EOS # 0.3 10^3/uL (0.0-0.5); EOS % 3.2 % (0.0-3.0); HEMATOCRIT 29.1 % (36.0-47.0); HEMOGLOBIN 8.9 g/dl (12.0-15.5); LYMPH # 2.4 10^3/uL (1.5-5.0); LYMPH % 27.5 % (24.0-44.0); MEAN CORPUSCULAR HEMOGLOBIN 27.1 pg (27.0-33.0); MEAN CORPUSCULAR HGB CONC 30.6 g/dl (32.0-36.5); MEAN CORPUSCULAR VOLUME 88.7 fl (80.0-96.0); MONO # 0.6 10^3/uL (0.0-0.8); MONO % 6.7 % (2.0-8.0); NEUTROPHILS # 5.4 10^3/uL (1.5-8.5); NEUTROPHILS % 61.7 % (36.0-66.0); PLATELET COUNT, AUTOMATED 337 10^3/uL (150-450); RED BLOOD COUNT 3.28 10^6/uL (4.00-5.40); WHITE BLOOD COUNT 8.7 10^3/uL (4.0-10.0)
[2022-07-17 20:45] LABS: ERYTHROCYTE SEDIMENTATION RATE 22 mm/hr (0-20)
[2022-07-17 20:52] LABS: CPK CREATINE PHOSPHOKINASE 154 U/L (26-192)
[2022-07-17 20:54] LABS: ALT/SGPT 26 U/L (12-78); BILIRUBIN,DIRECT < 0.1 MG/DL (0.0-0.2); BILIRUBIN,TOTAL 0.2 MG/DL (0.2-1.0); BLOOD UREA NITROGEN 21 MG/DL (7-18); CALCIUM LEVEL 8.8 MG/DL (8.5-10.1); CARBON DIOXIDE LEVEL 28 MEQ/L (21-32); CHLORIDE LEVEL 107 MEQ/L (98-107); CREATININE FOR GFR 0.96 MG/DL (0.55-1.30); FREE T4 0.95 NG/DL (0.76-1.46); GLOMERULAR FILTRATION RATE > 60.0 (>58); GLUCOSE, FASTING 84 MG/DL (70-100); LIPASE 217 U/L (73-393); NT-PRO BNP 140 PG/ML (<125); POTASSIUM SERUM 3.6 MEQ/L (3.5-5.1); SODIUM LEVEL 142 MEQ/L (136-145); THYROID STIMULATING HORMONE 0.641 uIU/ML (0.358-3.740)
[2022-07-17] MEDS ORDERED: POTASSIUM CHLORIDE 10MEQ SR TABLET PO ONE (21:30)
[2022-07-17] MEDS ORDERED: ACETAMINOPHEN 500 MG TAB PO ONE (21:35)
[2022-07-17] MEDS ORDERED: FERR324T21 PO (21:57)
[2022-07-17 22:18] VITALS: BP 125/56
== END 2022-07-17 22:37 | disposition home or self-care (01) ==
LOC: M ED 17:53
DX: R60.0 Localized edema (principal); E87.6 Hypokalemia; D50.9 Iron deficiency anemia, unspecified; I49.8 Other specified cardiac arrhythmias; R25.2 Cramp and spasm; G43.909 Migraine, unspecified, not intractable, without status migrainosus; K57.92 Diverticulitis of intestine, part unspecified, without perforation or abscess without bleeding; Z88.0 Allergy status to penicillin; Z88.2 Allergy status to sulfonamides; Z88.5 Allergy status to narcotic agent; Z87.42 Personal history of other diseases of the female genital tract

== ENCOUNTER 2022-08-16 17:08 | Emergency (ER) | payer BC ==
[~2022-08-16] VITALS: Ht 157.5 cm; Wt 61.9 kg
[~2022-08-16 17:08] MED LIST changes: +EXCETAB32 PO; +FURO20TA2
[2022-08-16] MEDS ORDERED: NS 1,000 ML IV ONE (18:15)
[2022-08-16] MEDS ORDERED: ONDANSETRON 4MG 2ML VIAL IV ONE (18:15)
[2022-08-16] MEDS ORDERED: KETOROLAC 30 MG/ML 1ML VIAL IV ONE (18:15)
[2022-08-16 18:35] LABS: BASO % 0.7 % (0.0-1.0); EOS # 0.2 10^3/uL (0.0-0.5); EOS % 2.8 % (0.0-3.0); HEMATOCRIT 31.9 % (36.0-47.0); HEMOGLOBIN 10.1 g/dl (12.0-15.5); LYMPH # 1.8 10^3/uL (1.5-5.0); LYMPH % 32.1 % (24.0-44.0); MEAN CORPUSCULAR HEMOGLOBIN 27.8 pg (27.0-33.0); MEAN CORPUSCULAR HGB CONC 31.7 g/dl (32.0-36.5); MEAN CORPUSCULAR VOLUME 87.9 fl (80.0-96.0); MONO # 0.4 10^3/uL (0.0-0.8); MONO % 7.8 % (2.0-8.0); NEUTROPHILS # 3.2 10^3/uL (1.5-8.5); NEUTROPHILS % 56.2 % (36.0-66.0); PLATELET COUNT, AUTOMATED 261 10^3/uL (150-450); RED BLOOD COUNT 3.63 10^6/uL (4.00-5.40); WHITE BLOOD COUNT 5.7 10^3/uL (4.0-10.0)
[2022-08-16 18:48] LABS: ABG BASE EXCESS -3.9 (-2.0-2.0); ABG HCO3 19.5 MEQ/L (22.0-26.0); ABG O2 SATURATION 98.2 % (95.0-99.0); ABG PARTIAL PRESSURE O2 107.6 mmHg (75.0-100.0); ABG STANDARD HCO3 21.2 MEQ/L (22.0-26.0); ABG TOTAL CO2 20.4 MEQ/L (22.0-29.0); ABG pH (ARTERIAL) 7.431 UNITS (7.350-7.450)
[2022-08-16] MEDS ORDERED: POTASSIUM CHLORIDE 10MEQ SR TABLET PO ONE (18:50)
[2022-08-16 19:37] LABS: AMPHETAMINES LEVEL URINE NEGATIVE (NEGATIVE); BARBITURATES URINE NEGATIVE (NEGATIVE); BENZODIAZEPINES URINE NEGATIVE (NEGATIVE); CANNABINOIDS URINE NEGATIVE (NEGATIVE); COCAINE METABOLITE URINE NEGATIVE (NEGATIVE); METHADONE URINE NEGATIVE (NEGATIVE); OPIATES URINE NEGATIVE (NEGATIVE); PHENCYCLIDINE URINE NEGATIVE (NEGATIVE)
[2022-08-16 19:49] LABS: ACETAMINOPHEN LEVEL < 2.0 UG/ML (10.0-30.0); ALBUMIN 2.8 GM/DL (3.2-5.2); ALT/SGPT 27 U/L (12-78); BILIRUBIN,DIRECT < 0.1 MG/DL (0.0-0.2); BILIRUBIN,TOTAL 0.3 MG/DL (0.2-1.0); C REACTIVE PROTEIN QUANTITATIV 1.49 MG/DL (0.00-0.30); ETHYL ALCOHOL (ETHANOL) 0.025 % (0.000-0.010); LIPASE 101 U/L (73-393); MAGNESIUM LEVEL 1.9 MG/DL (1.8-2.4); POTASSIUM SERUM 3.2 MEQ/L (3.5-5.1); SALICYLATE LEVEL < 1.7 MG/DL (5.0-30.0); THYROID STIMULATING HORMONE 0.435 uIU/ML (0.358-3.740); TOTAL PROTEIN 5.9 GM/DL (6.4-8.2)
[2022-08-16] MEDS ORDERED: ISOVUE-370 76% 100ML VIAL As Ordered ONE (19:55)
[2022-08-16 21:07] VITALS: BP 121/64
== END 2022-08-16 21:10 | disposition home or self-care (01) ==
LOC: M ED 17:08
DX: U07.1 COVID-19 (principal); R41.0 Disorientation, unspecified; R44.3 Hallucinations, unspecified; F41.9 Anxiety disorder, unspecified; D64.9 Anemia, unspecified; K57.92 Diverticulitis of intestine, part unspecified, without perforation or abscess without bleeding; G43.909 Migraine, unspecified, not intractable, without status migrainosus; Z87.42 Personal history of other diseases of the female genital tract; Z98.84 Bariatric surgery status; J30.2 Other seasonal allergic rhinitis; Z88.0 Allergy status to penicillin; Z88.5 Allergy status to narcotic agent; Z88.2 Allergy status to sulfonamides; Z79.899 Other long term (current) drug therapy; Z79.82 Long term (current) use of aspirin
CPT/HCPCS: 36600; 70450; 71046; 71275; 80047; 80076; 80143; 80307; 81002; 82077; 82140; 82803; 83605; 83690; 83735; 84132; 84443; 84484; 85025; 85379; 86140; 87040; 93005; 96361; 96374; 96375; 99284; J1885; J2405

== ENCOUNTER 2023-01-05 18:43 | Inpatient (IN) | payer BC ==
[~2023-01-05] VITALS: Ht 157.5 cm; Wt 61.5 kg
[~2023-01-05 18:43] MED LIST changes: -LORA1TAB4 PO; -TOPI100T9; -TOPI100T9 PO; -VIT1TAB.8 PO
[2023-01-05] MEDS ORDERED: TOPI100T9 (18:57)
[2023-01-05] MEDS ORDERED: ONDANSETRON 4MG 2ML VIAL IV ONE (19:55)
[2023-01-05] MEDS ORDERED: METOCLOPRAMIDE INJ 10MG/2ML VIAL IV ONE (20:05)
[2023-01-05 20:21] LABS: BLOOD UREA NITROGEN 10 MG/DL (9-23); CALCIUM LEVEL 8.9 MG/DL (8.5-10.1); CARBON DIOXIDE LEVEL 39 MMOL/L (20-31); CHLORIDE LEVEL 94 MMOL/L (98-107); CREATININE FOR GFR 0.92 MG/DL (0.55-1.30); GLOMERULAR FILTRATION RATE > 60.0 (>58); GLUCOSE, FASTING 88 MG/DL (60-100); MAGNESIUM LEVEL 3.2 MG/DL (1.8-2.4); POTASSIUM SERUM 2.3 MMOL/L (3.5-5.1); SODIUM LEVEL 139 MMOL/L (136-145)
[2023-01-05] MEDS ORDERED: KCL 10MEQ/100ML SWI (KRUN) 10 MEQ in IV 1 EA IV ONE (22:35)
[2023-01-05] MEDS ORDERED: POTASSIUM CHLORIDE 10MEQ SR TABLET PO ONE (23:00)
[2023-01-05] MEDS ORDERED: ACETAMINOPHEN TAB 650MG DOSE (2X325MG) PO PRN (23:15)
[2023-01-06] MEDS ORDERED: VIT1TAB.8 PO (00:14)
[2023-01-06] MEDS ORDERED: FURO20TA2 PO (00:14)
[2023-01-06] MEDS ORDERED: LORA1TAB4 PO (00:14)
[2023-01-06] MEDS ORDERED: TOPI100T9 PO (00:14)
[2023-01-06 00:15] VITALS: BP 107/71
[2023-01-06] MEDS ORDERED: LEXA1TAB PO (00:15)
[2023-01-06] MEDS ORDERED: HOME MED LIST COMPLETE! XX SCH (00:20)
[2023-01-06] MEDS ORDERED: POTASSIUM CHLORIDE 10MEQ SR TABLET PO ONE ×3 (00:30→21:00)
[2023-01-06 01:23] LABS: ABG BASE EXCESS 10.7 (-2.0-2.0); ABG HCO3 34.3 MEQ/L (22.0-26.0); ABG O2 SATURATION 97.7 % (95.0-99.0); ABG PARTIAL PRESSURE CO2 41.2 mmHg (35.0-45.0); ABG PARTIAL PRESSURE O2 106.3 mmHg (75.0-100.0); ABG STANDARD HCO3 34.5 MEQ/L (22.0-26.0); ABG TOTAL CO2 35.5 MEQ/L (22.0-29.0); ABG pH (ARTERIAL) 7.538 UNITS (7.350-7.450)
[2023-01-06] MEDS: AMITRIPTYLINE 50 MG TAB PO SCH ×2 (01:48→20:16)
[2023-01-06] MEDS: MONTELUKAST 10 MG TAB PO SCH ×2 (01:48→20:16)
[2023-01-06] MEDS: busPIRone 5 MG TAB PO SCH ×3 (01:48→20:16)
[2023-01-06] MEDS: TOPIRAMATE (TopAMAX) 100 MG TAB PO SCH ×3 (01:49→20:16)
[2023-01-06 02:20] LABS: ALBUMIN 3.8 G/DL (3.2-5.2)
[2023-01-06] MEDS: PRAMIPEXOLE 0.25 MG TAB PO SCH ×2 (02:50→20:19)
[2023-01-06] MEDS: buPROPion **SR TABLET** (ZYBAN) 150MG PO SCH ×3 (02:51→20:15)
[2023-01-06] MEDS: POTASSIUM CHLORIDE 10MEQ SR TABLET PO SCH ×2 (04:29→06:14)
[2023-01-06 06:00] VITALS: BP 104/69
[2023-01-06 07:27] LABS: BLOOD UREA NITROGEN 14 MG/DL (9-23); CALCIUM LEVEL 8.4 MG/DL (8.5-10.1); CARBON DIOXIDE LEVEL 31 MMOL/L (20-31); CHLORIDE LEVEL 100 MMOL/L (98-107); CREATININE FOR GFR 0.98 MG/DL (0.55-1.30); GLOMERULAR FILTRATION RATE > 60.0 (>58); GLUCOSE, FASTING 83 MG/DL (60-100); MAGNESIUM LEVEL 2.4 MG/DL (1.8-2.4); POTASSIUM SERUM 2.9 MMOL/L (3.5-5.1); SODIUM LEVEL 139 MMOL/L (136-145)
[2023-01-06] MEDS: ESCITALOPRAM OXALATE 10 MG TAB (LEXAPRO) PO SCH (08:21)
[2023-01-06 12:00] LABS: POTASSIUM RANDOM URINE 9.1 MMOL/L
[2023-01-06 12:09] LABS: CREATININE,RANDOM URINE 35.8 MG/DL
[2023-01-06] MEDS ORDERED: CETIRIZINE (ZyrTEC) 10 MG TAB PO PRN (13:10)
[2023-01-06] MEDS ORDERED: ONDANSETRON 4MG ORAL DISINTEGRATING TAB PO PRN (13:10)
[2023-01-06] MEDS ORDERED: zolPIDEM TARTRATE 5 MG TAB PO PRN (13:10)
[2023-01-06] MEDS: SUMAtriptan SUCCINATE 25 MG TAB PO PRN (13:56)
[2023-01-06 14:00] VITALS: BP 94/68
[2023-01-06] MEDS ORDERED: NS 250 ML IV SCH (15:05)
[2023-01-06] MEDS: KCL 10MEQ/100ML SWI (KRUN) 10 MEQ in IV 1 EA IV SCH ×3 (15:07→22:24)
[2023-01-06] MEDS: LORazepam 1 MG TAB PO PRN (20:16)
[2023-01-06 21:06] VITALS: BP 98/65
[2023-01-06] MEDS ORDERED: NS 1,000 ML IV SCH (22:55)
[2023-01-07] MEDS: KCL 10MEQ/100ML SWI (KRUN) 10 MEQ in IV 1 EA IV SCH (00:40)
[2023-01-07 03:15] LABS: CHLORIDE,RANDOM URINE 19.99999 MMOL/L
[2023-01-07 05:45] VITALS: BP 97/64
[2023-01-07 07:10] LABS: BASO # 0.1 10^3/uL (0.0-0.2); BASO % 0.6 % (0.0-1.0); EOS # 0.3 10^3/uL (0.0-0.5); EOS % 3.8 % (0.0-3.0); HEMATOCRIT 32.8 % (36.0-47.0); HEMOGLOBIN 10.3 g/dl (12.0-15.5); LYMPH # 2.2 10^3/uL (1.5-5.0); LYMPH % 26.3 % (24.0-44.0); MEAN CORPUSCULAR HEMOGLOBIN 26.8 pg (27.0-33.0); MEAN CORPUSCULAR HGB CONC 31.4 g/dl (32.0-36.5); MEAN CORPUSCULAR VOLUME 85.2 fl (80.0-96.0); MONO # 0.6 10^3/uL (0.0-0.8); NEUTROPHILS # 5.1 10^3/uL (1.5-8.5); NEUTROPHILS % 61.9 % (36.0-66.0); PLATELET COUNT, AUTOMATED 299 10^3/uL (150-450); RED BLOOD COUNT 3.85 10^6/uL (4.00-5.40); WHITE BLOOD COUNT 8.2 10^3/uL (4.0-10.0)
[2023-01-07 07:30] LABS: ALBUMIN 2.6 G/DL (3.2-5.2); ALKALINE PHOSPHATASE 46 U/L (46-116); ALT/SGPT 18 U/L (7.0-40); AST/SGOT 15 U/L (<34); BILIRUBIN,TOTAL < 0.2 MG/DL (0.3-1.2); BLOOD UREA NITROGEN 14 MG/DL (9-23); CALCIUM LEVEL 8.3 MG/DL (8.5-10.1); CARBON DIOXIDE LEVEL 29 MMOL/L (20-31); CHLORIDE LEVEL 105 MMOL/L (98-107); CREATININE FOR GFR 0.89 MG/DL (0.55-1.30); GLOMERULAR FILTRATION RATE > 60.0 (>58); GLUCOSE, FASTING 84 MG/DL (60-100); MAGNESIUM LEVEL 1.9 MG/DL (1.8-2.4); SODIUM LEVEL 142 MMOL/L (136-145)
[2023-01-07] MEDS ORDERED: POTASSIUM CHLORIDE 10MEQ SR TABLET PO ONE (07:45)
[2023-01-07] MEDS ORDERED: KCL 10MEQ/100ML SWI (KRUN) 10 MEQ in IV 1 EA IV ONE (08:00)
[2023-01-07] MEDS: busPIRone 5 MG TAB PO SCH ×2 (09:05→20:13)
[2023-01-07] MEDS: TOPIRAMATE (TopAMAX) 100 MG TAB PO SCH ×2 (09:05→20:11)
[2023-01-07] MEDS: buPROPion **SR TABLET** (ZYBAN) 150MG PO SCH ×2 (09:05→20:12)
[2023-01-07] MEDS: ESCITALOPRAM OXALATE 10 MG TAB (LEXAPRO) PO SCH (09:06)
[2023-01-07] MEDS: LORazepam 1 MG TAB PO PRN ×3 (09:10→23:11)
[2023-01-07 13:16] LABS: POTASSIUM RANDOM URINE 5.8 MMOL/L
[2023-01-07] MEDS: SUMAtriptan SUCCINATE 25 MG TAB PO PRN (13:48)
[2023-01-07 14:00] VITALS: BP 128/80
[2023-01-07] MEDS: POTASSIUM CHLORIDE 10MEQ SR TABLET PO SCH ×2 (15:31→20:11)
[2023-01-07] MEDS: PRAMIPEXOLE 0.25 MG TAB PO SCH (20:11)
[2023-01-07] MEDS: MONTELUKAST 10 MG TAB PO SCH (20:11)
[2023-01-07] MEDS: AMITRIPTYLINE 50 MG TAB PO SCH (20:12)
[2023-01-07 21:44] VITALS: BP 101/73
[2023-01-07 22:00] VITALS: BP 101/73
[2023-01-08 05:45] VITALS: BP 103/69
[2023-01-08] MEDS: LORazepam 1 MG TAB PO PRN ×3 (06:55→21:39)
[2023-01-08 06:56] LABS: BASO # 0.1 10^3/uL (0.0-0.2); BASO % 0.7 % (0.0-1.0); EOS # 0.3 10^3/uL (0.0-0.5); EOS % 3.7 % (0.0-3.0); HEMATOCRIT 35.1 % (36.0-47.0); HEMOGLOBIN 10.9 g/dl (12.0-15.5); LYMPH # 2.4 10^3/uL (1.5-5.0); LYMPH % 27.6 % (24.0-44.0); MEAN CORPUSCULAR HEMOGLOBIN 26.3 pg (27.0-33.0); MEAN CORPUSCULAR HGB CONC 31.1 g/dl (32.0-36.5); MEAN CORPUSCULAR VOLUME 84.8 fl (80.0-96.0); MONO # 0.5 10^3/uL (0.0-0.8); MONO % 5.9 % (2.0-8.0); NEUTROPHILS # 5.3 10^3/uL (1.5-8.5); NEUTROPHILS % 61.8 % (36.0-66.0); PLATELET COUNT, AUTOMATED 321 10^3/uL (150-450); RED BLOOD COUNT 4.14 10^6/uL (4.00-5.40); WHITE BLOOD COUNT 8.6 10^3/uL (4.0-10.0)
[2023-01-08 07:30] LABS: ALBUMIN 2.8 G/DL (3.2-5.2); ALKALINE PHOSPHATASE 52 U/L (46-116); ALT/SGPT 20 U/L (7.0-40); AST/SGOT 16 U/L (<34); BILIRUBIN,TOTAL < 0.2 MG/DL (0.3-1.2); BLOOD UREA NITROGEN 12 MG/DL (9-23); CALCIUM LEVEL 8.5 MG/DL (8.5-10.1); CARBON DIOXIDE LEVEL 26 MMOL/L (20-31); CHLORIDE LEVEL 107 MMOL/L (98-107); CREATININE FOR GFR 0.88 MG/DL (0.55-1.30); GLOMERULAR FILTRATION RATE > 60.0 (>58); GLUCOSE, FASTING 87 MG/DL (60-100); MAGNESIUM LEVEL 1.7 MG/DL (1.8-2.4); POTASSIUM SERUM 3.1 MMOL/L (3.5-5.1); SODIUM LEVEL 141 MMOL/L (136-145); TOTAL PROTEIN 5.4 G/DL (5.7-8.2)
[2023-01-08] MEDS: buPROPion **SR TABLET** (ZYBAN) 150MG PO SCH ×2 (07:54→21:38)
[2023-01-08] MEDS: busPIRone 5 MG TAB PO SCH ×2 (07:54→21:38)
[2023-01-08] MEDS: POTASSIUM CHLORIDE 10MEQ SR TABLET PO SCH ×3 (07:54→21:38)
[2023-01-08] MEDS: ESCITALOPRAM OXALATE 10 MG TAB (LEXAPRO) PO SCH (07:55)
[2023-01-08] MEDS: MAGNESIUM OXIDE 400MG TAB (MAG-OX) PO SCH ×3 (07:55→21:38)
[2023-01-08] MEDS: TOPIRAMATE (TopAMAX) 100 MG TAB PO SCH ×2 (07:56→21:38)
[2023-01-08] MEDS: KCL 10MEQ/100ML SWI (KRUN) 10 MEQ in IV 1 EA IV SCH ×2 (07:56→09:09)
[2023-01-08 14:00] VITALS: BP 106/77
[2023-01-08 15:04] LABS: POTASSIUM RANDOM URINE 8.4 MMOL/L
[2023-01-08] MEDS: ENOXAPARIN 40MG/0.4ML SYRINGE (J1650 PER 10MG) SC SCH (15:09)
[2023-01-08 21:32] VITALS: BP 103/70
[2023-01-08] MEDS: AMITRIPTYLINE 50 MG TAB PO SCH (21:38)
[2023-01-08] MEDS: PRAMIPEXOLE 0.25 MG TAB PO SCH (21:38)
[2023-01-08] MEDS: MONTELUKAST 10 MG TAB PO SCH (21:39)
[2023-01-09 06:00] VITALS: BP 92/61
[2023-01-09 06:07] LABS: BASO # 0.1 10^3/uL (0.0-0.2); BASO % 0.5 % (0.0-1.0); EOS # 0.4 10^3/uL (0.0-0.5); EOS % 3.7 % (0.0-3.0); HEMATOCRIT 32.6 % (36.0-47.0); HEMOGLOBIN 10.2 g/dl (12.0-15.5); LYMPH # 2.4 10^3/uL (1.5-5.0); LYMPH % 24.4 % (24.0-44.0); MEAN CORPUSCULAR HGB CONC 31.3 g/dl (32.0-36.5); MEAN CORPUSCULAR VOLUME 86.2 fl (80.0-96.0); MONO # 0.6 10^3/uL (0.0-0.8); MONO % 6.3 % (2.0-8.0); NEUTROPHILS # 6.4 10^3/uL (1.5-8.5); NEUTROPHILS % 64.8 % (36.0-66.0); PLATELET COUNT, AUTOMATED 323 10^3/uL (150-450); RED BLOOD COUNT 3.78 10^6/uL (4.00-5.40); WHITE BLOOD COUNT 9.9 10^3/uL (4.0-10.0)
[2023-01-09 06:47] LABS: ALBUMIN 2.6 G/DL (3.2-5.2); ALKALINE PHOSPHATASE 46 U/L (46-116); ALT/SGPT 18 U/L (7.0-40); AST/SGOT 14 U/L (<34); BILIRUBIN,TOTAL < 0.2 MG/DL (0.3-1.2); BLOOD UREA NITROGEN 19 MG/DL (9-23); CALCIUM LEVEL 8.5 MG/DL (8.5-10.1); CARBON DIOXIDE LEVEL 26 MMOL/L (20-31); CHLORIDE LEVEL 111 MMOL/L (98-107); CREATININE FOR GFR 0.91 MG/DL (0.55-1.30); GLOMERULAR FILTRATION RATE > 60.0 (>58); GLUCOSE, FASTING 90 MG/DL (60-100); MAGNESIUM LEVEL 1.8 MG/DL (1.8-2.4); POTASSIUM SERUM 3.8 MMOL/L (3.5-5.1); SODIUM LEVEL 143 MMOL/L (136-145); TOTAL PROTEIN 5.2 G/DL (5.7-8.2)
[2023-01-09] MEDS: ENOXAPARIN 40MG/0.4ML SYRINGE (J1650 PER 10MG) SC SCH (09:45)
[2023-01-09] MEDS: MAGNESIUM OXIDE 400MG TAB (MAG-OX) PO SCH (09:46)
[2023-01-09] MEDS: POTASSIUM CHLORIDE 10MEQ SR TABLET PO SCH (09:46)
[2023-01-09] MEDS: busPIRone 5 MG TAB PO SCH (09:46)
[2023-01-09] MEDS: ESCITALOPRAM OXALATE 10 MG TAB (LEXAPRO) PO SCH (09:47)
[2023-01-09] MEDS: TOPIRAMATE (TopAMAX) 100 MG TAB PO SCH (09:47)
[2023-01-09] MEDS: buPROPion **SR TABLET** (ZYBAN) 150MG PO SCH (09:47)
[2023-01-09] MEDS ORDERED: POTA-136 PO (10:06)
[2023-01-09] MEDS ORDERED: MAGN400T2 PO (10:06)
[2023-01-09] MEDS: LORazepam 1 MG TAB PO PRN (10:57)
== END 2023-01-09 13:06 | disposition home or self-care (01) | DRG 425 ==
LOC: M ED 18:43 → M ED INP 23:10 → UNDOADMIN 23:10 → M ED INP 23:11 → M MSPAV 01-06 00:11
PROVIDERS: ADMIT Internal Medicine; ATTEND Student in an Organized Health Care Education/Training Program
DX: E87.6 Hypokalemia (principal); E87.3 Alkalosis; G43.909 Migraine, unspecified, not intractable, without status migrainosus; K21.9 Gastro-esophageal reflux disease without esophagitis; J30.9 Allergic rhinitis, unspecified; Z79.899 Other long term (current) drug therapy; Z88.0 Allergy status to penicillin; Z88.2 Allergy status to sulfonamides; Z88.5 Allergy status to narcotic agent; D64.9 Anemia, unspecified; K57.90 Diverticulosis of intestine, part unspecified, without perforation or abscess without bleeding; Z90.49 Acquired absence of other specified parts of digestive tract; Z98.84 Bariatric surgery status; F41.9 Anxiety disorder, unspecified; F32.A Depression, unspecified; R60.0 Localized edema; G25.81 Restless legs syndrome; E87.1 Hypo-osmolality and hyponatremia

== ENCOUNTER → 2023-01-05 | Outpatient (CLI) | payer BC ==
[~2023-01-05] MED LIST changes: -FURO20TA2; +LORA1TAB4 PO; +MONT-5 PO; -POTA10CA32 PO; +POTA10CA33 PO; -SING10TA32 PO; +TOPI100T9; +TOPI100T9 PO; +VIT1TAB.8 PO
[2023-01-05 08:23] LABS: BASO # 0.1 10^3/uL (0.0-0.2); BASO % 0.6 % (0.0-1.0); EOS # 0.2 10^3/uL (0.0-0.5); HEMATOCRIT 37.7 % (36.0-47.0); HEMOGLOBIN 12.2 g/dl (12.0-15.5); LYMPH # 1.3 10^3/uL (1.5-5.0); LYMPH % 15.7 % (24.0-44.0); MEAN CORPUSCULAR HEMOGLOBIN 26.9 pg (27.0-33.0); MEAN CORPUSCULAR HGB CONC 32.4 g/dl (32.0-36.5); MEAN CORPUSCULAR VOLUME 83.2 fl (80.0-96.0); MONO # 0.4 10^3/uL (0.0-0.8); MONO % 5.3 % (2.0-8.0); NEUTROPHILS # 6.4 10^3/uL (1.5-8.5); NEUTROPHILS % 76.2 % (36.0-66.0); PLATELET COUNT, AUTOMATED 346 10^3/uL (150-450); RED BLOOD COUNT 4.53 10^6/uL (4.00-5.40); WHITE BLOOD COUNT 8.3 10^3/uL (4.0-10.0)
[2023-01-05 08:36] LABS: ERYTHROCYTE SEDIMENTATION RATE 14 mm/hr (0-20)
[2023-01-05 08:59] LABS: RHEUMATOID FACTOR QUANT 4.2 IU/ML (<14)
[2023-01-05 09:27] LABS: ALBUMIN 3.3 G/DL (3.2-5.2); ALKALINE PHOSPHATASE 58 U/L (46-116); ALT/SGPT 24 U/L (7.0-40); AST/SGOT 21 U/L (<34); BILIRUBIN,TOTAL 0.4 MG/DL (0.3-1.2); BLOOD UREA NITROGEN 12 MG/DL (9-23); CALCIUM LEVEL 8.8 MG/DL (8.5-10.1); CARBON DIOXIDE LEVEL 34 MMOL/L (20-31); CHLORIDE LEVEL 97 MMOL/L (98-107); CREATININE FOR GFR 0.96 MG/DL (0.55-1.30); FOLATE 10.4 NG/ML (>5.4); GLOMERULAR FILTRATION RATE > 60.0 (>58); GLUCOSE, FASTING 87 MG/DL (60-100); POTASSIUM SERUM 2.3 MMOL/L (3.5-5.1); SODIUM LEVEL 137 MMOL/L (136-145); THYROID STIMULATING HORMONE 2.599 uIU/ML (0.55-4.78); TOTAL PROTEIN 6.1 G/DL (5.7-8.2); VITAMIN B12 LEVEL 466 PG/ML (211-911)
== END ==
LOC: M LAB 07:25
PROVIDERS: ATTEND Psychiatry & Neurology Neurology
DX: R51.9 Headache, unspecified (principal)

== ENCOUNTER → 2023-01-18 | Outpatient (CLI) | payer BC ==
[~2023-01-18] MED LIST changes: +LORA1TAB4 PO; +MAGN400T2 PO; +TOPI100T9; +TOPI100T9 PO; +VIT1TAB.8 PO
[2023-01-18 18:37] LABS: APPEARANCE, URINE CLEAR (CLEAR); BACTERIA, URINE AUTO NEGATIVE (NEGATIVE); BILIRUBIN, URINE AUTO NEGATIVE (NEGATIVE); BLOOD, URINE BLOOD NEGATIVE (NEGATIVE); COLOR, URINE STRAW (YELLOW); GLUCOSE, URINE (UA) AUTO NEGATIVE (NEGATIVE); KETONE, URINE AUTO TRACE mg/dL (NEGATIVE); LEUKOCYTE ESTERASE, URINE AUTO NEGATIVE (NEGATIVE); NITRITE, URINE AUTO NEGATIVE (NEGATIVE); PROTEIN, URINE AUTO NEGATIVE (NEGATIVE); RBC, URINE AUTO 0 /HPF (0-3); SPECIFIC GRAVITY URINE AUTO 1.004 (1.002-1.035); SQUAMOUS EPITHELIAL CELL UR AU 0 /HPF (0-6); UROBILINOGEN, URINE AUTO 0.2 mg/dL (0.0-2.0); WBC, URINE AUTO 1 /HPF (0-3)
[2023-01-18 18:39] LABS: POTASSIUM RANDOM URINE 6.4 MMOL/L
[2023-01-18 18:48] LABS: BLOOD UREA NITROGEN 11 MG/DL (9-23); CALCIUM LEVEL 9.4 MG/DL (8.5-10.1); CARBON DIOXIDE LEVEL 27 MMOL/L (20-31); CHLORIDE LEVEL 111 MMOL/L (98-107); CREATININE FOR GFR 0.75 MG/DL (0.55-1.30); GLOMERULAR FILTRATION RATE > 60.0 (>58); GLUCOSE, FASTING 83 MG/DL (60-100); POTASSIUM SERUM 5.5 MMOL/L (3.5-5.1); SODIUM LEVEL 142 MMOL/L (136-145)
== END ==
LOC: M LAB 17:41
PROVIDERS: ATTEND Student in an Organized Health Care Education/Training Program
DX: E87.6 Hypokalemia (principal)

== ENCOUNTER → 2023-01-21 | Outpatient (CLI) | payer BC ==
[2023-01-21 18:08] LABS: CREATININE,RANDOM URINE < 13.0 MG/DL
[2023-01-21 18:35] LABS: ALBUMIN 3.1 G/DL (3.2-5.2); BLOOD UREA NITROGEN 9 MG/DL (9-23); CALCIUM LEVEL 8.7 MG/DL (8.5-10.1); CARBON DIOXIDE LEVEL 30 MMOL/L (20-31); CHLORIDE LEVEL 107 MMOL/L (98-107); CREATININE FOR GFR 0.72 MG/DL (0.55-1.30); GLOMERULAR FILTRATION RATE > 60.0 (>58); GLUCOSE, FASTING 81 MG/DL (60-100); PHOSPHORUS LEVEL 3.7 MG/DL (2.5-4.9); POTASSIUM SERUM 3.5 MMOL/L (3.5-5.1); SODIUM LEVEL 140 MMOL/L (136-145)
== END ==
LOC: M LAB 17:30
PROVIDERS: ATTEND Student in an Organized Health Care Education/Training Program
DX: E87.5 Hyperkalemia (principal)

== ENCOUNTER → 2023-01-29 | Outpatient (CLI) | payer BC ==
[2023-01-29 15:15] LABS: CALCIUM LEVEL 8.7 MG/DL (8.5-10.1); CREATININE FOR GFR 1.16 MG/DL (0.55-1.30); GLOMERULAR FILTRATION RATE 54.5 (>58); PHOSPHORUS LEVEL 3.5 MG/DL (2.5-4.9); POTASSIUM SERUM 4.7 MMOL/L (3.5-5.1)
== END ==
LOC: M LAB 14:19
PROVIDERS: ATTEND Student in an Organized Health Care Education/Training Program
DX: E87.6 Hypokalemia (principal)

== ENCOUNTER → 2023-03-15 | Outpatient (CLI) | payer BC ==
[~2023-03-15] MED LIST changes: +LORA1TAB23 PO; -LORA1TAB4 PO; -POTA10CA33 PO; +POTA10CA60 PO
== END ==
LOC: M OUTALCOH 09:42
PROVIDERS: ATTEND Psychiatry & Neurology Psychiatry
DX: Z01.89 Encounter for other specified special examinations (principal)

== ENCOUNTER 2023-03-27 17:12 | Inpatient (IN) | payer BC ==
[~2023-03-27] VITALS: Ht 157.5 cm; Wt 71.4 kg
[2023-03-27 17:53] LABS: HEMATOCRIT 30.4 % (36.0-47.0); HEMOGLOBIN 9.4 g/dl (12.0-15.5); MEAN CORPUSCULAR HEMOGLOBIN 25.4 pg (27.0-33.0); MEAN CORPUSCULAR HGB CONC 30.9 g/dl (32.0-36.5); MEAN CORPUSCULAR VOLUME 82.2 fl (80.0-96.0); PLATELET COUNT, AUTOMATED 358 10^3/uL (150-450); WHITE BLOOD COUNT 7.5 10^3/uL (4.0-10.0)
[2023-03-27 18:15] LABS: AMPHETAMINES LEVEL URINE NEGATIVE (NEGATIVE); BARBITURATES URINE NEGATIVE (NEGATIVE); BENZODIAZEPINES URINE NEGATIVE (NEGATIVE); CANNABINOIDS URINE NEGATIVE (NEGATIVE); COCAINE METABOLITE URINE NEGATIVE (NEGATIVE); METHADONE URINE NEGATIVE (NEGATIVE); OPIATES URINE NEGATIVE (NEGATIVE); PHENCYCLIDINE URINE NEGATIVE (NEGATIVE)
[2023-03-27 18:17] LABS: ETHYL ALCOHOL (ETHANOL) 0.035 % (0.000-0.010)
[2023-03-27 18:18] LABS: ACETAMINOPHEN LEVEL < 2.0 UG/ML (10.0-20.0); ALBUMIN 3.3 G/DL (3.2-5.2); ALKALINE PHOSPHATASE 56 U/L (46-116); ALT/SGPT 26 U/L (7.0-40); AST/SGOT 19 U/L (<34); BILIRUBIN,DIRECT < 0.1 MG/DL (<0.4); BILIRUBIN,TOTAL 0.2 MG/DL (0.3-1.2); BLOOD UREA NITROGEN 18 MG/DL (9-23); CALCIUM LEVEL 8.5 MG/DL (8.5-10.1); CARBON DIOXIDE LEVEL 22 MMOL/L (20-31); CHLORIDE LEVEL 110 MMOL/L (98-107); CREATININE FOR GFR 0.94 MG/DL (0.55-1.30); GLOMERULAR FILTRATION RATE > 60.0 (>58); GLUCOSE, FASTING 79 MG/DL (60-100); POTASSIUM SERUM 3.5 MMOL/L (3.5-5.1); SALICYLATE LEVEL < 3.0 MG/DL (<30); SODIUM LEVEL 141 MMOL/L (136-145); TOTAL PROTEIN 6.1 G/DL (5.7-8.2)
[2023-03-27 18:20] LABS: THYROID STIMULATING HORMONE 0.433 uIU/ML (0.55-4.78)
[2023-03-27] MEDS ORDERED: FURO20TA2 PO (18:22)
[2023-03-27] MEDS ORDERED: POTA20PW PO (18:22)
[2023-03-27] MEDS ORDERED: ACAM0.05 PO (18:22)
[2023-03-27] MEDS ORDERED: HOME MED LIST COMPLETE! XX SCH (18:25)
[2023-03-27] MEDS ORDERED: RIZATRIPTAN MLT 10 MG TAB SL PRN (20:40)
[2023-03-27] MEDS ORDERED: IBUPROFEN 400MG TAB PO PRN (20:40)
[2023-03-27] MEDS ORDERED: traZODone 50 MG TAB PO PRN (20:40)
[2023-03-27] MEDS ORDERED: valACYclovir HCL 500 MG TAB PO PRN (20:40)
[2023-03-27] MEDS ORDERED: PANTOPRAZOLE 40MG TAB (PROTONIX) PO PRN (20:40)
[2023-03-27] MEDS ORDERED: EXCEDRIN MIGRAINE TABLET PO PRN (20:40)
[2023-03-27] MEDS ORDERED: ACETAMINOPHEN TAB 650MG DOSE (2X325MG) PO PRN (20:40)
[2023-03-27] MEDS ORDERED: SUMAtriptan SUCCINATE 25 MG TAB PO PRN (20:40)
[2023-03-27] MEDS ORDERED: MOM 30ML SUSPENSION UDC PO PRN (20:40)
[2023-03-27] MEDS ORDERED: diphenhydrAMINE 25MG CAP PO PRN (20:40)
[2023-03-27] MEDS ORDERED: MAALOX 30 ML SUSP *UDC PO PRN (20:40)
[2023-03-27] MEDS ORDERED: LORazepam 2 MG TAB PO PRN (20:40)
[2023-03-27] MEDS ORDERED: ONDANSETRON 4MG ORAL DISINTEGRATING TAB PO PRN (20:40)
[2023-03-27] MEDS ORDERED: CETIRIZINE (ZyrTEC) 10 MG TAB PO PRN (20:40)
[2023-03-27] MEDS: busPIRone 5 MG TAB PO SCH (22:04)
[2023-03-27] MEDS: TOPIRAMATE (TopAMAX) 100 MG TAB PO SCH (22:04)
[2023-03-27] MEDS: buPROPion **SR TABLET** (ZYBAN) 150MG PO SCH (22:04)
[2023-03-27] MEDS: MONTELUKAST 10 MG TAB PO SCH (22:04)
[2023-03-27] MEDS: PRAMIPEXOLE 0.25 MG TAB PO SCH (23:29)
[2023-03-27] MEDS: AMITRIPTYLINE 50 MG TAB PO SCH (23:30)
[2023-03-27] MEDS: ACAMPROSATE CALCIUM 333MG TABLET (CAMPRAL) PO SCH (23:30)
[2023-03-28] MEDS: TOPIRAMATE (TopAMAX) 100 MG TAB PO SCH ×2 (08:28→21:14)
[2023-03-28] MEDS: FUROSEMIDE 20 MG TAB PO SCH (08:29)
[2023-03-28] MEDS: buPROPion **SR TABLET** (ZYBAN) 150MG PO SCH ×2 (08:29→21:14)
[2023-03-28] MEDS: busPIRone 5 MG TAB PO SCH ×2 (08:29→21:14)
[2023-03-28] MEDS: FOLIC ACID 1MG TAB PO SCH (08:29)
[2023-03-28] MEDS: POTASSIUM CHL PWD 20MEQ PACKET PO SCH (08:29)
[2023-03-28] MEDS: MULTIVITAMINS/MINERALS THERAP 1 TAB PO SCH (08:29)
[2023-03-28] MEDS: ESCITALOPRAM OXALATE 10 MG TAB (LEXAPRO) PO SCH (08:29)
[2023-03-28] MEDS: THIAMINE 100 MG TAB PO SCH ×2 (08:29→21:14)
[2023-03-28] MEDS ORDERED: MAALOX 30 ML SUSP *UDC PO PRN (10:25)
[2023-03-28] MEDS ORDERED: diphenhydrAMINE 25MG CAP PO PRN (10:25)
[2023-03-28] MEDS ORDERED: traZODone 50 MG TAB PO PRN (10:25)
[2023-03-28 12:35] VITALS: BP 114/75; TEMP 97.7; O2SAT 100
[2023-03-28] MEDS: ACAMPROSATE CALCIUM 333MG TABLET (CAMPRAL) PO SCH ×2 (12:48→21:14)
[2023-03-28 17:03] VITALS: BP 113/58; TEMP 98.5; O2SAT 98
[2023-03-28] MEDS: MONTELUKAST 10 MG TAB PO SCH (21:14)
[2023-03-28] MEDS: AMITRIPTYLINE 50 MG TAB PO SCH (21:14)
[2023-03-28] MEDS: PRAMIPEXOLE 0.25 MG TAB PO SCH (21:14)
[2023-03-29 06:46] VITALS: BP 120/62; TEMP 98.4; O2SAT 100
[2023-03-29] MEDS: POTASSIUM CHL PWD 20MEQ PACKET PO SCH (08:19)
[2023-03-29] MEDS: ACAMPROSATE CALCIUM 333MG TABLET (CAMPRAL) PO SCH (08:20)
[2023-03-29] MEDS: busPIRone 5 MG TAB PO SCH (08:20)
[2023-03-29] MEDS: FOLIC ACID 1MG TAB PO SCH (08:20)
[2023-03-29] MEDS: TOPIRAMATE (TopAMAX) 100 MG TAB PO SCH (08:20)
[2023-03-29] MEDS: ESCITALOPRAM OXALATE 10 MG TAB (LEXAPRO) PO SCH (08:20)
[2023-03-29] MEDS: MULTIVITAMINS/MINERALS THERAP 1 TAB PO SCH (08:20)
[2023-03-29] MEDS: buPROPion **SR TABLET** (ZYBAN) 150MG PO SCH (08:20)
[2023-03-29] MEDS: THIAMINE 100 MG TAB PO SCH (08:20)
[2023-03-29] MEDS: FUROSEMIDE 20 MG TAB PO SCH (08:20)
[2023-03-29 09:04] LABS: FREE T4 0.81 NG/DL (0.89-1.76); THYROID STIMULATING HORMONE 0.655 uIU/ML (0.55-4.78)
== END 2023-03-29 14:15 | disposition home or self-care (01) | DRG 755 ==
LOC: M ED 17:12 → M ED INP 20:39 → UNDOADMIN 20:39 → M ED INP 03-28 10:23 → M PSY 03-28 12:34
PROVIDERS: ADMIT Psychiatry & Neurology Psychiatry; ATTEND Student in an Organized Health Care Education/Training Program
DX: F43.20 Adjustment disorder, unspecified (principal); F10.20 Alcohol dependence, uncomplicated; Z62.810 Personal history of physical and sexual abuse in childhood; Z91.51 Personal history of suicidal behavior; G43.909 Migraine, unspecified, not intractable, without status migrainosus; K21.9 Gastro-esophageal reflux disease without esophagitis; K57.90 Diverticulosis of intestine, part unspecified, without perforation or abscess without bleeding; J30.9 Allergic rhinitis, unspecified; D64.9 Anemia, unspecified; Z90.49 Acquired absence of other specified parts of digestive tract; Z98.84 Bariatric surgery status; Z81.1 Family history of alcohol abuse and dependence; Z79.899 Other long term (current) drug therapy; Z88.0 Allergy status to penicillin; Z88.2 Allergy status to sulfonamides; Z88.5 Allergy status to narcotic agent

== ENCOUNTER → 2023-04-02 | Outpatient (RCR) | payer BC ==
[~2023-04-02] MED LIST changes: +ACAM0.05 PO
== END ==
LOC: M OUTALCOH 03-22 09:54
PROVIDERS: ATTEND Psychiatry & Neurology Psychiatry
DX: F10.20 Alcohol dependence, uncomplicated (principal)

== ENCOUNTER 2023-04-09 08:40 | Outpatient (RCR) | payer BC ==
[~2023-04-09 08:40] MED LIST changes: +DICY-61 PO; -DICY10CA13 PO
== END 2023-05-03 ==
LOC: M OUTALCOH 08:40
PROVIDERS: ATTEND Psychiatry & Neurology Psychiatry
DX: F10.20 Alcohol dependence, uncomplicated (principal)

== ENCOUNTER → 2023-05-20 | Outpatient (CLI) | payer BC | LOC: M OUTALCOH 09:55 | PROVIDERS: ATTEND Psychiatry & Neurology Psychiatry | DX: Z13.39 Encounter for screening examination for other mental health and behavioral disorders (principal) ==

== ENCOUNTER → 2023-06-01 | Outpatient (CLI) | payer BC ==
[2023-06-01 10:20] LABS: BASO # 0.1 10^3/uL (0.0-0.2); BASO % 1.1 % (0.0-1.0); EOS # 0.2 10^3/uL (0.0-0.5); EOS % 3.4 % (0.0-3.0); HEMOGLOBIN 11.4 g/dl (12.0-15.5); LYMPH # 1.5 10^3/uL (1.5-5.0); LYMPH % 28.3 % (24.0-44.0); MONO # 0.3 10^3/uL (0.0-0.8); MONO % 4.9 % (2.0-8.0); NEUTROPHILS # 3.3 10^3/uL (1.5-8.5); NEUTROPHILS % 62.1 % (36.0-66.0); PLATELET COUNT, AUTOMATED 385 10^3/uL (150-450); RED BLOOD COUNT 4.75 10^6/uL (4.00-5.40); WHITE BLOOD COUNT 5.3 10^3/uL (4.0-10.0)
[2023-06-01 10:30] LABS: ERYTHROCYTE SEDIMENTATION RATE 27 mm/hr (0-20)
[2023-06-01 10:50] LABS: ALBUMIN 3.6 G/DL (3.2-5.2); ALKALINE PHOSPHATASE 57 U/L (46-116); ALT/SGPT 38 U/L (7.0-40); AST/SGOT 20 U/L (<34); BILIRUBIN,TOTAL 0.3 MG/DL (0.3-1.2); BLOOD UREA NITROGEN 14 MG/DL (9-23); CALCIUM LEVEL 9.3 MG/DL (8.5-10.1); CARBON DIOXIDE LEVEL 28 MMOL/L (20-31); CHLORIDE LEVEL 110 MMOL/L (98-107); CREATININE FOR GFR 0.93 MG/DL (0.55-1.30); GLOMERULAR FILTRATION RATE > 60.0 (>58); GLUCOSE, FASTING 82 MG/DL (60-100); POTASSIUM SERUM 3.6 MMOL/L (3.5-5.1); RHEUMATOID FACTOR QUANT < 3.5 IU/ML (<14); SODIUM LEVEL 144 MMOL/L (136-145)
[2023-06-01 10:53] LABS: FOLATE 19.5 NG/ML (>5.4); VITAMIN B12 LEVEL 454 PG/ML (211-911)
== END ==
LOC: M LAB 09:16
PROVIDERS: ATTEND Psychiatry & Neurology Neurology
DX: R51.9 Headache, unspecified (principal)

== ENCOUNTER 2023-06-02 08:39 | Outpatient (RCR) | payer BC | END 2023-06-03 | LOC: M OUTALCOH 08:39 | PROVIDERS: ATTEND Psychiatry & Neurology Psychiatry | DX: F10.20 Alcohol dependence, uncomplicated (principal); Z72.0 Tobacco use ==

== ENCOUNTER → 2023-07-07 | Outpatient (CLI) | payer BC | LOC: M WHC 09:08 | PROVIDERS: ATTEND Obstetrics & Gynecology | DX: Z12.31 Encounter for screening mammogram for malignant neoplasm of breast (principal) ==

== ENCOUNTER 2023-07-19 10:35 | Inpatient (IN) | payer BC ==
[~2023-07-19] VITALS: Ht 157.5 cm; Wt 75.2 kg
[2023-07-19 11:16] LABS: ABG BASE EXCESS -8.7 (-2.0-2.0); ABG HCO3 15.9 MMOL/L (22.0-26.0); ABG O2 SATURATION 97.6 % (95.0-99.0); ABG PARTIAL PRESSURE CO2 30.2 mmHg (35.0-45.0); ABG PARTIAL PRESSURE O2 111.9 mmHg (75.0-100.0); ABG STANDARD HCO3 17.4 MMOL/L. (22.0-26.0); ABG TOTAL CO2 16.9 MMOL/L (22.0-29.0)
[2023-07-19 11:22] LABS: BASO # 0.1 10^3/uL (0.0-0.2); BASO % 0.6 % (0.0-1.0); EOS # 0.2 10^3/uL (0.0-0.5); EOS % 2.2 % (0.0-3.0); HEMATOCRIT 33.9 % (36.0-47.0); HEMOGLOBIN 10.2 g/dl (12.0-15.5); LYMPH # 1.5 10^3/uL (1.5-5.0); LYMPH % 17.2 % (24.0-44.0); MEAN CORPUSCULAR HEMOGLOBIN 24.8 pg (27.0-33.0); MEAN CORPUSCULAR HGB CONC 30.1 g/dl (32.0-36.5); MEAN CORPUSCULAR VOLUME 82.5 fl (80.0-96.0); MONO # 0.5 10^3/uL (0.0-0.8); MONO % 5.8 % (2.0-8.0); NEUTROPHILS # 6.2 10^3/uL (1.5-8.5); NEUTROPHILS % 73.8 % (36.0-66.0); PLATELET COUNT, AUTOMATED 323 10^3/uL (150-450); RED BLOOD COUNT 4.11 10^6/uL (4.00-5.40); WHITE BLOOD COUNT 8.5 10^3/uL (4.0-10.0)
[2023-07-19 11:51] LABS: CPK CREATINE PHOSPHOKINASE 82 U/L (34-145); MB/CK RELATIVE INDEX 1.21 (< OR =4)
[2023-07-19 11:51] LABS: ETHYL ALCOHOL (ETHANOL) < 0.003 % (0.000-0.010)
[2023-07-19 11:52] LABS: ACETAMINOPHEN LEVEL 3.8 UG/ML (10.0-20.0)
[2023-07-19 11:53] LABS: ALBUMIN 3.4 G/DL (3.2-5.2); ALKALINE PHOSPHATASE 65 U/L (46-116); ALT/SGPT 28 U/L (7.0-40); AST/SGOT 30 U/L (<34); BILIRUBIN,DIRECT < 0.1 MG/DL (<0.4); BILIRUBIN,TOTAL 0.3 MG/DL (0.3-1.2); BLOOD UREA NITROGEN 15 MG/DL (9-23); CALCIUM LEVEL 8.6 MG/DL (8.5-10.1); CARBON DIOXIDE LEVEL 22 MMOL/L (20-31); CHLORIDE LEVEL 110 MMOL/L (98-107); GLOMERULAR FILTRATION RATE > 60.0 (>58); GLUCOSE, FASTING 82 MG/DL (60-100); POTASSIUM SERUM 4.8 MMOL/L (3.5-5.1); SALICYLATE LEVEL < 3.0 MG/DL (<30); SODIUM LEVEL 138 MMOL/L (136-145); THYROID STIMULATING HORMONE 1.086 uIU/ML (0.55-4.78); TOTAL PROTEIN 6.6 G/DL (5.7-8.2)
[2023-07-19] MEDS ORDERED: NALOXONE 2MG/2ML SYRINGE As Ordered ONE (11:56)
[2023-07-19 11:57] LABS: OSMOLALITY SERUM 289 MOSM/KG (275-295)
[2023-07-19 11:59] LABS: HCG, SERUM QUALITATIVE NEGATIVE (NEGATIVE)
[2023-07-19 12:00] LABS: CPK CREATINE PHOSPHOKINASE 89 U/L (34-145)
[2023-07-19] MEDS ORDERED: NS 1,000 ML IV ONE (12:05)
[2023-07-19] MEDS ORDERED: ISOVUE-370 76% 100ML VIAL As Ordered ONE (12:10)
[2023-07-19] MEDS ORDERED: IPRATROPIUM 0.5MG/ALBUTEROL 2.5MG INH SOL UD 3ML (DUONEB) NEB ONE (12:30)
[2023-07-19] MEDS ORDERED: NALOXONE INJ 0.4MG/1ML VIAL IV STA (12:54)
[2023-07-19] MEDS ORDERED: NALOXONE 2MG/2ML SYRINGE IV STA (13:00)
[2023-07-19 13:52] LABS: INR 1.03; PARTIAL THROMBOPLASTIN TIME 27.6 SECONDS (24.8-34.2); PROTHROMBIN TIME 13.2 SECONDS (12.5-14.5)
[2023-07-19] MEDS ORDERED: MED REC IN PROGRESS XX SCH (14:30)
[2023-07-19 14:57] LABS: AMPHETAMINES LEVEL URINE NEGATIVE (NEGATIVE); BARBITURATES URINE NEGATIVE (NEGATIVE); BENZODIAZEPINES URINE NEGATIVE (NEGATIVE); CANNABINOIDS URINE NEGATIVE (NEGATIVE); COCAINE METABOLITE URINE NEGATIVE (NEGATIVE); METHADONE URINE NEGATIVE (NEGATIVE); PHENCYCLIDINE URINE NEGATIVE (NEGATIVE)
[2023-07-19 15:00] LABS: OPIATES URINE POSITIVE (NEGATIVE)
[2023-07-19] MEDS ORDERED: ENOXAPARIN 40MG/0.4ML SYRINGE (J1650 PER 10MG) SC ONE (15:00)
[2023-07-19] MEDS ORDERED: DEXTROSE 50% 50ML SYRINGE IV PRN (15:05)
[2023-07-19] MEDS ORDERED: GLUCOSE 4GM CHEW TABLET PO PRN (15:05)
[2023-07-19] MEDS ORDERED: GLUCAGON INJ 1MG VIAL SC PRN (15:05)
[2023-07-19] MEDS ORDERED: LORazepam 2 MG TAB PO PRN (15:10)
[2023-07-19] MEDS ORDERED: BACL1TAB9 PO (15:33)
[2023-07-19] MEDS ORDERED: LEXA1TAB2 PO (15:33)
[2023-07-19] MEDS ORDERED: HYDR50CA2 PO (15:33)
[2023-07-19] MEDS ORDERED: HOME MED LIST COMPLETE! XX SCH (15:35)
[2023-07-19 16:26] LABS: C REACTIVE PROTEIN QUANTITATIV < 0.40 MG/DL (<1.0)
[2023-07-19 16:27] LABS: PROLACTIN 12.01 NG/ML
[2023-07-19 16:36] LABS: ERYTHROCYTE SEDIMENTATION RATE 17 mm/hr (0-20)
[2023-07-19 16:39] LABS: PROCALCITONIN <0.04 ng/ml
[2023-07-19] MEDS ORDERED: MULTIVITAMIN -ADULT INJECTION 10 ML, THIAMINE INJection 100 MG, FOLIC ACID 1 MG in NS 1... IV ONE (17:30)
[2023-07-19 17:45] VITALS: BP 103/67; TEMP 98.6; O2SAT 95
[2023-07-19] MEDS ORDERED: HALOPERIDOL 5MG/ML 1ML VIAL IV PRN (20:20)
[2023-07-19] MEDS: THIAMINE 100 MG TAB PO SCH (21:00)
[2023-07-19 23:30] VITALS: BP 106/46; TEMP 98.8; O2SAT 98
[2023-07-20] MEDS: ACETAMINOPHEN TAB 650MG DOSE (2X325MG) PO PRN ×3 (00:46→21:53)
[2023-07-20 02:27] VITALS: BP 113/70
[2023-07-20] MEDS ORDERED: KETOROLAC 30 MG/ML 1ML VIAL IV ONE (05:00)
[2023-07-20 05:30] VITALS: BP 111/66; TEMP 98.6; O2SAT 99
[2023-07-20 06:11] LABS: BASO # 0.1 10^3/uL (0.0-0.2); EOS # 0.3 10^3/uL (0.0-0.5); EOS % 6.8 % (0.0-3.0); HEMATOCRIT 27.8 % (36.0-47.0); HEMOGLOBIN 8.3 g/dl (12.0-15.5); LYMPH # 1.5 10^3/uL (1.5-5.0); LYMPH % 30.8 % (24.0-44.0); MEAN CORPUSCULAR HEMOGLOBIN 24.5 pg (27.0-33.0); MEAN CORPUSCULAR HGB CONC 29.9 g/dl (32.0-36.5); MONO # 0.3 10^3/uL (0.0-0.8); MONO % 6.4 % (2.0-8.0); NEUTROPHILS # 2.7 10^3/uL (1.5-8.5); NEUTROPHILS % 54.8 % (36.0-66.0); PLATELET COUNT, AUTOMATED 233 10^3/uL (150-450); RED BLOOD COUNT 3.39 10^6/uL (4.00-5.40)
[2023-07-20 06:38] LABS: BLOOD UREA NITROGEN 14 MG/DL (9-23); CALCIUM LEVEL 8.3 MG/DL (8.5-10.1); CARBON DIOXIDE LEVEL 21 MMOL/L (20-31); CHLORIDE LEVEL 113 MMOL/L (98-107); CREATININE FOR GFR 0.82 MG/DL (0.55-1.30); GLOMERULAR FILTRATION RATE > 60.0 (>58); GLUCOSE, FASTING 164 MG/DL (60-100); POTASSIUM SERUM 4.4 MMOL/L (3.5-5.1); SODIUM LEVEL 140 MMOL/L (136-145)
[2023-07-20 08:00] VITALS: BP 108/68; TEMP 99; O2SAT 97
[2023-07-20] MEDS ORDERED: ENOXAPARIN 40MG/0.4ML SYRINGE (J1650 PER 10MG) SC SCH (09:00)
[2023-07-20] MEDS ORDERED: MULTIVITAMINS/MINERALS THERAP 1 TAB PO SCH (09:00)
[2023-07-20] MEDS ORDERED: FOLIC ACID 1MG TAB PO SCH (09:00)
[2023-07-20 09:24] LABS: LIPASE 41 U/L (12-53)
[2023-07-20 09:25] LABS: AMYLASE 79 U/L (30-118)
[2023-07-20 09:28] LABS: ALKALINE PHOSPHATASE 57 U/L (46-116); ALT/SGPT 21 U/L (7.0-40); AST/SGOT 12 U/L (<34); BILIRUBIN,DIRECT < 0.1 MG/DL (<0.4); BILIRUBIN,TOTAL 0.3 MG/DL (0.3-1.2); TOTAL PROTEIN 5.8 G/DL (5.7-8.2)
[2023-07-20] MEDS: THIAMINE 100 MG TAB PO SCH ×2 (10:08→20:42)
[2023-07-20] MEDS ORDERED: PANT40TA29 PO (10:15)
[2023-07-20] MEDS ORDERED: PANTOPRAZOLE 40MG VIAL IV ONE (10:15)
[2023-07-20] MEDS ORDERED: CARA1TAB6 PO (10:15)
[2023-07-20] MEDS ORDERED: SUCRALFATE SUSP 1GM/10ML UD PO ONE (10:15)
[2023-07-20 10:42] LABS: T UPTAKE 42.8 % (22.5-37.0); THYROID STIMULATING HORMONE 0.615 uIU/ML (0.55-4.78)
[2023-07-20] MEDS ORDERED: PANTOPRAZOLE 40MG TAB (PROTONIX) PO ONE (10:50)
[2023-07-20] MEDS ORDERED: SUCRALFATE SUSP 1GM/10ML UD PO SCH (12:00)
[2023-07-20] MEDS ORDERED: METOCLOPRAMIDE INJ 10MG/2ML VIAL IV SCH (12:00)
[2023-07-20 12:09] LABS: IONIZED CALCIUM 5.1 MG/DL (4.5-5.3)
[2023-07-20] MEDS ORDERED: DEXTROSE 50% 50ML SYRINGE IV STA (12:09)
[2023-07-20 12:27] LABS: HEMOGLOBIN A1c 5.4 % (4.0-6.0)
[2023-07-20] MEDS: KETOROLAC 30 MG/ML 1ML VIAL IV SCH ×3 (12:33→23:16)
[2023-07-20 12:36] LABS: C REACTIVE PROTEIN QUANTITATIV < 0.40 MG/DL (<1.0)
[2023-07-20] MEDS: NS 0.45% 1,000 ML IV SCH ×2 (12:37→14:14)
[2023-07-20] MEDS ORDERED: PROMETHAZINE 25MG/ML 1ML VIAL IV ONE (12:50)
[2023-07-20] MEDS ORDERED: PROMETHAZINE 25MG/ML 1ML VIAL IV SCH (13:00)
[2023-07-20 13:33] LABS: PROCALCITONIN <0.04 ng/ml
[2023-07-20 13:56] VITALS: BP 106/67; TEMP 98.6; O2SAT 100
[2023-07-20] MEDS ORDERED: D5W/0.45% SODIUM CHLORIDE 1,000 ML IV SCH (15:00)
[2023-07-20] MEDS ORDERED: ONDANSETRON 4MG ORAL DISINTEGRATING TAB PO PRN (17:20)
[2023-07-20] MEDS: SUCRALFATE SUSP 1GM/10ML UD PO SCH ×2 (18:04→23:18)
[2023-07-20] MEDS: PROMETHAZINE 25MG/ML 1ML VIAL IV SCH (19:00)
[2023-07-20] MEDS: PANTOPRAZOLE 40MG VIAL IV SCH (20:42)
[2023-07-20] MEDS ORDERED: PANTOPRAZOLE 40MG TAB (PROTONIX) PO SCH (21:00)
[2023-07-20 21:30] VITALS: BP 115/71; TEMP 98.8; O2SAT 100
[2023-07-21] MEDS: PROMETHAZINE 25MG/ML 1ML VIAL IV SCH ×2 (00:16→06:18)
[2023-07-21] MEDS: SUCRALFATE SUSP 1GM/10ML UD PO SCH (05:09)
[2023-07-21 05:10] VITALS: BP 107/70; TEMP 98.6; O2SAT 100
[2023-07-21] MEDS: KETOROLAC 30 MG/ML 1ML VIAL IV SCH (05:10)
[2023-07-21 06:27] LABS: BASO # 0.1 10^3/uL (0.0-0.2); BASO % 0.9 % (0.0-1.0); EOS # 0.5 10^3/uL (0.0-0.5); EOS % 8.1 % (0.0-3.0); HEMATOCRIT 27.5 % (36.0-47.0); HEMOGLOBIN 8.5 g/dl (12.0-15.5); LYMPH # 1.4 10^3/uL (1.5-5.0); LYMPH % 25.2 % (24.0-44.0); MEAN CORPUSCULAR HEMOGLOBIN 24.9 pg (27.0-33.0); MEAN CORPUSCULAR HGB CONC 30.9 g/dl (32.0-36.5); MEAN CORPUSCULAR VOLUME 80.4 fl (80.0-96.0); MONO # 0.4 10^3/uL (0.0-0.8); NEUTROPHILS # 3.3 10^3/uL (1.5-8.5); NEUTROPHILS % 58.4 % (36.0-66.0); PLATELET COUNT, AUTOMATED 271 10^3/uL (150-450); RED BLOOD COUNT 3.42 10^6/uL (4.00-5.40); WHITE BLOOD COUNT 5.7 10^3/uL (4.0-10.0)
[2023-07-21 06:59] LABS: BLOOD UREA NITROGEN 16 MG/DL (9-23); CALCIUM LEVEL 8.2 MG/DL (8.5-10.1); CARBON DIOXIDE LEVEL 19 MMOL/L (20-31); CHLORIDE LEVEL 113 MMOL/L (98-107); CREATININE FOR GFR 0.81 MG/DL (0.55-1.30); GLOMERULAR FILTRATION RATE > 60.0 (>58); GLUCOSE, FASTING 113 MG/DL (60-100); POTASSIUM SERUM 3.9 MMOL/L (3.5-5.1); SODIUM LEVEL 141 MMOL/L (136-145)
[2023-07-21] MEDS: PANTOPRAZOLE 40MG VIAL IV SCH (08:31)
== END 2023-07-21 10:50 | disposition left against medical advice (07) | DRG 812 ==
LOC: M ED 10:35 → M ED INP 14:26 → M MSPAV 17:46
PROVIDERS: ADMIT General Practice; ATTEND General Practice
DX: T40.2X1A Poisoning by other opioids, accidental (unintentional), initial encounter (principal); R13.10 Dysphagia, unspecified; K27.9 Peptic ulcer, site unspecified, unspecified as acute or chronic, without hemorrhage or perforation; T45.0X1A Poisoning by antiallergic and antiemetic drugs, accidental (unintentional), initial encounter; E66.9 Obesity, unspecified; F43.20 Adjustment disorder, unspecified; F32.A Depression, unspecified; F41.9 Anxiety disorder, unspecified; G43.909 Migraine, unspecified, not intractable, without status migrainosus; E04.2 Nontoxic multinodular goiter; K29.20 Alcoholic gastritis without bleeding; K28.9 Gastrojejunal ulcer, unspecified as acute or chronic, without hemorrhage or perforation; M54.81 Occipital neuralgia; Z86.16 Personal history of COVID-19; K21.9 Gastro-esophageal reflux disease without esophagitis; D64.9 Anemia, unspecified; G47.00 Insomnia, unspecified; G25.81 Restless legs syndrome; F10.10 Alcohol abuse, uncomplicated; Z90.49 Acquired absence of other specified parts of digestive tract; Z98.84 Bariatric surgery status; Z90.79 Acquired absence of other genital organ(s); Z79.899 Other long term (current) drug therapy; Z88.0 Allergy status to penicillin; Z88.2 Allergy status to sulfonamides; Z88.5 Allergy status to narcotic agent; Z68.30 Body mass index [BMI] 30.0-30.9, adult

== ENCOUNTER 2023-08-02 13:00 | Outpatient (RCR) | payer BC ==
[~2023-08-02 13:00] MED LIST changes: +BACL1TAB9 PO; +CARA1TAB6 PO; +HYDR50CA2 PO
== END 2023-08-03 ==
LOC: M OUTALCOH 13:00
PROVIDERS: ATTEND Psychiatry & Neurology Psychiatry
DX: F10.20 Alcohol dependence, uncomplicated (principal); Z72.0 Tobacco use

== ENCOUNTER → 2023-09-02 | Outpatient (RCR) | payer BC | LOC: M OUTALCOH 08-05 10:42 | PROVIDERS: ATTEND Psychiatry & Neurology Psychiatry | DX: F10.20 Alcohol dependence, uncomplicated (principal); F17.200 Nicotine dependence, unspecified, uncomplicated ==

== ENCOUNTER 2023-09-20 15:00 | Outpatient (RCR) | payer BC | END 2023-10-03 | LOC: M OUTALCOH 15:00 | PROVIDERS: ATTEND Psychiatry & Neurology Psychiatry | DX: F10.20 Alcohol dependence, uncomplicated (principal); F17.200 Nicotine dependence, unspecified, uncomplicated ==

== ENCOUNTER 2023-11-01 14:54 | Outpatient (RCR) | payer BC | END 2023-11-03 | LOC: M OUTALCOH 14:54 | PROVIDERS: ATTEND Psychiatry & Neurology Child & Adolescent Psychiatry | DX: F10.20 Alcohol dependence, uncomplicated (principal); F17.200 Nicotine dependence, unspecified, uncomplicated ==

== ENCOUNTER 2023-12-10 08:06 | Outpatient (RCR) | payer OTHER ==
[~2023-12-10 08:06] MED LIST changes: -DOCU-153 PO; +STOO100C30 PO
== END 2024-01-02 ==
LOC: M OUTALCOH 08:06
PROVIDERS: ATTEND Psychiatry & Neurology Psychiatry
DX: F10.20 Alcohol dependence, uncomplicated (principal); F17.200 Nicotine dependence, unspecified, uncomplicated

== ENCOUNTER → 2024-01-29 | Outpatient (CLI) | payer OTHER ==
[2024-01-29 10:08] LABS: HEMATOCRIT 37.2 % (36.0-47.0); HEMOGLOBIN 11.3 g/dl (12.0-15.5); MEAN CORPUSCULAR HEMOGLOBIN 23.9 pg (27.0-33.0); MEAN CORPUSCULAR HGB CONC 30.4 g/dl (32.0-36.5); MEAN CORPUSCULAR VOLUME 78.8 fl (80.0-96.0); PLATELET COUNT, AUTOMATED 314 10^3/uL (150-450); RED BLOOD COUNT 4.72 10^6/uL (4.00-5.40); WHITE BLOOD COUNT 4.6 10^3/uL (4.0-10.0)
[2024-01-29 10:32] LABS: ALBUMIN 3.5 G/DL (3.2-5.2); ALKALINE PHOSPHATASE 55 U/L (46-116); ALT/SGPT 15 U/L (7.0-40); AST/SGOT 12 U/L (<34); BILIRUBIN,TOTAL 0.2 MG/DL (0.3-1.2); BLOOD UREA NITROGEN 12 MG/DL (9-23); CALCIUM LEVEL 9.7 MG/DL (8.5-10.1); CARBON DIOXIDE LEVEL 25 MMOL/L (20-31); CHLORIDE LEVEL 108 MMOL/L (98-107); CHOLESTEROL LEVEL 180 MG/DL (<200); CHOLESTEROL RISK RATIO 4.51 (<5); CREATININE FOR GFR 0.91 MG/DL (0.55-1.30); FERRITIN 5.3 NG/ML (7.3-270.7); FREE T4 1.12 NG/DL (0.89-1.76); GLOMERULAR FILTRATION RATE > 60.0 (>58); GLUCOSE, FASTING 80 MG/DL (60-100); HDL CHOLESTEROL 39.9 MG/DL (>40); IRON (FE) 20 UG/DL (50-170); LDL CHOLESTEROL 122.1 MG/DL (<100); NON-HDL-C 140.1 MG/DL; PERCENT SATURATION 5.9 % (13.2-45.0); POTASSIUM SERUM 4.8 MMOL/L (3.5-5.1); SODIUM LEVEL 141 MMOL/L (136-145); TOTAL IRON BINDING CAPACITY 337 UG/DL (250-425); TOTAL PROTEIN 6.5 G/DL (5.7-8.2); TRIGLYCERIDES LEVEL 90 MG/DL (<150)
[2024-01-29 10:33] LABS: THYROID STIMULATING HORMONE 0.548 uIU/ML (0.55-4.78); TOTAL 25(OH) VITAMIN D 46.1 NG/ML (20.0-100.0)
[2024-01-29 10:35] LABS: VITAMIN B12 LEVEL 1205 PG/ML (211-911)
== END ==
LOC: M LAB 09:02
PROVIDERS: ATTEND Family Medicine
DX: E04.1 Nontoxic single thyroid nodule (principal); F41.9 Anxiety disorder, unspecified; F32.9 Major depressive disorder, single episode, unspecified; F10.11 Alcohol abuse, in remission; E78.5 Hyperlipidemia, unspecified; Z98.84 Bariatric surgery status; D50.9 Iron deficiency anemia, unspecified

== ENCOUNTER → 2024-02-18 | Outpatient (CLI) | payer OTHER ==
[~2024-02-18] MED LIST changes: -POTA10CA60 PO; +POTA10CA70 PO
== END ==
LOC: M RAD 07:59
PROVIDERS: ATTEND Family Medicine
DX: M25.511 Pain in right shoulder (principal)

== ENCOUNTER → 2024-03-30 | Outpatient (CLI) | payer OTHER ==
[~2024-03-30] MED LIST changes: +ONDA-282 PO; -ONDA4TAB6 PO
== END ==
LOC: M PLAIMG 15:42
PROVIDERS: ATTEND Family Medicine
DX: M25.511 Pain in right shoulder (principal)

== ENCOUNTER 2024-06-14 17:50 | Emergency (ER) | payer OTHER ==
[~2024-06-14] VITALS: Ht 157.5 cm; Wt 70.5 kg
[2024-06-14 18:05] VITALS: TEMP 98.7
[2024-06-14] MEDS: methocarbamoL 750 MG TAB PO ONE (19:02)
[2024-06-14] MEDS: IBUPROFEN 600MG TAB PO ONE (19:03)
[2024-06-14] MEDS ORDERED: METH-1165 PO (19:18)
[2024-06-14] MEDS ORDERED: IBUP-1022 PO (19:18)
[2024-06-14 19:27] VITALS: BP 120/61; O2SAT 100
== END 2024-06-14 19:28 | disposition home or self-care (01) ==
LOC: EDBD 17:50 → M ED 17:50
DX: S16.1XXA Strain of muscle, fascia and tendon at neck level, initial encounter (principal); Y92.410 Unspecified street and highway as the place of occurrence of the external cause; Y93.9 Activity, unspecified; Y99.9 Unspecified external cause status; V43.52XA Car driver injured in collision with other type car in traffic accident, initial encounter; Z88.0 Allergy status to penicillin; Z88.2 Allergy status to sulfonamides; Z88.5 Allergy status to narcotic agent; Z91.09 Other allergy status, other than to drugs and biological substances; Z79.1 Long term (current) use of non-steroidal anti-inflammatories (NSAID); Z79.2 Long term (current) use of antibiotics; Z79.899 Other long term (current) drug therapy

== ENCOUNTER 2024-06-16 14:46 | Emergency (ER) | payer OTHER ==
[~2024-06-16 14:46] MED LIST changes: +IBUP-1022 PO; +METH-1165 PO
[2024-06-16] MEDS: diazePAM 10MG/2ML SYRINGE IV ONE (15:30)
[2024-06-16 15:40] LABS: BASO # 0.1 10^3/uL (0.0-0.2); BASO % 0.6 % (0.0-1.0); EOS # 0.2 10^3/uL (0.0-0.5); EOS % 2.4 % (0.0-3.0); HEMATOCRIT 30.7 % (36.0-47.0); HEMOGLOBIN 9.5 g/dl (12.0-15.5); LYMPH # 1.5 10^3/uL (1.5-5.0); LYMPH % 17.9 % (24.0-44.0); MEAN CORPUSCULAR HEMOGLOBIN 25.4 pg (27.0-33.0); MEAN CORPUSCULAR HGB CONC 30.9 g/dl (32.0-36.5); MEAN CORPUSCULAR VOLUME 82.1 fl (80.0-96.0); MONO # 0.6 10^3/uL (0.0-0.8); MONO % 6.9 % (2.0-8.0); NEUTROPHILS # 5.9 10^3/uL (1.5-8.5); PLATELET COUNT, AUTOMATED 330 10^3/uL (150-450); RED BLOOD COUNT 3.74 10^6/uL (4.00-5.40); WHITE BLOOD COUNT 8.3 10^3/uL (4.0-10.0)
[2024-06-16 15:58] LABS: AMPHETAMINES LEVEL URINE NEGATIVE (NEGATIVE); BARBITURATES URINE NEGATIVE (NEGATIVE); BENZODIAZEPINES URINE NEGATIVE (NEGATIVE)
[2024-06-16 15:59] LABS: CANNABINOIDS URINE NEGATIVE (NEGATIVE); COCAINE METABOLITE URINE NEGATIVE (NEGATIVE); METHADONE URINE NEGATIVE (NEGATIVE); OPIATES URINE NEGATIVE (NEGATIVE); PHENCYCLIDINE URINE NEGATIVE (NEGATIVE)
[2024-06-16 16:00] LABS: ETHYL ALCOHOL (ETHANOL) 0.005 % (0.000-0.010)
[2024-06-16 16:03] LABS: ALBUMIN 3.2 G/DL (3.2-5.2); ALKALINE PHOSPHATASE 49 U/L (46-116); ALT/SGPT 19 U/L (7.0-40); AST/SGOT 11 U/L (<34); BILIRUBIN,DIRECT < 0.1 MG/DL (<0.4); BILIRUBIN,TOTAL 0.2 MG/DL (0.3-1.2); BLOOD UREA NITROGEN 14 MG/DL (9-23); CALCIUM LEVEL 8.9 MG/DL (8.5-10.1); CARBON DIOXIDE LEVEL 22 MMOL/L (20-31); CHLORIDE LEVEL 115 MMOL/L (98-107); CREATININE FOR GFR 0.85 MG/DL (0.55-1.30); GLOMERULAR FILTRATION RATE > 60.0 (>58); GLUCOSE, FASTING 91 MG/DL (60-100); POTASSIUM SERUM 3.9 MMOL/L (3.5-5.1); SODIUM LEVEL 143 MMOL/L (136-145); TOTAL PROTEIN 6.1 G/DL (5.7-8.2)
[2024-06-16] MEDS ORDERED: VALI5TAB PO (17:50)
[2024-06-16 18:01] VITALS: BP 132/58; TEMP 97.1; O2SAT 98
== END 2024-06-16 18:10 | disposition home or self-care (01) ==
LOC: M ED 14:46
DX: S00.93XA Contusion of unspecified part of head, initial encounter (principal); S80.12XA Contusion of left lower leg, initial encounter; Y92.019 Unspecified place in single-family (private) house as the place of occurrence of the external cause; Y93.9 Activity, unspecified; Y99.9 Unspecified external cause status; W10.8XXA Fall (on) (from) other stairs and steps, initial encounter; R00.1 Bradycardia, unspecified; K21.9 Gastro-esophageal reflux disease without esophagitis; F41.9 Anxiety disorder, unspecified; F32.A Depression, unspecified; G25.81 Restless legs syndrome; Z88.0 Allergy status to penicillin; Z88.2 Allergy status to sulfonamides; Z88.5 Allergy status to narcotic agent; Z91.09 Other allergy status, other than to drugs and biological substances; Z79.1 Long term (current) use of non-steroidal anti-inflammatories (NSAID); Z79.2 Long term (current) use of antibiotics; Z79.899 Other long term (current) drug therapy
CPT/HCPCS: 70450; 72125; 73564; 73590; 80048; 80076; 80307; 82077; 85025; 93005; 93041; 94760; 96374; 99285; J3360

== ENCOUNTER 2024-06-19 17:39 | Emergency (ER) | payer OTHER ==
[~2024-06-19] VITALS: Ht 157.5 cm; Wt 68.2 kg
[~2024-06-19 17:39] MED LIST changes: +VALI5TAB PO
[2024-06-19 21:46] LABS: BASO % 0.6 % (0.0-1.0); EOS # 0.2 10^3/uL (0.0-0.5); EOS % 3.7 % (0.0-3.0); HEMATOCRIT 28.2 % (36.0-47.0); HEMOGLOBIN 8.6 g/dl (12.0-15.5); LYMPH % 32.2 % (24.0-44.0); MEAN CORPUSCULAR HEMOGLOBIN 25.5 pg (27.0-33.0); MEAN CORPUSCULAR HGB CONC 30.5 g/dl (32.0-36.5); MEAN CORPUSCULAR VOLUME 83.7 fl (80.0-96.0); MONO # 0.5 10^3/uL (0.0-0.8); MONO % 7.9 % (2.0-8.0); NEUTROPHILS # 3.4 10^3/uL (1.5-8.5); NEUTROPHILS % 55.4 % (36.0-66.0); PLATELET COUNT, AUTOMATED 262 10^3/uL (150-450); RED BLOOD COUNT 3.37 10^6/uL (4.00-5.40); WHITE BLOOD COUNT 6.2 10^3/uL (4.0-10.0)
[2024-06-19 22:10] LABS: ETHYL ALCOHOL (ETHANOL) < 0.003 % (0.000-0.010)
[2024-06-19 22:12] LABS: AMPHETAMINES LEVEL URINE NEGATIVE (NEGATIVE)
[2024-06-19 22:13] LABS: ALBUMIN 2.8 G/DL (3.2-5.2); ALKALINE PHOSPHATASE 42 U/L (46-116); ALT/SGPT 20 U/L (7.0-40); AST/SGOT 12 U/L (<34); BILIRUBIN,DIRECT < 0.1 MG/DL (<0.4); BILIRUBIN,TOTAL < 0.2 MG/DL (0.3-1.2); BLOOD UREA NITROGEN 19 MG/DL (9-23); CALCIUM LEVEL 8.3 MG/DL (8.5-10.1); CARBON DIOXIDE LEVEL 26 MMOL/L (20-31); CHLORIDE LEVEL 116 MMOL/L (98-107); CREATININE FOR GFR 0.79 MG/DL (0.55-1.30); GLOMERULAR FILTRATION RATE > 60.0 (>58); GLUCOSE, FASTING 89 MG/DL (60-100); POTASSIUM SERUM 3.6 MMOL/L (3.5-5.1); SODIUM LEVEL 144 MMOL/L (136-145); TOTAL PROTEIN 5.6 G/DL (5.7-8.2)
[2024-06-19 22:15] LABS: THYROID STIMULATING HORMONE 0.654 uIU/ML (0.55-4.78)
[2024-06-19 22:16] LABS: BARBITURATES URINE NEGATIVE (NEGATIVE); COCAINE METABOLITE URINE NEGATIVE (NEGATIVE); METHADONE URINE NEGATIVE (NEGATIVE); OPIATES URINE NEGATIVE (NEGATIVE)
[2024-06-19 22:17] LABS: CANNABINOIDS URINE NEGATIVE (NEGATIVE); PHENCYCLIDINE URINE NEGATIVE (NEGATIVE)
[2024-06-19 22:18] LABS: BENZODIAZEPINES URINE POSITIVE (NEGATIVE)
[2024-06-19] MEDS: KETOROLAC 30 MG/ML 1ML VIAL IV ONE (22:41)
[2024-06-19] MEDS: ONDANSETRON 4MG 2ML VIAL IV ONE (22:41)
[2024-06-19] MEDS: ACETAMINOPHEN *IV* 1,000 MG in IV 1 EA IV ONE (22:41)
[2024-06-20 00:18] VITALS: BP 104/73; TEMP 98.4; O2SAT 100
== END 2024-06-20 00:24 | disposition home or self-care (01) ==
LOC: M ED 17:39
DX: S06.0X0A Concussion without loss of consciousness, initial encounter (principal); M25.552 Pain in left hip; W10.8XXA Fall (on) (from) other stairs and steps, initial encounter; M54.50 Low back pain, unspecified; R00.1 Bradycardia, unspecified; G43.909 Migraine, unspecified, not intractable, without status migrainosus; F41.9 Anxiety disorder, unspecified; F32.A Depression, unspecified; I95.9 Hypotension, unspecified; F10.10 Alcohol abuse, uncomplicated; Z88.0 Allergy status to penicillin; Z88.2 Allergy status to sulfonamides; Z88.5 Allergy status to narcotic agent; Z91.048 Other nonmedicinal substance allergy status; Z79.82 Long term (current) use of aspirin; Z79.83 Long term (current) use of bisphosphonates; Z79.899 Other long term (current) drug therapy; Z79.1 Long term (current) use of non-steroidal anti-inflammatories (NSAID); Y92.9 Unspecified place or not applicable; Y93.89 Activity, other specified; Y99.9 Unspecified external cause status
CPT/HCPCS: 73502; 80048; 80076; 80307; 81001; 82077; 84443; 85025; 87086; 93005; 96374; 96375; 99284; J0131; J1885; J2405

== ENCOUNTER → 2024-06-21 | Outpatient (CLI) | payer OTHER | LOC: M PLAIMG 12:06 | PROVIDERS: ATTEND Student in an Organized Health Care Education/Training Program | DX: S06.0X0A Concussion without loss of consciousness, initial encounter (principal); W18.30XA Fall on same level, unspecified, initial encounter; Y92.009 Unspecified place in unspecified non-institutional (private) residence as the place of occurrence of the external cause ==

== ENCOUNTER → 2024-06-28 | Outpatient (CLI) | payer OTHER | LOC: M PLAIMG 12:34 | PROVIDERS: ATTEND Student in an Organized Health Care Education/Training Program | DX: R15.9 Full incontinence of feces (principal) ==

== ENCOUNTER → 2025-02-20 | Outpatient (CLI) | payer OTHER ==
[~2025-02-20] MED LIST changes: -AMBI5TAB PO; +TOPI-14 PO; +TOPI-257; +TOPI-257 PO; -TOPI100T9; -TOPI100T9 PO; -TOPI200T7 PO; +ZOLP-532 PO
[2025-02-20 12:06] LABS: BASO # 0.1 10^3/uL (0.0-0.2); EOS # 0.2 10^3/uL (0.0-0.5); HEMOGLOBIN 12.7 g/dl (12.0-15.5); LYMPH # 1.9 10^3/uL (1.5-5.0); LYMPH % 26.3 % (24.0-44.0); MEAN CORPUSCULAR HEMOGLOBIN 29.3 pg (27.0-33.0); MEAN CORPUSCULAR HGB CONC 32.6 g/dl (32.0-36.5); MEAN CORPUSCULAR VOLUME 90.1 fl (80.0-96.0); MONO # 0.4 10^3/uL (0.0-0.8); MONO % 5.8 % (2.0-8.0); NEUTROPHILS # 4.6 10^3/uL (1.5-8.5); NEUTROPHILS % 63.6 % (36.0-66.0); PLATELET COUNT, AUTOMATED 260 10^3/uL (150-450); RED BLOOD COUNT 4.33 10^6/uL (4.00-5.40); WHITE BLOOD COUNT 7.2 10^3/uL (4.0-10.0)
[2025-02-20 12:30] LABS: ALBUMIN 3.4 G/DL (3.2-5.2); ALKALINE PHOSPHATASE 50 U/L (35-104); ALT/SGPT 20 U/L (7.0-40); AST/SGOT 10 U/L (<34); BILIRUBIN,TOTAL 0.3 MG/DL (0.3-1.2); BLOOD UREA NITROGEN 11 MG/DL (9-23); CALCIUM LEVEL 9.2 MG/DL (8.5-10.1); CARBON DIOXIDE LEVEL 23 MMOL/L (20-31); CHLORIDE LEVEL 108 MMOL/L (98-107); CREATININE FOR GFR 0.74 MG/DL (0.55-1.30); GLOMERULAR FILTRATION RATE > 90.0 (>58); GLUCOSE, FASTING 81 MG/DL (60-100); POTASSIUM SERUM 3.7 MMOL/L (3.5-5.1); RHEUMATOID FACTOR QUANT < 3.5 IU/ML (<14); SODIUM LEVEL 140 MMOL/L (136-145); TOTAL PROTEIN 6.2 G/DL (5.7-8.2)
[2025-02-20 12:32] LABS: FOLATE 17.7 NG/ML (>5.4); THYROID STIMULATING HORMONE 0.849 uIU/ML (0.55-4.78); VITAMIN B12 LEVEL 518 PG/ML (211-911)
[2025-02-20 12:37] LABS: ERYTHROCYTE SEDIMENTATION RATE 4 mm/hr (0-20)
[2025-02-21 15:17] LABS: ANA SCREEN, IFA NEGATIVE (NEGATIVE)
== END ==
LOC: M LAB 11:27
PROVIDERS: ATTEND Psychiatry & Neurology Neurology
DX: R51.9 Headache, unspecified (principal)

== ENCOUNTER 2025-04-16 10:08 | Day surgery (SDC) | payer OTHER ==
[~2025-04-16] VITALS: Ht 157.5 cm; Wt 59.0 kg
[~2025-04-16 10:08] MED LIST changes: +DEPA250T PO; -DEPA250T2 PO; +SUCR1TAB56 PO
[2025-04-16] MEDS ORDERED: LIDOCAINE 2% 100 MG/5 ML SDV (FOR ANES.) As Ordered ONE (11:13)
[2025-04-16 13:40] VITALS: TEMP 97.9
[2025-04-16 14:00] VITALS: BP 110/69; O2SAT 100
== END 2025-04-16 14:01 | disposition home or self-care (01) ==
LOC: M OPP 10:08
PROVIDERS: ATTEND Internal Medicine Gastroenterology
DX: Z12.11 Encounter for screening for malignant neoplasm of colon (principal); K57.30 Diverticulosis of large intestine without perforation or abscess without bleeding; K64.0 First degree hemorrhoids; Z80.0 Family history of malignant neoplasm of digestive organs; K21.00 Gastro-esophageal reflux disease with esophagitis, without bleeding; K22.89 Other specified disease of esophagus; K44.9 Diaphragmatic hernia without obstruction or gangrene; R12 Heartburn; Z98.84 Bariatric surgery status; Z88.0 Allergy status to penicillin; Z88.2 Allergy status to sulfonamides; Z88.5 Allergy status to narcotic agent; Z91.048 Other nonmedicinal substance allergy status; Z79.899 Other long term (current) drug therapy
CPT/HCPCS: 43239; 45378; 88305; J3010

== ENCOUNTER → 2025-09-04 | Outpatient (CLI) | payer OTHER ==
[~2025-09-04] MED LIST changes: -IBUP-1022 PO; +IBUP600T42 PO
[2025-09-04 07:46] LABS: PLATELET COUNT, AUTOMATED 261 10^3/uL (150-450)
[2025-09-04 08:12] LABS: ALT/SGPT 22.0 U/L (7.0-40); AST/SGOT 16.0 U/L (<34); CALCIUM LEVEL 8.9 MG/DL (8.5-10.1); CARBON DIOXIDE LEVEL 25.0 MMOL/L (20-31); CHLORIDE LEVEL 110.0 MMOL/L (98-107); CHOLESTEROL LEVEL 208.0 MG/DL (<200); CHOLESTEROL RISK RATIO 4.42 (<5); CREATININE FOR GFR 0.86 MG/DL (0.55-1.30); GLOMERULAR FILTRATION RATE 84.9 (>58); IRON (FE) 80.0 UG/DL (50-170); LDL CHOLESTEROL 146.6 MG/DL (<100); MAGNESIUM LEVEL 1.7 MG/DL (1.8-2.4); NON-HDL-C 161.0 MG/DL; PERCENT SATURATION 28.4 % (13.2-45.0); PHOSPHORUS LEVEL 3.1 MG/DL (2.5-4.9); POTASSIUM SERUM 3.9 MMOL/L (3.5-5.1); SODIUM LEVEL 142.0 MMOL/L (136-145); TRIGLYCERIDES LEVEL 72.0 MG/DL (<150)
[2025-09-04 08:13] LABS: PTH INTACT 33.7 PG/ML (18.5-88.0)
[2025-09-04 08:14] LABS: TOTAL 25(OH) VITAMIN D 122.6 NG/ML (20.0-100.0); VITAMIN B12 LEVEL 814.0 PG/ML (211-911)
[2025-09-07 09:28] LABS: VITAMIN A, RETINOL LEVEL 49 mcg/dL (38-98)
== END ==
LOC: M LAB 07:05
PROVIDERS: ATTEND Family Medicine
DX: D50.9 Iron deficiency anemia, unspecified (principal); E78.5 Hyperlipidemia, unspecified; E83.42 Hypomagnesemia; Z98.84 Bariatric surgery status